=== PATIENT | male | born 1940 | race Caucasian/White ===

== ENCOUNTER 2021-12-22 13:41 | Observation (INO) | payer OTHER ==
--- OUTSIDE RECORDS SUMMARY | 2021-12-22 13:43 | XMS REPORT | Continuity of Care Document ---
:1940 Author Organization [facility] t Address [address] [place] [address] Care Team Providers Name Role Phone Cosme JACSKON, N.S. Primary Care Physician Cosme JACKSON, N.S. Attending Clinician Bill Covington MD Attending Clinician Star Attending Clinician Unavailable COSME Admitting Clinician Unavailable Payers Payer Name Policy Type Policy Number Effective Date Expiration Date S ource Problems This patient has no known problems. Allergies, Adverse Reactions, Alerts Allergy Allergy Status Severity Reaction(s) Onset Inactive Treating Comm ents Source Name Type Date Date Clinician Sulfa Propensi Active Other (See Spitting Me thodi (Sulfona ty to Comments) 3-25 ou blood, st mide adverse 00:00: blood in Hospita Antibiot reaction 00 urine, l ics) s to fever drug Social History Social Habit Start Date Stop Date Quantity Comments Source History SDOH [facility] Alcohol Frequency Hospita l History SDOH [facility] Alcohol Std Hospital Drinks History SDOH [facility] Alcohol Binge Hospital Alcohol intake 2021-02-01 2021-02-01 .29 /d [facility] 00:00:00 00:00:00 Hospital Tobacco use and 2021-01-28 2021-01-28 Smokeless tobacco Me [facility]odist exposure 00:00:00 00:00:00 non-user Hospital Alcohol Comment 2021-01-28 2021-01-28 2 glasses/week Metho dist 00:00:00 00:00:00 Hospital History of 1965-12-02 Smoker [facility] tobacco use 00:00:00 Hospital Sex Ass[birth year] At [birth year] [facility] 00:00:00 00:00:00 Hospital Smoking Status Start Date Stop Date Source Ex-smoker 2021-01-28 00:00:00 2021-01-28 00:00:00 [facility] Ordered Filled Start Stop Current Ordering Indication Dosage Frequency Signature Comments Components Source Medication Medication Date Date Medication? Clinician (SIG) Name Name glucosamine Yes 1{tbl} Take 1 Me thodi sulfate 500 3-[address] mg tablet 03:03: mouth. Hospit a 21 l cholecalcif Yes 1000U Take 1,000 [facility] denys, 3-[address] vitamin D3, 03:03: mouth. Hosp gretel 1,000 unit 21 l tablet multivitami Yes 1{tbl} Take 1 Me thodi n,tx-iron-m 3-[address] inerals 03:03: mouth. Hospita tablet 21 l aspirin 81 Yes 81mg Chew 81 Meth adonis mg chewable 3-[address] tablet 03:03: Hospita 21 l traMADoL Yes [facility] (ULTRAM) 50 3-24 st mg tablet 00:00: Hospita 00 l cephalexin 0 Yes [facility] (KEFLEX) 3-24 st 500 MG 00:00: Hospita capsule 00 l carbidopa-l Yes 1{tbl} Q.[id number] Take 1 [facility] evodopa 3-10 [id number] tablet by s t (SINEMET) 00:00: 3D mouth 3 Hospi ta 25-100 mg 00 (three) l per tablet times a day. promethazin Yes TAKE 1 Meth adonis e 3-[address] (PHENERGAN) 00:00: MOUTH 4 6 H ospita 25 MG 00 HOURS l tablet NEEDED FOR NAUSEA montelukast Yes 10mg QD Take 10 mg [facility] (SINGULAIR) 1-[address] 10 mg 00:00: every Hospita tablet 00 morning. l omeprazole Yes 40mg QD Take 40 mg M [facility] (PriLOSEC) 1-[address] 40 MG 00:00: daily. Hospita capsule 00 l finasteride Yes 5mg QD Take 5 mg M [facility] (PROSCAR) 5 1-[address] mg tablet 00:00: daily. Hospit a 00 l Vital Signs Vital Name Observation Time Observation Value Comments Source Systolic blood 2021-01-29 15:01:00 140 mm[Hg] [facility] pressure Diastolic blood 2021-01-29 15:01:00 63 mm[Hg] [facility] pressure Heart rate 2021-01-29 15:01:00 64 /min [facility] [place] [place] Body temperature 2021-01-29 15:01:00 36.56 Mary [facility] Respiratory rate 2021-01-29 15:01:00 15 /min [facility] Oxygen saturation in 2021-01-29 15:01:00 100 /min [facility] Arterial blood by Pulse oximetry Body height 2021-01-29 12:40:[address] [facility] [place] [place] Body weight 2021-01-29 12:40:[address] [facility] [place] [place] BMI 2021-01-29 12:40:00 34.73 kg/m2 [facility] [place] [place] Procedures Procedure Date / Time Performed Performing Clinician Sourc e RECONSTRUCTION, EYELID 2021-01-29 [facility]:32[facility] 2021-01-26 15:20:00 [facility] 2021-01-04 18:35:00 [facility] Arun [facility] RT-PCR COVID-19 QUALITATIVE 2020-12-14 16:15:00 [facility] RT-PCR Plan of Care Planned Activity Planned Date Details Comments Source Future Scheduled 2021-12-07 COVID-19 VACCINE (1) [facility] Test 19:38:07 [code = COVID-19 VACCINE (1)] Future Scheduled 2021-12-07 SHINGLES VACCINES (#1) [facility] Test 19:38:07 [code = SHINGLES VACCINES (#1)] Future Scheduled 2021-12-07 65+ PNEUMOCOCCAL [facility] Test 19:38:07 VACCINE (1 of 1 - PPSV23) [code = 65+ PNEUMOCOCCAL VACCINE (1 of 1 - PPSV23)] Future Scheduled 2021-12-07 [facility]ACCINE [facility] 19:38:07 [code = INFLUENZA VACCINE] Encounters Start End Encounter Admission Attending Care Care Encounter Source Date/Time Date/Time Type Type Clinicians Facility Department ID 2021-01-29 2021-01-29 [facility] 1.2.840.1 [id number] [facility] 05:46:00 23:59:00 Encounter Arun [id number] 3.430.2.7 Hospit a .3.652919 l .8 2021-01-29 2021-01-29 Anesthesia Herbie Covington 1.2.840 .1 [id number] [facility] 08:32:00 09:33:00 Event Fernando Graves 63171.1.[address] 3.430.2.7 Hospit a .3.227484 l .8 2021-01-29 2021-01-29 Surgery [facility] 1.2.840.1 [id number] [facility] 07:30:00 08:15:[id number] 3.430.2.7 Hospit a .3.570445 l .8 2021-01-29 2021-01-29 Travel 1.2.840.1 1.2.284.167 [id number] [facility] 00:00:00 00:00:[address] 3.430.2.7 0.2.7.3.698 Ho spita .3.959790 084.8 l .8 2021-01-26 2021-01-26 [facility], 1.2.840.1 [id number] [facility] 10:11:57 10:16:[address] 3.430.2.7 Hospit a .3.637351 l .8 2021-01-26 2021-01-26 Travel 1.2.840.1 1.2.321.778 [id number] [facility] 00:00:00 00:00:[address] 3.430.2.7 0.2.7.3.698 Ho spita .3.921704 084.8 l .8 2021-01-04 2021-01-04 Lab Cosme, 1.2.840.1 [id number] [facility] 12:32:25 12:37:[address] 3.430.2.7 Hospit a .3.557015 l .8 2021-01-04 2021-01-04 Travel 1.2.840.1 1.2.256.903 [id number] [facility] 00:00:00 00:00:[address] 3.430.2.7 0.2.7.3.698 Ho spita .3.667263 084.8 l .8 2020-12-14 2020-12-14 Lab Cosme, 1.2.840.1 [id number] [facility] 10:04:59 10:19:[address] 3.430.2.7 Hospit a .3.621448 l .8 2020-12-14 2020-12-14 Travel 1.2.840.1 1.2.299.538 [id number] [facility] 00:00:00 00:00:[address] 3.430.2.7 0.2.7.3.698 Ho spita .3.141863 084.8 l .8 Results Test Description Test Time Test Comments Results Result Comments Source COVID-19 qualitative PCR 2021-01-27 00:21:42 Test Item Value Reference Range Interpretation Comme nts Interpretation (test code = Negative results do not [id number]) preclude 2019-nCoV infection and should not be used as the sole basis for treatment or other patient management decisions. Negative results must be combined with clinical observations, patient history, and epidemiological information. COVID-19 qualitative RT-PCR Not-Detected Not-Detected result (test code = 61572-3) COVID-19 qualitative RT-PCR See link below for PDF Lab Case Number: (test code = 7070) Report [id number] 001 [facility]
[2021-12-22 15:08] LABS: Absolute Lymphocytes (CBC) 2.7 K/uL (0.7-4.9); Hematocrit 42.6 % (39.6-49.0); Lymphocytes % 39.9 % (15.3-44.8); MPV 9.1 fL (7.6-11.3)
--- NOTE | 2021-12-22 15:09 | RAD REPORT ---
EXAM DESCRIPTION: RAD - Chest Single View - 12/22/2021 3:03 pm CLINICAL HISTORY: CHEST PAIN COMPARISON: Chest Pa And Lat (2 Views) dated 07/24/2018; CHEST PA AND LAT 2 VIEW dated 02/21/2013; IRENE ST SINGLE VIEW dated 06/11/2010 FINDINGS: Lines: None. Lungs: No evidence of edema or pneumonia. Pleural: No significant pleural effusions or pneumothorax. Cardiac: The heart size is within normal limits. Bones: No acute fractures. Other: IMPRESSION: No acute cardiopulmonary disease.
[2021-12-22 15:22] LABS: Protime INR 1.14
[2021-12-22 15:27] LABS: Albumin 3.7 g/dL (3.4-5.0); Bilirubin Direct 0.2 mg/dL (0-0.2); Bilirubin Total 0.6 mg/dL (0.2-1.0); Protein, Total 7.5 g/dL (6.4-8.2); Troponin High Sensitivity 15.2 pg/mL (<58.9)
[2021-12-22 15:47] LABS: Potassium 4.8 mmol/L (3.5-5.1)
[2021-12-22] MEDS ORDERED: METOPROLOL TARTRATE 5 MG/5 ML INJ IV ONE (17:28)
--- NOTE | 2021-12-22 18:18 | ER ---
Nurse's Notes [facility] Name: Good Pinzon Age: 81 yrs Sex: Male : 1940 Arrival Date: 12/22/2021 Time: 13:43 Bed 23 Private MD: Valerie Bray C Diagnosis: Unspecified atrial fibrillation;Chest pain, unspecified;Shortness of breath;Palpitations;Weakness Presentation: 12/22 13:52 Chief complaint: Patient states: I woke up \T\ 0300 with chest tightness, sob, and jg9 weakness, I could hardly walk from one end of the room to the other without having to grab onto something, reports dizziness. Coronavirus screen: Vaccine status: Patient reports receiving the 2nd dose of the covid vaccine. Ebola Screen: Patient negative for fever greater than or equal to 101.5 degrees Fahrenheit, and additional compatible Ebola Virus Disease symptoms Patient denies exposure to infectious person. Patient denies travel to an Ebola-affected area in the 21 days before illness onset. Initial Sepsis Screen: Does the patient meet any 2 criteria? No. Patient's initial sepsis screen is negative. Does the patient have a suspected source of infection? No. Patient's initial sepsis screen is negative. Risk Assessment: Do you want to hurt yourself or someone else? Patient reports no desire to harm self or others. Onset of symptoms is unknown. 13:52 Method Of Arrival: Ambulatory j9 13:52 Acuity: ISMAEL 3 jg9 Triage Assessment: 14:05 General: Appears in no apparent distress. Behavior is calm. Pain: Complains of pain in jg9 chest Pain does not radiate. Cardiovascular: Reports shortness of breath, chest pressure Denies. Historical: - PMHx: 14:04 Atrial fibrillation; jg9 - Immunization history:: Client reports receiving the 2nd dose of the Covid vaccine, Pneumococcal vaccine is up to date, Flu vaccine is up to date. - Social history:: Smoking status: Patient denies any tobacco usage or history of. Screenin:05 Abuse screen: Denies threats or abuse. Denies injuries from another. Nutritional jg9 screening: No deficits noted. Tuberculosis screening: No symptoms or risk factors identified. Fall Risk None identified. Assessment: 14:24 General: Appears in no apparent distress. comfortable, well groomed, Behavior is calm, cb5 cooperative, appropriate for age. Pain: Complains of pain in chest. Neuro: No deficits noted. Cardiovascular: No deficits noted. Respiratory: No deficits noted. GI: No deficits noted. : No signs and/or symptoms were reported regarding the genitourinary system. EENT: No deficits noted. Derm: No deficits noted. Musculoskeletal: No deficits noted. 15:30 Reassessment: Patient and/or family updated on plan of care and expected duration. Pain cb5 level reassessed. 16:30 Reassessment: Patient and/or family updated on plan of care and expected duration. Pain cb5 level reassessed. 18:30 Reassessment: Patient and/or family updated on plan of care and expected duration. Pain cb5 level reassessed. Patient is alert, oriented x 3, equal unlabored respirations, skin warm/dry/pink. 20:51 Reassessment: Patient and/or family updated on plan of care and expected duration. Pain ll3 level reassessed. Patient is alert, oriented x 3, equal unlabored respirations, skin warm/dry/pink. Vital Signs: 13:52 BP 115 / 94; Pulse 65; Resp 20; Temp 97.7(O); Pulse Ox 94% on R/A; Weight 102.06 kg jg9 (R); Height 5 ft. 10 in. (177.80 cm); 14:26 BP 156 / 90; Pulse 99; Resp 16; Temp 98.6; Pulse Ox 98% ; cb5 15:30 BP 113 / 70; Pulse 100; Resp 16; Pulse Ox 98% ; Pain 0/10; cb5 16:00 BP 125 / 85; Pulse 62; Resp 16; Pain 0/10; cb5 17:30 BP 131 / 88; Pulse 108; Resp 16; Pulse Ox 98% ; Pain 0/10; cb5 17:35 BP 112 / 84; Pulse 96; Resp 16; Pulse Ox 98% ; cb5 17:45 BP 109 / 72; Pulse 101; Resp 16; Pulse Ox 98% ; cb5 18:00 BP 112 / 67; Pulse 93; Resp 16; Pulse Ox 98% ; cb5 18:15 BP 120 / 74; Pulse 96; Resp 16; Pulse Ox 98% ; Pain 0/10; cb5 19:00 BP 125 / 78; Pulse 74; Resp 14; Pulse Ox 98% ; ll3 20:17 BP 115 / 78; Pulse 60; Resp 15; Pulse Ox 98% ; ll3 20:30 BP 100 / 71; Pulse 74; Resp 16; Pulse Ox 98% ; ll3 13:52 Body Mass Index 32.28 (102.06 kg, 177.80 cm) j9 ED Course: 13:43 Patient arrived in ED. rg4 13:43 Valerie Bray MD is Private Physician. rg4 14:04 Triage completed. jg9 14:06 Arm band placed on left wrist. jg9 14:10 Cj Cherry MD is Attending Physician. kdr 14:24 Cathy Causey, RAMSES is Primary Nurse. cb5 15:02 Basic Metabolic Panel Sent. cb5 15:02 CBC with Diff Sent. cb5 15:02 LFT's Sent. cb5 15:02 Magnesium Sent. cb5 15:02 NT PRO-BNP Sent. cb5 15:02 PT-INR Sent. cb5 15:02 Troponin HS Sent. cb5 15:02 Basic Metabolic Panel Sent. cb5 15:03 XRAY Chest (1 view) In Process Unspecified. EDMS 18:17 Valerie Bray MD is Hospitalizing Provider. kdr 19:07 Report given to Phani Ambrose cb5 12/23 01:19 No provider procedures requiring assistance completed. Patient admitted, IV remains in ll3 place. No redness/swelling at site. Patient maintains SpO2 saturation greater than 95% on room air. Administered Medications: 12/22 17:32 Drug: Lopressor (metoprolol) 2.5 mg Route: IVP; Site: right antecubital; cb5 20:00 Drug: Eliquis (apixaban) 5 mg Route: PO; ll3 20:52 Follow up: Response: No adverse reaction ll3 20:00 Drug: Sotalol 80 mg Route: PO; ll3 20:52 Follow up: Response: No adverse reaction ll3 Outcome: 18:17 Decision to Hospitalize by Provider. kdr 12/23 01:19 Admitted to Med/surg accompanied by tech, via wheelchair, room 210, with chart, Report ll3 called to Timothy, RN Condition: stable Discharge instructions given to patient, Instructed on the need for admit, Demonstrated understanding of instructions. 01:20 Patient left the ED. ll3 Signatures: Dispatcher [employer] Cj Roa MD MD kdr Samantha Parra4 Arnol Roper RN RN ll3 Didi Moreno RN RN jg9 Cathy Causey RN RN cb5
--- NOTE | 2021-12-22 18:18 | EDPHYS ---
Physician Documentation [facility] Name: Good Pinzon Age: 81 yrs Sex: Male : 1940 Arrival Date: 12/22/2021 Time: 13:43 Bed 23 Private MD: Valerie Bray C ED Physician Cj Cherry HPI: 12/23 18:19 This 81 yrs old Male presents to ER via Ambulatory with complaints of Chest Pain, kdr Shortness Of Breath. 18:19 Patient woke at 3 AM with chest tightness and shortness of breath and weakness. He kdr stated he could hardly walk from one of the room to the other without having to grab onto something because he was dizzy. He has not had episodes as severe but has had similar episodes in the past. Historical: - PMHx: 12/22 14:04 Atrial fibrillation; jg9 - Immunization history:: Client reports receiving the 2nd dose of the Covid vaccine, Pneumococcal vaccine is up to date, Flu vaccine is up to date. - Social history:: Smoking status: Patient denies any tobacco usage or history of. ROS: 12/23 18:19 Constitutional: Negative for fever, chills, and weight loss, Eyes: Negative for injury, kdr pain, redness, and discharge, ENT: Negative for injury, pain, and discharge, Neck: Negative for injury, pain, and swelling, Abdomen/GI: Negative for abdominal pain, nausea, vomiting, diarrhea, and constipation, Back: Negative for injury and pain, : Negative for injury, bleeding, discharge, and swelling, MS/Extremity: Negative for injury and deformity, Skin: Negative for injury, rash, and discoloration, Psych: Negative for depression, anxiety, suicide ideation, homicidal ideation, and hallucinations, Allergy/Immunology: Negative for hives, rash, and allergies, Endocrine: Negative for neck swelling, polydipsia, polyuria, polyphagia, and marked weight changes, Hematologic/Lymphatic: Negative for swollen nodes, abnormal bleeding, and unusual bruising. Cardiovascular: Positive for chest pain, palpitations. Neuro: Positive for dizziness, Negative for altered mental status. Exam: 18:19 Constitutional: This is a well developed, well nourished patient who is awake, alert, kdr and in no acute distress. Head/Face: Normocephalic, atraumatic. Eyes: Pupils equal round and reactive to light, extra-ocular motions intact. Lids and lashes normal. Conjunctiva and sclera are non-icteric and not injected. Cornea within normal limits. Periorbital areas with no swelling, redness, or edema. Neck: Trachea midline, no thyromegaly or masses palpated, and no cervical lymphadenopathy. Supple, full range of motion without nuchal rigidity, or vertebral point tenderness. No Meningismus. Chest/axilla: Normal chest wall appearance and motion. Nontender with no deformity. No lesions are appreciated. Cardiovascular: Regular rate and rhythm with a normal S1 and S2. No gallops, murmurs, or rubs. Normal PMI, no JVD. No pulse deficits. Respiratory: Lungs have equal breath sounds bilaterally, clear to auscultation and percussion. No rales, rhonchi or wheezes noted. No increased work of breathing, no retractions or nasal flaring. Abdomen/GI: Soft, non-tender, with normal bowel sounds. No distension or tympany. No guarding or rebound. No evidence of tenderness throughout. Back: No spinal tenderness. No costovertebral tenderness. Full range of motion. Skin: Warm, dry with normal turgor. Normal color with no rashes, no lesions, and no evidence of cellulitis. MS/ Extremity: Pulses equal, no cyanosis. Neurovascular intact. Full, normal range of motion. Neuro: Awake and alert, GCS 15, oriented to person, place, time, and situation. Cranial nerves II-XII grossly intact. Motor strength 5/5 in all extremities. Sensory grossly intact. Cerebellar exam normal. Normal gait. Psych: Awake, alert, with orientation to person, place and time. Behavior, mood, and affect are within normal limits. Vital Signs: 12/22 13:52 BP 115 / 94; Pulse 65; Resp 20; Temp 97.7(O); Pulse Ox 94% on R/A; Weight 102.06 kg jg9 (R); Height 5 ft. 10 in. (177.80 cm); 14:26 BP 156 / 90; Pulse 99; Resp 16; Temp 98.6; Pulse Ox 98% ; cb5 15:30 BP 113 / 70; Pulse 100; Resp 16; Pulse Ox 98% ; Pain 0/10; cb5 16:00 BP 125 / 85; Pulse 62; Resp 16; Pain 0/10; cb5 17:30 BP 131 / 88; Pulse 108; Resp 16; Pulse Ox 98% ; Pain 0/10; cb5 17:35 BP 112 / 84; Pulse 96; Resp 16; Pulse Ox 98% ; cb5 17:45 BP 109 / 72; Pulse 101; Resp 16; Pulse Ox 98% ; cb5 18:00 BP 112 / 67; Pulse 93; Resp 16; Pulse Ox 98% ; cb5 18:15 BP 120 / 74; Pulse 96; Resp 16; Pulse Ox 98% ; Pain 0/10; cb5 19:00 BP 125 / 78; Pulse 74; Resp 14; Pulse Ox 98% ; ll3 20:17 BP 115 / 78; Pulse 60; Resp 15; Pulse Ox 98% ; ll3 20:30 BP 100 / 71; Pulse 74; Resp 16; Pulse Ox 98% ; ll3 13:52 Body Mass Index 32.28 (102.06 kg, 177.80 cm) jg9 MDM: 18:17 Patient medically screened. [facility] 12/23 18:19 Data reviewed: vital signs, nurses notes, lab test result(s), radiologic studies. kdr Counseling: I had a detailed discussion with the patient and/or guardian regarding: the historical points, exam findings, and any diagnostic results supporting the discharge/admit diagnosis, lab results, radiology results, the need for outpatient follow up. 12/22 14:15 Order name: Basic Metabolic Panel [facility] 12/22 14:15 Order name: CBC with Diff; Complete Time: 16:52 [facility] 12/22 14:15 Order name: LFT's; Complete Time: 16:52 [facility] 12/22 14:15 Order name: Magnesium; Complete Time: 16:52 [facility] 12/22 14:15 Order name: NT PRO-BNP; Complete Time: 16:52 [facility] 12/22 14:15 Order name: PT-INR; Complete Time: 16:52 [facility] 12/22 14:15 Order name: Troponin HS; Complete Time: 16:52 [facility] 12/22 14:16 Order name: Basic Metabolic Panel; Complete Time: 16:52 ED[facility] 12/22 18:28 Order name: Basic Metabolic Panel [facility] 12/22 18:28 Order name: Basic Metabolic Panel [facility] 12/22 18:28 Order name: CBC with Automated Diff [facility] 12/22 18:28 Order name: CBC with Automated Diff [facility] 12/22 19:01 Order name: COVID-19 SARS RT PCR (Document "Date of Onset" if Symptomatic) bd 12/23 00:13 Order name: SARS-COV-2 RT PCR [facility] 12/22 14:06 Order name: EKG - Nurse/Tech; Complete Time: 14:06 jg9 12/22 14:15 Order name: XRAY Chest (1 view); Complete Time: 16:52 kdr 12/22 14:15 Order name: EKG; Complete Time: 14:16 kdr 12/22 14:15 Order name: Cardiac monitoring; Complete Time: 15:02 kdr 12/22 14:15 Order name: IV Saline Lock; Complete Time: 15:02 kdr 12/22 14:15 Order name: Labs collected and sent; Complete Time: 15:02 kdr 12/22 14:15 Order name: O2 Per Protocol; Complete Time: 15:02 kdr 12/22 14:15 Order name: O2 Sat Monitoring; Complete Time: 15:02 kdr 12/22 18:28 Order name: CONS Physician Consult [facility] 12/22 18:28 Order name: EKG Electrocardiogram [facility] 12/22 18:28 Order name: EKG Electrocardiogram [facility] 12/22 18:28 Order name: EKG Electrocardiogram [facility] 12/22 18:28 Order name: EKG Electrocardiogram [facility] Administered Medications: 12/22 17:32 Drug: Lopressor (metoprolol) 2.5 mg Route: IVP; Site: right antecubital; cb5 20:00 Drug: Eliquis (apixaban) 5 mg Route: PO; ll3 20:52 Follow up: Response: No adverse reaction ll3 20:00 Drug: Sotalol 80 mg Route: PO; ll3 20:52 Follow up: Response: No adverse reaction ll3 Disposition Summary: 12/22/21 18:17 Hospitalization Ordered Hospitalization Status: Inpatient Admission kdr Provider: Valerie Bray Location: Telemetry/MedSurg (Inpatient) kdr Condition: Fair kdr Problem: new kdr Symptoms: have improved kdr Bed/Room Type: Standard kdr Room Assignment: 210(12/23/21 00:15) eb1 Diagnosis - Unspecified atrial fibrillation kdr - Chest pain, unspecified kdr - Shortness of breath kdr - Palpitations kdr - Weakness kdr Forms: - Medication Reconciliation Form kdr - SBAR form kdr Signatures: Dispatcher [employer] Cj Roa MD MD kdr Basinger, Emily, RN RN eb1 Arnol Roper RN RN ll3 Didi Moreno RN RN jg9 Cathy Causey RN RN cb5 Corrections: (The following items were deleted from the chart) 12/23 00:15 12/22 18:17 kdr eb1
[2021-12-22] MEDS ORDERED: ACETAMINOPHEN 500 MG TAB PO PRN (18:25)
[2021-12-22] MEDS ORDERED: ONDANSETRON 4 MG/2 ML VIAL IV PRN (18:25)
[2021-12-22] MEDS: APIXABAN 5 MG TABLET PO SCH (21:00)
[2021-12-22 22:16] VITALS: O2SAT 95
[2021-12-23] MEDS ORDERED: NA CHLORIDE 0.9% 500 ML ONE (00:26)
[2021-12-23 01:50] VITALS: BMI 31.4
[2021-12-23] MEDS ORDERED: NA CHLORIDE 0.9% 250 ML IV ONE ×2 (04:54→05:31)
[2021-12-23] MEDS ORDERED: SOTALOL HCL 80 MG TAB PO SCH (06:00)
[2021-12-23 06:16] LABS: Absolute Lymphocytes (CBC) 2.7 K/uL (0.7-4.9); Hematocrit 39.7 % (39.6-49.0); MPV 8.6 fL (7.6-11.3); RBC Red Blood Cell Count 4.25 M/uL (4.33-5.43)
[2021-12-23 06:27] LABS: Potassium 4.3 mmol/L (3.5-5.1)
[2021-12-23] MEDS ORDERED: PANTOPRAZOLE 40MG TABLET PO SCH (06:30)
[2021-12-23 06:38] LABS: Thyroid Stimulating Hormone 2.17 uIU/mL (0.360-3.740)
[2021-12-23 07:51] LABS: Troponin High Sensitivity 23.1 pg/mL (<58.9)
[2021-12-23 08:20] LABS: Blood Morphology Comment NOT SEEN (NOT SEEN); Platelet Estimate ADEQ
--- NOTE | 2021-12-23 08:46 | HP ---
Date of Admission: 12/22/2021 Chief Complaint: Not feeling good. History Of Present Illness: This is an 81-year-old pleasant male patient, who came into office today with his reporting that since he woke up this morning, he has not felt good. He felt like octavio patel some chest tightness, feeling really tired, getting short of breath easily with just walking acros s the room, and also feeling dizzy. He checked his blood pressure and pulse several times since he w mayelin up and his heart rate has been around 110 to 128 range and blood pressure has been on the lower s juan around 90/50 range. After I saw him in the office, decision was made to send him to emergency ro om for further evaluation and management for new onset atrial fibrillation problem and details were d iscussed with ER physician requesting evaluation for this problem after the patient was evaluated in the ER. He had atrial fibrillation with rapid ventricular rate. He was given 1 dose of IV Lopressor 2.5 mg and blood pressure improved, and he was admitted to the hospital. Allergies: TO SULFA. Medications: Aspirin 81 mg daily, atorvastatin 20 mg daily, carbidopa/levodopa 50/200 mg as prescrib ed by neurologist, montelukast 10 mg daily, tamsulosin 0.4 mg daily, omeprazole 40 mg daily, vitamin D3 daily. Review of Systems: Constitutional: As mentioned above. Cardiovascular: As mentioned above. All other systems reviewed and negative. Past Medical History: Significant for Parkinson disease, gastroesophageal reflux disease, nonalcohol ic fatty liver disease, benign prostatic hypertrophy, anemia. DVT in 1988, 2000, and 2006 and was ev aluated by mobility manager, Dr. Ingram and did not recommend any long-term anticoagulation therapy. Past Surgical History: Significant for hernia repair, appendectomy, knee surgery. Family History: Father , had prostate cancer. Mother , had colon cancer. Brother , had leukemia. Social History: Prior history of smoking. Use of alcohol occasional glass of wine. Immunization History: The patient had his influenza vaccine on August 15, 2020 and COVID-19 vaccine on December 05, 2020, second dose on January 03, 2021, and third dose August 10, 2021. Physical Examination: Vital Signs: When the patient came to office earlier today; pulse rate was 128 and irregular. Manua l blood pressure was 90/60, respiratory rate 16, weight 225.2 pounds, height 70 inches. General: Awake, alert, oriented, not in distress. HEENT: Head atraumatic, normocephalic. Conjunctivae nonerythematous. Sclerae white. Mouth, no thr ush or edema noted. Ears/Nose, no mass, lesion, discharge noted. Neck: Supple. No JVD, lymph nodes, bruit, thyromegaly noted. Lungs: Bilateral good equal air entry. Clear to auscultation. No rhonchi. No rales. Heart: Normal heart sounds, no murmur or gallop. Abdomen: Soft, bowel sounds normal. No guarding, rigidity, tenderness, mass, hepatosplenomegaly, dis tention, or bruit noted. Extremities: No leg edema. No calf tenderness. Skin: No rash, ulcer, cellulitis. Lymphatics: No lymph node enlargement in neck, supraclavicular, infraclavicular region. Neuro: No focal neurological deficit. Chest: Unremarkable. External Genitalia: Deferred. Rectal: Deferred. Laboratory Data: COVID-19 test negative. Chest x-ray, no acute changes. White count 6.7, hemoglobi n of 14.4, platelets 163. Sodium 138, potassium 4.8, chloride 106, bicarb 28, BUN 18, creatinine 1.2 9, glucose 93, magnesium 2. Liver function tests unremarkable. Impression: 1.Atrial fibrillation, paroxysmal. 2.Parkinson disease. 3.Chest pain. 4.Gastroesophageal reflux disease. 5.Benign prostatic hypertrophy. 6.Nonalcoholic fatty liver disease. Plan: Admit the patient to hospital for further evaluation and management of this problem. For dajuan ortiz, he is expected to spend 2 midnights in hospital. We will admit him to telemetry, start him on Eliquis and sotalol. Consult Cardiology. We will get echo with Doppler tomorrow and home medicatio ns will be continued per order. Details and plan of treatment discussed with the patient. I will se e him tomorrow for followup. CORBY/MODL Voice ID: [id number]
[2021-12-23] MEDS ORDERED: TAMSULOSIN 0.4 MG SR CAP PO SCH (09:00)
[2021-12-23] MEDS ORDERED: MONTELUKAST 10 MG TAB PO SCH (09:00)
[2021-12-23] MEDS ORDERED: AMIODARONE HCL 200 MG TAB PO SCH (09:00)
[2021-12-23] MEDS ORDERED: ASPIRIN EC 81 MG TAB PO SCH (09:00)
[2021-12-23] MEDS: APIXABAN 5 MG TABLET PO SCH (09:56)
[2021-12-23] MEDS: CARBIDOPA/LEVODOPA 25/250 TAB PO SCH ×2 (09:56→12:52)
[2021-12-23 17:22] VITALS: BP 111/57; TEMP 98.3
[2021-12-23] MEDS ORDERED: ATORVASTATIN 20 MG TAB PO SCH (21:00)
--- NOTE | 2021-12-23 21:25 | CON ---
Date of Consultation: 12/23/2021 Reason For Consultation: Atrial fibrillation. History Of Present Illness: An 81-year-old male with a history of Parkinson disease, anemia, and DVT , presented to Dr. Bray's office due to not feeling well. He was found to be in atrial fibrillation with rapid ventricular response range of the 120s. Sent to the emergency room, received one dose of sotalol, one dose of IV Lopressor and converted to sinus rhythm. However, the patient became hypoten sive after some hydration. Blood pressure went up and sotalol was discontinued. Past Medical History: As outlined above in the HPI. Medications: Refer reconciliation sheet for detailed list. Allergies: SULFA. Family History: No mature coronary artery disease or cancer. Social History: Does not smoke or drink. Does not use any drugs. Review of Systems: All systems reviewed and they were negative except for mentioned in HPI. Physical Examination: Vital Signs: Temperature is 98.0, pulse 73, breathing at 19, blood pressure 113/58, saturating 98% r oom air. General: Pleasant elderly male, in no apparent distress. Head and Neck: Pupils are equal, reactive to light. Intact eye movements. No JVD. No cervical lym phadenopathy. Neck: Supple. Thyroid is not enlarged. Lungs: Clear to auscultation bilaterally. No rhonchi, rales, or crackles. No accessory muscle use. Heart: Irregular. No extra sounds. Abdomen: Soft, nontender. Bowel sounds positive. No organomegaly. No masses or hernia. No rigidi ty or rebound. Extremities: No edema, clubbing or cyanosis. Intact pulses. Skin: No rashes. Neurologic: Alert, awake, oriented x3. No acute focal deficits appreciated. Investigations: Troponins are negative. Creatinine is 1.0. Liver enzymes are normal. Assessment And Recommendation: Atrial fibrillation with rapid ventricular response. The patient con verted to sinus rhythm on one dose of sotalol. I recommend to put him on amiodarone 200 mg by mouth twice a day. Observe him. If he continues to be stable overnight, can be discharged on that and fol low up with me in a month at the office at which time, we will reduce it to 200 mg daily. I am choos ing amiodarone due to low blood pressure and not ability to continue with sotalol. Thank you for the consult. SR/MODL Voice ID: [id number] Report ID: [id number]
--- NOTE | 2021-12-24 07:32 | ECHO ---
HEIGHT: 5 ft 10 in WEIGHT: 219 lb 6.4 oz DATE OF STUDY: 12/23/[address]: Srikanth Bray MD 2-DIMENSIONAL: YES M.MODE: YES DOPPLER: YES COLOR FLOW: YES TDS: NO PORTABLE: NO DEFINITY: NO BUBBLE STUDY: NO DIAGNOSIS: ATRIAL FIBRILLATION CARDIAC HISTORY: CATHERIZATION: NO SURGERY: NO PROSTHETIC VALVE: NO PACEMAKER: NO MEASUREMENTS (cm) DIASTOLIC (NORMALS) SYSTOLIC (NORMALS) IVSd 1.2 (0.6-1.2) LA Diam 3.8 (1.9-4.0) LVEF 51% LVIDd 4.6 (3.5-5.7) LVIDs 3.4 (2.0-3.5) %FS 26% LVPWd 1.2 (0.6-1.2) Ao Diam 2.7 (2.0-3.7) 2 DIMENSIONAL ASSESSMENT: RIGHT ATRIUM: NORMAL LEFT ATRIUM: ENLARGED RIGHT VENTRICLE: NORMAL LEFT VENTRICLE: NORMAL TRICUSPID VALVE: MITRAL VALVE: PULMONIC VALVE: AORTIC VALVE: NORMAL PERICARDIAL EFFUSION: TRACE AORTIC ROOT: NORMAL LEFT VENTRICULAR WALL MOTION: NOT SEEN WELL DOPPLER/COLOR FLOW: SEE BELOW COMMENTS: TECHNICALLY DIFFICULT STUDY BUT LEFT VENTRICULAR EJECTION FRACTION APPEARS TO BE ON THE LOW NORMAL LIMITS. LEFT ATRIAL ENLARGEMENT. MILD MITRAL, TRICUSPID AND PULMONARY REGURGITATION. TECHNOLOGIST: Sanjuanita KELLER
--- NOTE | 2021-12-24 18:43 | DS ---
Date of Discharge: 12/23/2021 Disposition: Discharged to go home. Physical Examination: HEENT: Unremarkable. Lungs: Clear to auscultation. Heart: Sounds normal. Abdomen: Soft. Bowel sounds normal. No guarding, rigidity, tenderness, distention. Extremities: No leg edema. Discharge Medications And Instructions: 1. Continue all prior home medications except stop aspirin. 2. Start amiodarone 200 mg by mouth 2 times a day. 3. Eliquis 5 mg by mouth 2 times a day. 4. Follow up at my office next week on , which is December 30, 2021, at 9 a.m. Final Diagnoses: 1. Atrial fibrillation, paroxysmal. 2. Parkinson disease. 3. Chest pain. 4. Gastroesophageal reflux disease. 5. Benign prostatic hypertrophy. 6. Nonalcoholic fatty liver disease. Laboratory Data: Upon admission yesterday white count 6.7, hemoglobin 14.4, platelets 163. Today, white count 6.3, hemoglobin 13.3, platelets 164. Yesterday sodium 138, potassium 4.8, chloride 106, bicarb 28, BUN 18, creatinine 1.29, glucose 93. Liver function tests unremarkable. Magnesium normal at 2 today, TSH normal at 2.17. Troponin was normal yesterday. Hospital Course: An 81-year-old pleasant male patient, who came into office yesterday complaining of not feeling good. Please see dictated H and P for more information. The patient was evaluated at the office, he was diagnosed as having new onset atrial fibrillation with rapid ventricular rate. His blood pressure was low at office, it was 90/60 and he was sent to emergency room. After he was evaluated in the emergency room, he was admitted to the hospital. He received 2.5 mg of IV Lopressor in the emergency room and received 1 dose of sotalol 80 mg in the ER yesterday evening and Eliquis 5 mg. Early this morning around 4 o'clock or so, his blood pressure dropped down around 84 to 85 systolic and he was asymptomatic lying in bed. The patient had converted to sinus rhythm sometime last night while he was still in the emergency room and ever since he came to the floor around 1:30 a.m. he has been in sinus rhythm. This morning when I saw him, he was in sinus bradycardia with sinus arrhythmia and prior to my arrival, he received 500 cc of IV fluid bolus as ordered for low blood pressure and that actually helped, his systolic blood pressure came up to 102 to 104 systolic. The patient was feeling fine. Details were discussed with his signal tower operator, Dr. Tee, who was requested to evaluate the patient for this atrial fibrillation problem and I did discuss with him about all these details. The patient had converted to sinus rhythm after just receiving 1 dose of sotalol, but now considering low blood pressure this morning, I discontinued his sotalol and after talking to Dr. Tee, he suggested to start the patient on amiodarone 200 mg 2 times a day for 1 month and then reduce dose to 200 mg once a day. The patient received his first dose of amiodarone this morning and echocardiogram was done today, result pending. I will follow up on that as outpatient and the patient otherwise remained medically stable, so he was discharged to go home later this evening with above-mentioned medications and instructions. This morning when I saw the patient, I did inform him about taking his anticoagulation therapy, Eliquis as prescribed and he was made aware of bleeding complications and in case if he has any bleeding anywhere or if he has any head injury, tend to come to emergency room for evaluation. CORBY/ROSIE Voice ID: [id number] Report ID: [id number] MTDVíctor
--- NOTE | 2021-12-28 16:12 | EKG ---
Test Date: 2021-12-23 Test Time: 06:44:03 Director Independent: GOYO MEASUREMENT RESULTS: Intervals: Rate: 63 MO: 208 QRSD: 96 QT: 446 QTc: 456 [place]: P: 50 MO: 208 QRS: -57 T: -48 INTERPRETIVE STATEMENTS: Sinus rhythm with marked sinus arrhythmia Left axis deviation Cannot rule out Anterior infarct, age undetermined Abnormal ECG Compared to ECG 12/23/2021 06:43:12 Myocardial infarct finding now present Sinus bradycardia no longer present T-wave abnormality no longer present Possible ischemia no longer present Electronically Signed On 12-28-21 16:11:28 OB TECH by Zaire Zapien
== END 2021-12-23 19:24 | disposition home or self-care (01) ==
LOC: ER 13:41 → ERHOLD 18:27 → INTOOBSV 18:27 → ERHOLD 22:07 → 2ND 12-23 00:37
PROVIDERS: ADMIT Internal Medicine; ATTEND Internal Medicine
DX: I48.0 Paroxysmal atrial fibrillation (principal); G20 Parkinson's disease; R07.9 Chest pain, unspecified; K21.9 Gastro-esophageal reflux disease without esophagitis; I95.9 Hypotension, unspecified; N40.0 Benign prostatic hyperplasia without lower urinary tract symptoms; K76.0 Fatty (change of) liver, not elsewhere classified; D64.9 Anemia, unspecified; Z79.82 Long term (current) use of aspirin; Z88.2 Allergy status to sulfonamides; Z87.891 Personal history of nicotine dependence; Z86.718 Personal history of other venous thrombosis and embolism; Z20.822 Contact with and (suspected) exposure to COVID-19; Z80.42 Family history of malignant neoplasm of prostate; Z80.0 Family history of malignant neoplasm of digestive organs; Z80.6 Family history of leukemia
CPT/HCPCS: 93005 ×2; 93306; 85025 ×2; 80048 ×2; 36415; 83735; 85610; 80076; 84443; 84484 ×2; 83880; 71045; 96374; 99285; U0003; J7050 ×2; J7040; G0378 ×3

== ENCOUNTER 2022-02-02 07:50 | Emergency (ER) | payer OTHER ==
--- OUTSIDE RECORDS SUMMARY | 2022-02-02 07:54 | XMS REPORT | Continuity of Care Document ---
:1940 Author Organization [facility] t Address [address] [place] [address] Care Team Providers Name Role Phone Cosme JACKSON, N.S. Primary Care Physician Cosme JACKSON, N.S. [...] Stop Date Quantity Comments Source History SDOH Religion Alcohol Frequency Hospita l History SDOH Religion Alcohol Std Hospital Drinks History SDOH Religion Alcohol Binge Hospital Alcohol intake 2021-02-01 2021-02-01 .29 /d Religion 00:00:00 00:00:00 Hospital Tobacco use and 2021-01-28 2021-01-28 Smokeless tobacco Me [facility]od[facility] exposure 00:00:00 00:00:00 non-user Hospital Alcohol Comment 2021-01-28 2021-01-28 2 glasses/week [facility] 00:00:00 00:00:00 Hospital History of 1965-12-02 Smoker Religion tobacco use 00:00:00 Hospital Sex Assigned At [birth year] Religion 00:00:00 00:00:00 Hospital Smoking Status Start Date Stop Date Source Ex-smoker 2021-01-28 00:00:00 2021-01-28 [facility]00[facility] F[facility] Start Stop Current Ordering [...] Hospita capsule 00 l carbidopa-l Yes 1{tbl} [id number] Take 1 [facility] evodopa 3-10 [id number] tablet by s t (SINEMET) 00:00: 3D [...] Source Systolic blood 2021-01-29 15:01:00 140 mm[Hg] [facility] pressure Diastolic blood 2021-01-29 15:01:00 63 mm[Hg] [facility] pressure Heart rate 2021-01-29 15:01:00 64 /min [facility] Body temperature 2021-01-29 15:01:00 36.56 [facility] Respiratory rate 2021-01-29 15:01:00 15 /min [facility] Oxygen saturation in 2021-01-29 15:01:00 100 /min [facility] Arterial blood by Pulse oximetry Body height 2021-01-29 12:40:00 177.8 cm [facility] Body weight 2021-01-29 12:40:00 109.799 kg [facility] BMI 2021-01-29 12:40:00 34.73 kg/m2 [facility] Procedures Procedure Date / Time Performed Performing Clinician Sourc e RECONSTRUCTION, EYELID [facility]29 [facility] 2021-01-26 15:20:00 [facility] 2021-01-04 18:35:00 [facility] Arun [facility] RT-PCR COVID-19 QUALITATIVE 2020-12-14 16:15:00 [facility] RT-PCR Plan of Care Planned Activity Planned Date Details Comments Source Future Scheduled 2021-12-07 COVID-19 VACCINE (1) [facility] Test 19:38:07 [code = COVID-19 VACCINE (1)] Future Scheduled 2021-12-07 SHINGLES VACCINES (#1) [facility] Test 19:38:07 [code = SHINGLES VACCINES (#1)] Future Scheduled 2021-12-07 65+ PNEUMOCOCCAL [facility] Test 19:38:07 VACCINE (1 of 1 - PPSV23) [code = 65+ PNEUMOCOCCAL VACCINE (1 of 1 - PPSV23)] Future Scheduled 2021-12-07 [facility]INE [facility] Test 19:38:07 [code = INFLUENZA VACCINE] Encounters Start End Encounter Admission Attending Care Care Encounter Source Date/Time Date/Time Type Type Clinicians Facility Department ID 2021-01-29 2021-01-29 [facility] 1.2.840.1 [id number] [facility] 05:46:00 23:59:00 Encounter Arun [address]4079.1.[address] 3.430.2.7 Hospit a .3.189725 l .8 2021-01-29 2021-01-29 Anesthesia Herbie Covington 1.2.840 .1 [id number] [facility] 08:32:00 09:33:00 Event Fernando Graves [address]9718.1.[address] 3.430.2.7 Hospit a .3.666275 l .8 2021-01-29 2021-01-29 Surgery [facility] 1.2.840.1 [id number] [facility] 07:30:00 08:15:[address] 3.430.2.7 Hospit a .3.868402 l .8 2021-01-29 2021-01-29 Travel 1.2.840.1 1.2.438.189 [id number] [facility] 00:00:00 00:00:[address] 3.430.2.7 0.2.7.3.698 Ho spita .3.070966 084.8 l .8 2021-01-26 2021-01-26 Lab [facility], 1.2.840.1 [id number] [facility] 10:11:57 10:16:[address] 3.430.2.7 Hospit a .3.890159 l .8 2021-01-26 2021-01-26 Travel 1.2.840.1 1.2.010.223 [id number] [facility] 00:00:00 00:00:[address] 3.430.2.7 0.2.7.3.698 Ho spita .3.765751 084.8 l .8 2021-01-04 2021-01-04 Lab Cosme, 1.2.840.1 [id number] [facility] 12:32:25 12:37:[address] 3.430.2.7 Hospit a .3.221202 l .8 2021-01-04 2021-01-04 Travel 1.2.840.1 1.2.042.605 [id number] [facility] 00:00:00 00:00:[address] 3.430.2.7 0.2.7.3.698 Ho spita .3.495139 084.8 l .8 2020-12-14 2020-12-14 Lab Cosme, 1.2.840.1 [id number] [facility] 10:04:59 10:19:[address] 3.430.2.7 Hospit a .3.795373 l .8 2020-12-14 2020-12-14 Travel 1.2.840.1 1.2.343.609 [id number] [facility] 00:00:00 00:00:[address] 3.430.2.7 0.2.7.3.698 Ho spita .3.957666 084.8 l .8 Results Test Description Test Time Test Comments Results Result Comments Source COVID-19 qualitative PCR 2021-01-27 00:21:42 Test Item Value Reference Range Interpretation Comme nts Interpretation (test code = Negative results do not [id number]) preclude 2019-nCoV infection and should not be used as the sole basis for treatment or other patient management decisions. Negative results must be combined with clinical observations, patient history, and epidemiological information. COVID-19 qualitative RT-PCR Not-Detected Not-Detected result (test code = 32123-4) COVID-19 qualitative RT-PCR See link below for PDF Lab Case Number: (test code = 7070) Report [id number] 001 [facility]
--- NOTE | 2022-02-02 08:18 | RAD REPORT ---
EXAM DESCRIPTION: CT - CTHCSPWOC - 02/02/2022 8:08 am CLINICAL HISTORY: Trauma, head and neck injury. Fall COMPARISON: No comparisons TECHNIQUE: Axial 5 mm thick images of the head were obtained. Axial 2 mm thick images of the cervical spine were obtained with sagittal and coronal reconstruction images generated and reviewed. All CT scans are performed using dose optimization technique as appropriate and may include automated exposure control or mA/KV adjustment according to patient size. FINDINGS: CT HEAD WITHOUT CONTRAST: No acute hemorrhage, hydrocephalus or extra-axial collection is identified.No areas of brain edema or midline shift. Circumferential thickening in left maxillary sinus.The calvarium is intact. CT CERVICAL SPINE WITHOUT CONTRAST: No fracture or subluxation.No prevertebral soft tissues swelling is identified. Multilevel cervical s pondylosis with varying degrees of neural foraminal narrowing. This is most advanced at the C5-6 and C6-7 levels. There is a least mild central spinal stenosis at these levels. IMPRESSION: No acute intracranial or cervical spine findings.
[2022-02-02] MEDS ORDERED: LIDOCAINE 1% W/EPI 1:100,000 MDV 50 ML VIAL ONE (08:30)
[2022-02-02 08:37] LABS: Absolute Lymphocytes (CBC) 1.6 K/uL (0.7-4.9); Hematocrit 40.7 % (39.6-49.0); Lymphocytes % 29.2 % (15.3-44.8); MPV 9.2 fL (7.6-11.3); RBC Red Blood Cell Count 4.35 M/uL (4.33-5.43)
[2022-02-02 08:49] LABS: Potassium 4.4 mmol/L (3.5-5.1)
--- NOTE | 2022-02-02 09:08 | ER ---
Nurse's Notes [facility] Name: Good Pinzon Age: 81 yrs Sex: Male : 1940 Arrival Date: 02/02/2022 Time: 07:53 Bed 6 Private MD: Diagnosis: Facial laceration;Fall on same level from slipping, tripping and stumbling with subsequent striking against object Presentation: 02/02 08:01 Chief complaint: Patient states: "I was coming out of the bathroom and tripped and hit jd3 my head on the bed post. I think I might need stitches, but it doesn't hurt that bad.". Coronavirus screen: At this time, the client does not indicate any symptoms associated with coronavirus-19. Ebola Screen: No symptoms or risks identified at this time. Initial Sepsis Screen: Does the patient meet any 2 criteria? No. Patient's initial sepsis screen is negative. Does the patient have a suspected source of infection? No. Patient's initial sepsis screen is negative. Risk Assessment: Do you want to hurt yourself or someone else? Patient reports no desire to harm self or others. Onset of symptoms was February 02, 2022. 08:01 Method Of Arrival: Ambulatory jd3 08:01 Acuity: ISMAEL 3 jd3 08:03 Care prior to arrival: None. Mechanism of Injury: Fall from standing position. Trauma jd3 event details: Injury occurred in the [facility], Injury occurred: at home. Injury occurred: February 02, 2022 Injury occurred at: 03:00. Trauma Activation: Alert Physician: ED Physician; Name: Quiroz; Notified At: 07:57; Arrived At: 07:57 Physician: General Surgeon; Name: ; Notified At: 07:57; Arrived At: Physician: Radiology; Name: x-ray amd CT techs; Notified At: 07:57; Arrived At: 07:57 Physician: Respiratory; Name: ; Notified At: 07:57; Arrived At: Physician: Lab; Name: ; Notified At: 07:57; Arrived At: Historical: - Allergies: 08:01 Sulfa (Sulfonamide Antibiotics); bp - Home Meds: 08:01 amiodarone 200 mg Oral tab 1 tab 2 times per day [Active]; atorvastatin 20 mg oral tab bp 1 tab once daily [Active]; carbidopa-levodopa 50-200 mg Oral TbER 1 tab 3 times per day [Active]; Eliquis 5 mg oral tab 1 tab 2 times per day [Active]; midodrine 2.5 mg oral tab 1 tab 3 times per day [Active]; omeprazole 40 mg Oral cpDR 1 cap once daily [Active]; Restasis 0.05 % ophthalmic (eye) dpet 1 drop every 12 hours [Active]; tamsulosin 0.4 mg oral cap 1 cap 3 times a week [Active]; - PMHx: 08:01 Atrial fibrillation; Parkinson's disease; bp - Immunization history:: Adult Immunizations up to date, Client reports receiving the 2nd dose of the Covid vaccine, Pneumococcal vaccine is up to date, Flu vaccine is up to date. - Social history:: Smoking status: Patient/guardian denies using tobacco, but has a distant history of tobacco abuse. - Immunization history: Last tetanus immunization:. Screenin:03 Abuse screen: Denies threats or abuse. Nutritional screening: No deficits noted. jd3 Tuberculosis screening: No symptoms or risk factors identified. 08:12 Fall Risk Fall in past 12 months (25 points). Ambulatory Aid- None/Bed Rest/Nurse jd3 Assist (0 pts). Gait- Normal/Bed Rest/Wheelchair (0 pts) Mental Status- Oriented to own ability (0 pts). Total [place] Fall Scale indicates Low Risk Score (25-44 pts). Fall prevention measures have been instituted. Side Rails Up X 2 Placed close to Nursing Station Frequent Obs/Assesments occuring Family Present and informed to notify staff if they need to leave bedside. Primary Survey: 08:03 NO uncontrolled hemorrhage observed. A: The patient is alert. Airway: patent, No jd3 supplemental oxygen in use on arrival. Oral cavity: clear, Trachea midline. Breathing/Chest: Respiratory pattern: regular, Respiratory effort: spontaneous, unlabored, Breath sounds: clear, bilaterally. Chest inspection: symmetrical rise and fall of the chest. Circulation: Heart tones present. Pulses: palpable right radial artery and left radial artery. Skin color: pink, Skin temperature: warm. Disability Alert. Exposure/Environment: All clothing and personal items were removed. Forensic evidence collection is not deemed to be indicated at this time. Items placed in patient belonging bag. There is no evidence of uncontrolled external bleeding. Obvious injury(ies) are noted at this time: small respiration noted to the middle of the pt's forehead on the brow line. A warming method has been applied: A warm blanket has been provided to the patient. 09:00 Reassessment Airway Airway Patent Oxygen No O2 Oral cavity Clear Trachea Midline jd3 Breathing/Chest Respiratory pattern Regular Respiratory effort Spontaneous Unlabored Breath sounds Clear Chest inspection Symmetrical Circulation Heart tones Present Pulses Palpable Color [place] Disability Alert. Secondary Survey: 08:03 HEENT: Head Other small laceration noted to forehead. bleeding controlled at this time. jd3 Gastrointestinal: No deficits noted. : No signs and/or symptoms were reported regarding the genitourinary system. Musculoskeletal: Circulation, motion, and sensation intact. Range of motion: intact in all extremities. Assessment: 08:08 General: Appears in no apparent distress. comfortable, Behavior is calm, cooperative, jd3 appropriate for age. Pain: Complains of pain in head Quality of pain is described as aching, pressure. Neuro: Level of Consciousness is awake, alert, obeys commands, Oriented to person, place, time, situation, Denies LOC. Cardiovascular: Capillary refill < 3 seconds Patient's skin is warm and dry. Respiratory: Airway is patent Respiratory effort is even, unlabored, Respiratory pattern is regular, symmetrical, Denies cough, shortness of breath. GI: No signs and/or symptoms were reported involving the gastrointestinal system. : No signs and/or symptoms were reported regarding the genitourinary system. EENT: No signs and/or symptoms were reported regarding the EENT system. Derm: Skin is intact, Skin is dry, Skin is normal, Skin temperature is warm Wound noted forehead Wound is small laceration, no bleeding noted at this time. Musculoskeletal: Circulation, motion, and sensation intact. Range of motion: intact in all extremities. 09:28 Reassessment: Patient appears in no apparent distress at this time. Patient and/or jd3 family updated on plan of care and expected duration. Pain level reassessed. Patient is alert, oriented x 3, equal unlabored respirations, skin warm/dry/pink. pt reported understanding of discharge instructions. even and steady gait upon discharge Patient states feeling better. Vital Signs: 08:02 BP 127 / 50; Pulse 54; Resp 17 S; Temp 98.1(TE); Pulse Ox 100% on R/A; Weight 96.16 kg jd3 (R); Height 5 ft. 10 in. (177.80 cm) (R); Pain 2/10; 09:00 BP 105 / 50; Pulse 55; Resp 17 S; Pulse Ox 100% on R/A; jd3 08:02 Body Mass Index 30.42 (96.16 kg, 177.80 cm) jd3 [place] Coma Score: 08:03 Eye Response: spontaneous(4). Verbal Response: oriented(5). Motor Response: obeys jd3 commands(6). Total: 15. 09:00 Eye Response: spontaneous(4). Verbal Response: oriented(5). Motor Response: obeys jd3 commands(6). Total: 15. Trauma Score (Adult): 08:03 Eye Response: spontaneous(1); Verbal Response: oriented(1); Motor Response: obeys jd3 commands(2); Systolic BP: > 89 mm Hg(4); Respiratory Rate: 10 to 29 per min(4); [place] Score: 15; Trauma Score: 12 09:00 Eye Response: spontaneous(1); Verbal Response: oriented(1); Motor Response: obeys jd3 commands(2); Systolic BP: > 89 mm Hg(4); Respiratory Rate: 10 to 29 per min(4); [place] Score: 15; Trauma Score: 12 ED Course: 07:53 Patient arrived in ED. rg4 07:53 Bk Quiroz DO is Attending Physician. ms3 07:56 Nino Walters, RAMSES is Primary Nurse. jd3 07:56 Arm band placed on Patient placed in an exam room, on a stretcher. ll1 08:02 Triage completed. jd3 08:03 Patient has correct armband on for positive identification. Bed in low position. Call jd3 light in reach. Side rails up X 1. Adult w/ patient. impregnating machine operator on. Pulse ox on. NIBP on. 08:03 Patient maintains SpO2 saturation greater than 95% on room air. Thermoregulation: warm jd3 blanket given to patient. 08:09 CT Head C Spine In Process Unspecified. EDMS 08:30 Initial lab(s) drawn, by me, sent to lab. T\\T\\S collected, blood band applied to patient. zm Inserted saline lock: 20 gauge in right antecubital area, using aseptic technique. 08:31 Type And Screen Sent. zm 08:31 CBC with Diff Sent. zm 08:32 Basic Metabolic Panel Sent. zm 09:05 Valerie Bray MD is Referral Physician. ms3 09:15 Assist provider with laceration repair on forehead that was between 2.6 to 7.5 cm using jd3 sutures. Set up tray. Performed by Bk Quiroz DO Dressed with Neosporin, Patient tolerated well. IV discontinued, intact, bleeding controlled, No redness/swelling at site. Pressure dressing applied. Administered Medications: 08:56 Drug: Lidocaine-Epinephrine -1%: (1:100,000) 1 vials Volume: 20 ml; Route: Infiltration;jd3 09:32 Follow up: Response: No adverse reaction jd3 09:28 Drug: Bacitracin Ointment (500 unit/g) 1 application Route: Topical; Site: affected jd3 area; 09:32 Follow up: Response: Medication administered at discharge. jd3 Intake: 09:31 PO: 0ml; Total: 0ml. jd3 Output: 09:31 Urine: 100ml (Voided); Total: 100ml. jd3 Outcome: 09:07 Discharge ordered by . ms3 09:31 Discharged to home ambulatory, with family. jd3 09:31 Condition: stable 09:31 Discharge instructions given to patient, family, Instructed on discharge instructions, follow up and referral plans. Demonstrated understanding of instructions, follow-up care. 09:32 Patient's length of stay was not longer than 2 hours. jd3 09:32 Patient left the ED. jd3 Signatures: Dispatcher [employer] EDMD Samantha Parra4 Nino Walters RN RN jd3 Ede Summers RN RN bp Lewis, Lynsay, RN RN ll1 Bk Quiroz DO DO ms3 [employer]: (The following items were deleted from the chart) 08:18 08:03 Pulse ox on. NIBP on. jd3 jd3
--- NOTE | 2022-02-02 09:08 | EDPHYS ---
Physician Documentation [facility] Name: Good Pinzon Age: 81 yrs Sex: Male : 1940 Arrival Date: 02/02/2022 Time: 07:53 Bed 6 Private MD: ED Physician Bk Quiroz HPI: 02/02 08:02 This 81 yrs old Male presents to ER via Unassigned with complaints of Fall Injury, ms3 Laceration To Forehead. 08:02 Details of fall: The patient fell from an upright position, while standing. Onset: The ms3 symptoms/episode began/occurred acutely, 5 hour(s) ago. Associated injuries: The patient sustained injury to the head, laceration, 3 cm(s). 81-year-old male with past medical history of atrial fibrillation, Parkinson's, hypertension presents 5 hours status post tripping walking out of his restroom and striking his head on the bedpost. Patient states his pain is a 1-2 over 10 and aching. Patient denies alleviating or inciting factors. Patient states he is on a blood thinner. Patient denies loss of consciousness, nausea, vomiting, chest pain, shortness of breath, dizziness. Historical: - Allergies: 08:01 Sulfa (Sulfonamide Antibiotics); bp - Home Meds: 08:01 amiodarone 200 mg Oral tab 1 tab 2 times per day [Active]; atorvastatin 20 mg oral tab bp 1 tab once daily [Active]; carbidopa-levodopa 50-200 mg Oral TbER 1 tab 3 times per day [Active]; Eliquis 5 mg oral tab 1 tab 2 times per day [Active]; midodrine 2.5 mg oral tab 1 tab 3 times per day [Active]; omeprazole 40 mg Oral cpDR 1 cap once daily [Active]; Restasis 0.05 % ophthalmic (eye) dpet 1 drop every 12 hours [Active]; tamsulosin 0.4 mg oral cap 1 cap 3 times a week [Active]; - PMHx: 08:01 Atrial fibrillation; Parkinson's disease; bp - Immunization history:: Adult Immunizations up to date, Client reports receiving the 2nd dose of the Covid vaccine, Pneumococcal vaccine is up to date, Flu vaccine is up to date. - Social history:: Smoking status: Patient/guardian denies using tobacco, but has a distant history of tobacco abuse. - Immunization history: Last tetanus immunization:. ROS: 08:02 Constitutional: Negative for fever, and chills. Neck: Negative for injury, pain, and ms3 swelling, Cardiovascular: Negative for chest pain, and palpitations. Respiratory: Negative for shortness of breath, cough, wheezing, and pleuritic chest pain, Abdomen/GI: Negative for abdominal pain, nausea, vomiting, diarrhea, and constipation, MS/Extremity: Negative for injury and deformity, Psych: Negative for depression, anxiety, suicide ideation, homicidal ideation, and hallucinations. 08:02 Skin: Positive for laceration(s). 08:02 All other systems are negative. Exam: 08:02 Constitutional: This is a well developed, well nourished patient who is awake, alert, ms3 and in no acute distress. Eyes: Pupils equal round and reactive to light, extra-ocular motions intact. Lids and lashes normal. Conjunctiva and sclera are non-icteric and not injected. Periorbital areas with no swelling, redness, or edema. Neck: Trachea midline, no cervical lymphadenopathy. Supple, full range of motion without nuchal rigidity, or vertebral point tenderness. No Meningismus. Chest/axilla: Normal chest wall appearance and motion. Nontender with no deformity. Cardiovascular: Regular rate and rhythm with a normal S1 and S2. No gallops, murmurs, or rubs. Normal PMI, no JVD. No pulse deficits. Respiratory: Lungs have equal breath sounds bilaterally, clear to auscultation and percussion. No rales, rhonchi or wheezes noted. No increased work of breathing, no retractions or nasal flaring. Abdomen/GI: Soft, non-tender, with normal bowel sounds. No distension or tympany. No guarding or rebound. No evidence of tenderness throughout. Back: No spinal tenderness. No costovertebral tenderness. Full range of motion. Psych: Awake, alert, with orientation to person, place and time. Behavior, mood, and affect are within normal limits. 08:02 Skin: 3 cm laceration L nasal bridge. Vital Signs: 08:02 BP 127 / 50; Pulse 54; Resp 17 S; Temp 98.1(TE); Pulse Ox 100% on R/A; Weight 96.16 kg jd3 (R); Height 5 ft. 10 in. (177.80 cm) (R); Pain 2/10; 09:00 BP 105 / 50; Pulse 55; Resp 17 S; Pulse Ox 100% on R/A; jd3 08:02 Body Mass Index 30.42 (96.16 kg, 177.80 cm) jd3 [place]y Coma Score: 08:03 Eye Response: spontaneous(4). Verbal Response: oriented(5). Motor Response: obeys jd3 commands(6). Total: 15. 09:00 Eye Response: spontaneous(4). Verbal Response: oriented(5). Motor Response: obeys jd3 commands(6). Total: 15. Trauma Score (Adult): 08:03 Eye Response: spontaneous(1); Verbal Response: oriented(1); Motor Response: obeys jd3 commands(2); Systolic BP: > 89 mm Hg(4); Respiratory Rate: 10 to 29 per min(4); [place] Score: 15; Trauma Score: 12 09:00 Eye Response: spontaneous(1); Verbal Response: oriented(1); Motor Response: obeys jd3 commands(2); Systolic BP: > 89 mm Hg(4); Respiratory Rate: 10 to 29 per min(4); Remy Score: 15; Trauma Score: 12 Laceration: 09:08 Wound Repair of 3cm ( 1.2in ) subcutaneous laceration to face and forehead. Distal ms3 neuro/vascular/tendon intact. Anesthesia: Wound infiltrated with 3 mls of 1% lidocaine w/ Epi. Skin closed with 4 6-0 Prolene using simple sutures and sterile technique. Dressed with Bacitracin. Patient tolerated well. MDM: 08:02 Patient medically screened. ms3 08:02 Differential diagnosis: closed head injury, laceration, SDH. ms3 09:08 Data reviewed: vital signs, nurses notes. Data interpreted: Pulse oximetry: on room air ms3 is 100 %. Interpretation: normal. Counseling: I had a detailed discussion with the patient and/or guardian regarding: the historical points, exam findings, and any diagnostic results supporting the discharge/admit diagnosis, lab results, radiology results, the need for outpatient follow up, to return to the emergency department if symptoms worsen or persist or if there are any questions or concerns that arise at home. ED course: Discussed with patient necessity for suture removal in [address] Bray's office. Patient and his understand and agree with plan. All questions were answered. Return precautions discussed include worsening symptoms, or any other concerns. On reevaluation patient's wound is hemostatic, she is alert and oriented x4, no apparent distress, nontoxic, ambulatory in the emergency department. 09:11 ED course: Patient states his tetanus vaccination is up to date.. ms3 02/02 08:02 Order name: Basic Metabolic Panel; Complete Time: 09:12 ms3 02/02 08:02 Order name: CBC with Diff; Complete Time: 08:47 ms3 02/02 08:02 Order name: Type And Screen; Complete Time: 09:12 ms3 02/02 08:02 Order name: CT Head C Spine; Complete Time: 08:47 ms3 02/02 08:02 Order name: Labs collected and sent; Complete Time: 08:31 ms3 Administered Medications: 08:56 Drug: Lidocaine-Epinephrine -1%: (1:100,000) 1 vials Volume: 20 ml; Route: Infiltration;jd3 09:32 Follow up: Response: No adverse reaction jd3 09:28 Drug: Bacitracin Ointment (500 unit/g) 1 application Route: Topical; Site: affected jd3 area; 09:32 Follow up: Response: Medication administered at discharge. jd3 Disposition Summary: 02/02/22 09:07 Discharge Ordered Location: Home ms3 Problem: new ms3 Symptoms: have improved ms3 Condition: Stable ms3 Diagnosis - Facial laceration ms3 - Fall on same level from slipping, tripping and stumbling with subsequent striking ms3 against object Followup: ms3 - With: Valerie Bray MD - When: 1 week - Reason: Staple/Suture removal Discharge Instructions: - Discharge Summary Sheet ms3 - Facial Laceration, [id number] ms3 Forms: - Medication Reconciliation Form ms3 - Thank You Letter ms3 - Antibiotic Education ms3 - Prescription Opioid Use ms3 Signatures: Dispatcher [employer] Nino Lopez RN RN jd3 Ede Summers RN RN Bk Vazquez, DO ms3
[2022-02-02 09:38] VITALS: TEMP 98.1; O2SAT 100
[2022-02-02 09:40] VITALS: BP 105/50
== END 2022-02-02 09:32 | disposition home or self-care (01) ==
LOC: ER 07:50
PROC: 0JQ10ZZ Repair Face Subcutaneous Tissue and Fascia, Open Approach (ICD-10-PCS; principal; 2022-02-02)
DX: S01.81XA Laceration without foreign body of other part of head, initial encounter (principal); W01.198A Fall on same level from slipping, tripping and stumbling with subsequent striking against other object, initial encounter; G20 Parkinson's disease; I48.91 Unspecified atrial fibrillation; Z79.01 Long term (current) use of anticoagulants; Z88.2 Allergy status to sulfonamides
CPT/HCPCS: 36415; 70450; 72125; 80048; 85025; 86850; 86900; 86901; 99285

== ENCOUNTER 2023-03-23 04:32 | Inpatient (IN) | payer OTHER ==
--- OUTSIDE RECORDS SUMMARY | 2023-03-23 04:36 | XMS REPORT | Continuity of Care Document ---
:1940 Author Organization [facility] t Address [address] [place] [address] Care Team Providers Name Role Phone Arun Aguiar MD N.SDelvis Primary Care Physician [phone] Arun Aguiar MD.SDelvis Attending Clinician [phone] Herbie Covington MD Attending Clinician [phone] Fernando Graves Attending Clinician Unavailable MD ARUN AGUIAR Attending Clinician Unavailable ARUN AGUIAR Admitting Clinician Unavailable MD ARUN AGUIAR Admitting Clinician Unavailable Payers Payer Name Policy [...] Stop Date Quantity Comments Source History [facility] Frequency Hospita l History SDOH [facility] Alcohol Std Drinks Hospit al History [facility] B[facility] Gender identity [facility] Sexual orientation [facility] Alcohol intake 2021-02-01 2021-02-01 Current drinker [facility] 00:00:00 00:00:00 of alcohol Hospital (finding) History of Social 2021-02-01 2021-02-[address] function 00:00:00 00:00:00 Hospital Tobacco use and 2021-01-28 2021-01-28 Smokeless [facility] exposure 00:00:00 00:00:00 tobacco non-user Hospital Alcohol Comment 2021-01-28 2021-01-28 2 glasses/week [facility] 00:00:00 00:00:00 Hospital History of tobacco 1965-12-02 Smoker [facility] use 00:00:00 Hospital Sex Assigned At [birth year] [facility] 00:00:00 00:00:00 Hospital Smoking Status Start Date Stop Date Source Ex-smoker 2021-01-28 00:00:00 2021-01-28 00:00:00 [facility] Medications Ordered Filled Start Stop Current Ordering Indication Dosage Frequency Signature Comments Components Source Medication Medication Date Date Medication? Clinician (SIG) Name Name cholecalcif Yes 1000U Take 1,000 [facility] denys, 3-[address] vitamin D3, 03:03: mouth. Hosp gretel 1,000 unit 21 l tablet multivitami 0 Yes 1{tbl} Take 1 Me thodi n,tx-iron-m 3-[address] inerals 03:03: mouth. Hospita tablet 21 l aspirin 81 2020-0 Yes 81mg Chew 81 Meth adonis mg chewable 3-[address] tablet 03:03: Hospita 21 l glucosamine 2020-0 Yes 1{tbl} Take 1 Me thodi sulfate 500 3-[address] mg tablet 03:03: mouth. Hospit a 21 l cholecalcif 0 Yes 1000U Take 1,000 [facility] denys, 3-[address] vitamin D3, 03:03: mouth. Hosp gretel 1,000 unit 21 l tablet multivitami 0 Yes 1{tbl} Take 1 Me thodi n,tx-iron-m 3-[address] inerals 03:03: mouth. Hospita tablet 21 l aspirin 81 2020-0 Yes 81mg Chew 81 Meth adonis mg chewable 3-[address] tablet 03:03: Hospita 21 l glucosamine 2020-0 Yes 1{tbl} Take 1 Me thodi sulfate 500 3-[address] mg tablet 03:03: mouth. Hospit a 21 l traMADoL 2020-0 Yes [facility] (ULTRAM) 50 3-24 st mg tablet 00:00: Hospita 00 l cephalexin 2020-0 Yes [facility] (KEFLEX) 3-24 st 500 MG 00:00: Hospita capsule 00 l traMADoL 2020-0 Yes [facility] (ULTRAM) 50 3-24 st mg tablet 00:00: Hospita 00 l cephalexin 2020-0 Yes [facility] (KEFLEX) 3-24 st 500 MG 00:00: Hospita capsule 00 l carbidopa-l 2020-0 Yes 1{tbl} Q.[id number] Take 1 [facility] evodopa 3-10 [id number] tablet by s t (SINEMET) 00:00: 3D mouth 3 Hospi ta 25-100 mg 00 (three) l per tablet times a day. carbidopa-l 2020-0 Yes 1{tbl} Q.[id number] Take 1 [facility] evodopa 3-10 [id number] tablet by s t (SINEMET) 00:00: 3D mouth 3 Hospi ta 25-100 mg 00 (three) l per tablet times a day. promethazin 2020-0 Yes TAKE 1 Meth adonis e 3-[address] (PHENERGAN) 00:00: MOUTH 4 6 H ospita 25 MG 00 HOURS l tablet NEEDED FOR NAUSEA promethazin 2020-0 Yes Method i e 3-03 st (PHENERGAN) 00:00: Hospit a 25 MG 00 l tablet montelukast 2020-0 Yes 10mg QD Take 10 mg [facility] (SINGULAIR) 1-[address] 10 mg 00:00: every Hospita tablet 00 morning. l montelukast 2020-0 Yes 10mg QD Take 10 mg [facility] (SINGULAIR) 1-[address] 10 mg 00:00: every Hospita tablet 00 morning. l omeprazole 2020-0 Yes 40mg QD Take 40 mg M ethodi (PriLOSEC) 1-[address] 40 MG 00:00: daily. Hospita capsule 00 l omeprazole 2020-0 Yes 40mg QD Take 40 mg M ethodi (PriLOSEC) 1-[address] 40 MG 00:00: daily. Hospita capsule 00 l finasteride 2020-0 Yes 5mg QD Take 5 mg M ethodi (PROSCAR) 5 1-[address] mg tablet 00:00: daily. Hospit a 00 l finasteride 2020-0 Yes 5mg QD Take 5 mg M ethodi (PROSCAR) 5 1-[address] mg tablet 00:00: daily. Hospit a 00 l Vital Signs Vital Name Observation Time Observation Value Comments Source Systolic blood 2021-01-29 15:01:00 140 mm[Hg] [facility] pressure Diastolic blood 2021-01-29 15:01:00 63 mm[Hg] [facility] pressure Heart rate 2021-01-29 15:01:00 64 /min [facility] Body temperature 2021-01-29 15:01:00 36.56 [facility] Respiratory rate 2021-01-29 15:01:00 15 /min [facility] Oxygen saturation in 2021-01-29 15:01:00 100 /min [facility] Arterial blood by Pulse oximetry Body height 2021-01-29 12:40:00 177.8 cm [facility] Body weight 2021-01-29 12:40:00 109.799 kg [facility] BMI 2021-01-29 12:40:00 34.73 kg/m2 [facility] Procedures Procedure Date / Time Performed Performing Clinician Sourc e RECONSTRUCTION, EYELID 2021-01-29 13:32:00 [facility] COVID-19 QUALITATIVE 2021-01-26 15:20:00 [facility]Arun holt [facility] RT-PCR COVID-19 QUALITATIVE 2021-01-04 18:35:00 [facility]Arun holt [facility] RT-PCR COVID-19 QUALITATIVE 2020-12-14 16:15:00 [facility]Arun holt [facility] RT-PCR Plan of Care Planned Activity Planned Date Details Comments Source Future Scheduled 2023-02-06 COVID-19 VACCINE (#1) [facility] Test 03:46:08 [code = COVID-19 VACCINE (#1)] Future Scheduled 2023-02-06 SHINGLES VACCINES (1 Met [facility] Test 03:46:08 of 2) [code = SHINGLES VACCINES (1 of 2)] Future Scheduled 2023-02-06 65+ PNEUMOCOCCAL [facility] Test 03:46:08 VACCINE (1 - PCV) [code = 65+ PNEUMOCOCCAL VACCINE (1 - PCV)] Future Scheduled 2023-02-06 INFLUENZA VACCINE Method [facility] Hospital Test 03:46:08 [code = INFLUENZA VACCINE] Future Scheduled 2021-12-07 COVID-19 VACCINE (1) Met [facility] Hospital Test 19:38:07 [code = COVID-19 VACCINE (1)] Future Scheduled 2021-12-07 SHINGLES VACCINES (#1) M [facility] Test 19:38:07 [code = SHINGLES VACCINES (#1)] Future Scheduled 2021-12-07 65+ PNEUMOCOCCAL Methodi [facility] Test 19:38:07 VACCINE (1 of 1 - PPSV23) [code = 65+ PNEUMOCOCCAL VACCINE (1 of 1 - PPSV23)] Future Scheduled 2021-12-07 INFLUENZA VACCINE Method [facility] Hospital Test 19:38:07 [code = INFLUENZA VACCINE] Encounters Start End Encounter Admission Attending Care Care Encounter Source Date/Time Date/Time Type Type Clinicians Facility Department ID 2021-01-29 2021-01-29 [facility], 1.2.840.1 [id number] Methodi 05:46:00 23:59:00 Encounter Arun 11159.1.[address] 3.430.2.7 Hospit a .3.147604 l .8 2021-01-29 2021-01-29 Anesthesia Herbie Covington 1.2.840 .1 [id number] Methodi 08:32:00 09:33:00 Event Fernando Graves 33260.1.[address] 3.430.2.7 Hospit a .3.033764 l .8 2021-01-29 2021-01-29 Surgery [facility] 1.2.840.1 [id number] Methodi 07:30:00 08:15:[address] 3.430.2.7 Hospit a .3.733119 l .8 2021-01-29 2021-01-29 Travel 1.2.840.1 1.2.806.841 [id number] Methodi 00:00:00 00:00:[address] 3.430.2.7 0.2.7.3.698 Ho spita .3.264480 084.8 l .8 2021-01-26 2021-01-26 Lab Soparkyanet, 1.2.840.1 [id number] Methodi 10:11:57 10:16:[address] 3.430.2.7 Hospit a .3.513862 l .8 2021-01-26 2021-01-26 Travel 1.2.840.1 1.2.325.742 [id number] Methodi 00:00:00 00:00:[address] 3.430.2.7 0.2.7.3.698 Ho spita .3.605992 084.8 l .8 2021-01-04 2021-01-04 Lab Cosme, 1.2.840.1 [id number] Methodi 12:32:25 12:37:[address] 3.430.2.7 Hospit a .3.198071 l .8 2021-01-04 2021-01-04 Travel 1.2.840.1 1.2.128.887 [id number] Methodi 00:00:00 00:00:[address] 3.430.2.7 0.2.7.3.698 Ho spita .3.797159 084.8 l .8 2020-12-14 2020-12-14 Lab Soparkar, 1.2.840.1 [id number] Methodi 10:04:59 10:19:[address] 3.430.2.7 Hospit a .3.217937 l .8 2020-12-14 2020-12-14 Travel 1.2.840.1 1.2.049.057 [id number] Methodi 00:00:00 00:00:[address] 3.430.2.7 0.2.7.3.698 Ho spita .3.250392 084.8 l .8 Results Test Description Test Time Test Comments Results Result Comments Source COVID-19 qualitative PCR 2021-01-27 00:21:42 Test Item Value Reference Range Interpretation Comme nts Interpretation (test code = Negative results do not [id number]) preclude 2019-nCoV infection and should not be used as the sole basis for treatment or other patient management decisions. Negative results must be combined with clinical observations, patient history, and epidemiological information. COVID-19 qualitative RT-PCR Not-Detected Not-Detected result (test code = 50671-1) COVID-19 qualitative RT-PCR See link below for PDF Lab Case Number: (test code = 7070) Report [id number] [facility] AehgsftyOEHS-UsP-4 (COVID-19) RNA [Presence] in Respiratory specimen by DONNA with probe [id number] 19:21:11 Test Item Value Reference Range Interpretation Comments SARS-CoV-2 (COVID-19) RNA Not detected Not-Detected [Presence] in Respiratory specimen by DONNA with probe detection (test code = 40237-5) PENG ERICKSONSARS-CoV-2 (COVID-19) RNA [Presence] in Respiratory specimen by DONNA with probe [id number] 19:59:22 Test Item Value Reference Range Interpretation Comments SARS-CoV-2 (COVID-19) RNA Not detected Not-Detected [Presence] in Respiratory specimen by DONNA with probe detection (test code = 33465-1) PENG HARDYRS-CoV-2 (COVID-19) RNA [Presence] in Respiratory specimen by DONNA with probe [id number] 20:41:07 Test Item Value Reference Range Interpretation Comments SARS-CoV-2 (COVID-19) RNA [Presence] Detected Not-Detected in Respiratory specimen by DONNA with probe detection (test code = 86893-6) PENG ERICKSON
[2023-03-23] MEDS ORDERED: MORPHINE 4 MG/ML SYR ONE (04:57)
[2023-03-23] MEDS ORDERED: ONDANSETRON 4 MG/2 ML VIAL ONE (04:57)
[2023-03-23 05:09] LABS: Absolute Lymphocytes (CBC) 1.5 K/uL (0.7-4.9); Hematocrit 36.9 % (39.6-49.0); Lymphocytes % 21.1 % (15.3-44.8); MCV 93.4 fL (80-100); MPV 8.9 fL (7.6-11.3); RBC Red Blood Cell Count 3.95 M/uL (4.33-5.43)
[2023-03-23 06:17] LABS: Albumin 3.7 g/dL (3.4-5.0); Bilirubin Total 0.6 mg/dL (0.2-1.0); Potassium 4.3 mEq/L (3.5-5.1); Protein, Total 7.6 g/dL (6.4-8.2); Troponin High Sensitivity 8.4 pg/mL (<58.9)
[2023-03-23] MEDS ORDERED: NA CHLORIDE 0.9% 100 ML ONE (08:04)
[2023-03-23] MEDS ORDERED: PIPERACIL/TAZO 3.375 GM VIAL IV ONE (08:05)
--- NOTE | 2023-03-23 08:12 | RAD REPORT ---
EXAM DESCRIPTION: CT - Abdomen Pelvis W Contrast - 03/23/2023 7:49 am CLINICAL HISTORY: Abdominal pain COMPARISON: 2014 TECHNIQUE: Computed axial tomography of the abdomen pelvis was obtained. 100 cc Isovue-300 was admin istered intravenously. Oral contrast was given All CT scans are performed using dose optimization technique as appropriate and may include automated exposure control or mA/KV adjustment according to patient size. FINDINGS: Small gallstones. Gallbladder wall not thickened. The liver, spleen, pancreas and adrenals are unremarkable Bilateral renal cysts. Abnormal appendix is not visualized. Prostate gland is moderately enlarged. No evidence of diverticulitis. Small umbilical hernia Spondylosis lumbar spine Small left inguinal hernia contains fat IMPRESSION: Cholelithiasis without evidence of cholecystitis
[2023-03-23 08:13] LABS: Specific Gravity 1.016 (1.005-1.030); Urine Bilirubin NEGATIVE (Negative); Urine Blood Negative (Negative); Urine Clarity Clear (Clear); Urine Color Light-Yellow (Yellow); Urine Glucose NEGATIVE (Negative); Urine Protein NEGATIVE (Negative); Urine Urobilinogen Normal (Normal); Urine pH 6.5 (5.0-7.0)
--- NOTE | 2023-03-23 08:20 | ER ---
Nurse's Notes [facility] Name: Good Pinzon Age: 82 yrs Sex: Male : 1940 Arrival Date: 03/23/2023 Time: 04:32 Bed 6 Private MD: Diagnosis: Other cholelithiasis without obstruction Presentation: 03/23 04:37 Chief complaint: EMS states: He called EMS because he started to have epigastric pain kd3 that suddenly started around 0000 last night. The pain radiates to the right side and into the back. Pt tried to go to sleep and let it pass but when it wasn't going away he called EMS. Pt started to get nausea prior to EMS arrival. Pt was given 4 of Zofran in route. Coronavirus screen: Vaccine status:. Ebola Screen: No symptoms or risks identified at this time. Initial Sepsis Screen: Does the patient meet any 2 criteria? No. Patient's initial sepsis screen is negative. Does the patient have a suspected source of infection? No. Patient's initial sepsis screen is negative. Risk Assessment: Do you want to hurt yourself or someone else? Patient reports no desire to harm self or others. Onset of symptoms was March 23, 2023. 04:37 Method Of Arrival: EMS: [facility] kd3 04:37 Acuity: ISMAEL 3 kd3 Triage Assessment: 04:44 General: Appears uncomfortable, Behavior is calm, cooperative. Pain: Complains of pain kd3 in epigastric area Pain radiates to right upper quadrant. Neuro: Level of Consciousness is awake, alert, obeys commands, Oriented to person, place, time, situation. Cardiovascular: Patient's skin is warm and dry. Respiratory: Airway is patent Trachea midline Respiratory effort is even, unlabored. GI: Abdomen is tender to palpation in epigastric area. Historical: - Allergies: 04:41 Sulfa (Sulfonamide Antibiotics); kd3 - Home Meds: 04:41 amiodarone 200 mg Oral tab 1 tab 2 times per day [Active]; atorvastatin 20 mg Oral tab kd3 1 tab once daily [Active]; carbidopa-levodopa 50-200 mg Oral TbER 1 tab 3 times per day [Active]; Eliquis 5 mg Oral tab 1 tab 2 times per day [Active]; midodrine 2.5 mg Oral tab 1 tab 3 times per day [Active]; tamsulosin 0.4 mg Oral cap 1 cap 3 times a week [Active]; Restasis 0.05 % ophthalmic (eye) dpet 1 drop every 12 hours [Active]; famotidine 40 mg Oral tablet every day at bedtime [Active]; ropinirole 1 mg oral tablet 1 tab 3 times per day [Active]; - PMHx: 04:41 Atrial fibrillation; Parkinson's disease; Hypertensive disorder; kd3 - Immunization history:: Adult Immunizations up to date. - Social history:: Smoking status: Patient/guardian denies using tobacco, but has a distant history of tobacco abuse. Screenin:46 [facility] ED Fall Risk Assessment (Adult) History of falling in the last 3 months, kd3 including since admission No falls in past 3 months (0 pts) Confusion or Disorientation No (0 pts) Intoxicated or Sedated No (0 pts) Impaired Gait No (0 pts) Mobility Assist Device Used No (0 pt) Altered Elimination No (0 pt) Score/Fall Risk Level 0 - 2 = Low Risk Maintained a safe environment. Abuse screen: Denies threats or abuse. Denies injuries from another. Nutritional screening: No deficits noted. Tuberculosis screening: No symptoms or risk factors identified. Assessment: 04:46 GI: Bowel sounds present X 4 quads. kd3 07:00 Reassessment: RECD REPORT FROM MAUDE PEARCE. 82YO WM P/W ABD PAIN. DISPO PENDING. bp 08:00 Reassessment: PT RETURNED FROM CT. SEEN BY PCP. bp 08:47 Reassessment: Patient appears in no apparent distress at this time. Patient and/or ph family updated on plan of care and expected duration. Pain level reassessed. Patient is alert, oriented x 3, equal unlabored respirations, skin warm/dry/pink. Dr Henry at bedside to speak w/ pt, sx planned for in the morning, clear liquid diet, NPO after midnight. 09:56 Reassessment: Patient appears in no apparent distress at this time. Patient is alert, bp oriented x 3, equal unlabored respirations, skin warm/dry/pink. 12:00 Reassessment: ADMIT IN PROCESS. bp 13:26 Reassessment: ADMIT COMPLETE. bp Vital Signs: 04:37 BP 178 / 63; Pulse 58; Resp 19; Temp 97.6(O); Pulse Ox 100% ; Weight 104.33 kg; Height kd3 5 ft. 10 in. ; 05:02 Pulse 44; Resp 19; Pulse Ox 99% on R/A; kd3 05:10 BP 168 / 68; Pulse 44; Resp 21; Pulse Ox 97% on R/A; kd3 07:00 BP 139 / 64; Pulse 46; Resp 15; Pulse Ox 98% ; bp 08:00 BP 157 / 61; Pulse 63; Resp 25; Pulse Ox 99% ; bp 09:56 BP 138 / 66; Pulse 46; Resp 16; Pulse Ox 98% ; bp 12:00 BP 161 / 79; Pulse 43; Resp 15; Pulse Ox 96% ; bp 13:25 BP 152 / 94; Pulse 48; Resp 15; Pulse Ox 97% ; bp 04:37 Body Mass Index 33.00 (104.33 kg, 177.8 cm) kd3 ED Course: 04:36 Patient arrived in ED. kd3 04:37 Wil Pillai MD is Attending Physician. sp3 04:41 Triage completed. kd3 04:44 Arm band placed on right wrist. kd3 04:46 Olive Sanchez, RAMSES is Primary Nurse. kd3 04:46 Patient has correct armband on for positive identification. Call light in reach. Side kd3 rails up X2. 05:00 Lactate w/ 2H reflex if indic. Sent. kd3 05:00 CBC with Diff Sent. kd3 05:01 CMP Sent. kd3 05:01 Lipase Sent. kd3 05:02 Troponin HS Sent. kd3 05:21 Abdomen Limited US In Process Unspecified. EDMS 05:48 Lab(s) recollected, by me, sent to lab. wm 07:08 Attending Physician role handed off by Wil Pillai MD rt 07:08 Micheal Weir MD is Attending Physician. rt 07:10 Primary Nurse role handed off by Olive Sanchez, RAMSES bp 07:10 Ede Summers, RAMSES is Primary Nurse. bp 07:51 CT Abd/Pelvis - PO and IV Contrast In Process Unspecified. EDMS 08:18 Srikanth Bray MD is Hospitalizing Provider. rt 13:26 No provider procedures requiring assistance completed. Patient admitted, IV remains in bp place. Administered Medications: 05:01 Drug: Ondansetron IVP 4 mg Route: IVP; Site: right forearm; kd3 05:02 Drug: morphine IVP or IV 4 mg Route: IVP; Infused Over: 4 mins; Site: right forearm; kd3 07:30 Drug: Piperacillin-Tazobactam IVPB 3.375 grams Route: IVPB; Infused Over: 60 mins; bp Site: right forearm; 13:26 Follow up: IV Status: Completed infusion; IV Intake: 100ml bp Medication: 04:46 VIS not applicable for this client. kd3 Intake: 13:26 IV: 100ml; Total: 100ml. bp Outcome: 08:19 Decision to Hospitalize by Provider. rt 13:24 Admitted to Med/surg accompanied by tech, via wheelchair, room 402, with chart, Report bp called to SALMA PEARCE 13:24 Condition: stable 13:24 Instructed on the need for admit. 14:33 Patient left the ED. ph Signatures: Dispatcher [employer] EDTiff Reina RN RN Ede Summers RN RN Zahraa Wilde Setul, MD MD sp3 Olive Sanchez RN RN kd3 Micheal Weir MD MD rt
--- NOTE | 2023-03-23 08:20 | EDPHYS ---
Physician Documentation [facility] Name: Good Pinzon Age: 82 yrs Sex: Male : 1940 Arrival Date: 03/23/2023 Time: 04:32 Bed 6 Private MD: ED Physician Micheal Weir HPI: 03/23 04:50 This 82 yrs old Male presents to ER via EMS with complaints of Abdominal Pain. 3 04:50 82-year-old male with history of Parkinson's, hypertension, prior A-fib now presents to [facility] the ED with chief complaint of right upper quadrant abdominal pain since midnight. Patient still has his gallbladder and has had no other abdominal surgeries as reported. He denies headache, fever, vomiting, diarrhea, lower abdominal pain, back pain, prior kidney stone, fever, URI symptoms, travel history, potential bad food, known sick contacts, or any other signs or symptoms on ROS at this time.. Historical: - Allergies: 04:41 Sulfa (Sulfonamide Antibiotics); kd3 - Home Meds: 04:41 amiodarone 200 mg Oral tab 1 tab 2 times per day [Active]; atorvastatin 20 mg Oral tab kd3 1 tab once daily [Active]; carbidopa-levodopa 50-200 mg Oral TbER 1 tab 3 times per day [Active]; Eliquis 5 mg Oral tab 1 tab 2 times per day [Active]; midodrine 2.5 mg Oral tab 1 tab 3 times per day [Active]; tamsulosin 0.4 mg Oral cap 1 cap 3 times a week [Active]; Restasis 0.05 % ophthalmic (eye) dpet 1 drop every 12 hours [Active]; famotidine 40 mg Oral tablet every day at bedtime [Active]; ropinirole 1 mg oral tablet 1 tab 3 times per day [Active]; - PMHx: 04:41 Atrial fibrillation; Parkinson's disease; Hypertensive disorder; kd3 - Immunization history:: Adult Immunizations up to date. - Social history:: Smoking status: Patient/guardian denies using tobacco, but has a distant history of tobacco abuse. ROS: 04:51 Constitutional: Negative for fever, chills, and weight loss, Eyes: Negative for injury, sp3 pain, redness, and discharge, ENT: Negative for injury, pain, and discharge, Neck: Negative for injury, pain, and swelling, Cardiovascular: Negative for chest pain, palpitations, and edema, Respiratory: Negative for shortness of breath, cough, wheezing, and pleuritic chest pain, Back: Negative for injury and pain, MS/Extremity: Negative for injury and deformity, Skin: Negative for injury, rash, and discoloration, Neuro: Negative for headache, weakness, numbness, tingling, and seizure, Psych: Negative for depression, anxiety, suicide ideation, homicidal ideation, and hallucinations, Allergy/Immunology: Negative for hives, rash, and allergies, Endocrine: Negative for neck swelling, polydipsia, polyuria, polyphagia, and marked weight changes, Hematologic/Lymphatic: Negative for swollen nodes, abnormal bleeding, and unusual bruising. 04:51 All other systems are negative. Exam: 04:52 Constitutional: This is a well developed, well nourished patient who is awake, alert, sp3 and in no acute distress. Head/Face: Normocephalic, atraumatic. Eyes: Pupils equal round and reactive to light, extra-ocular motions intact. Lids and lashes normal. Conjunctiva and sclera are non-icteric and not injected. Cornea within normal limits. Periorbital areas with no swelling, redness, or edema. Neck: Trachea midline, no thyromegaly or masses palpated, and no cervical lymphadenopathy. Supple, full range of motion without nuchal rigidity, or vertebral point tenderness. No Meningismus. Chest/axilla: Normal chest wall appearance and motion. Nontender with no deformity. No lesions are appreciated. Cardiovascular: Regular rate and rhythm with a normal S1 and S2. No gallops, murmurs, or rubs. Normal PMI, no JVD. No pulse deficits. Respiratory: Lungs have equal breath sounds bilaterally, clear to auscultation and percussion. No rales, rhonchi or wheezes noted. No increased work of breathing, no retractions or nasal flaring. Back: No spinal tenderness. No costovertebral tenderness. Full range of motion. Skin: Warm, dry with normal turgor. Normal color with no rashes, no lesions, and no evidence of cellulitis. MS/ Extremity: Pulses equal, no cyanosis. Neurovascular intact. Full, normal range of motion. Neuro: Awake and alert, GCS 15, oriented to person, place, time, and situation. Cranial nerves II-XII grossly intact. Motor strength 5/5 in all extremities. Sensory grossly intact. Cerebellar exam normal. Normal gait. 04:52 Abdomen/GI: Pain to palpation right upper quadrant without peritoneal signs, rebound or guarding.. Vital Signs: 04:37 BP 178 / 63; Pulse 58; Resp 19; Temp 97.6(O); Pulse Ox 100% ; Weight 104.33 kg; Height kd3 5 ft. 10 in. ; 05:02 Pulse 44; Resp 19; Pulse Ox 99% on R/A; kd3 05:10 BP 168 / 68; Pulse 44; Resp 21; Pulse Ox 97% on R/A; kd3 07:00 BP 139 / 64; Pulse 46; Resp 15; Pulse Ox 98% ; bp 08:00 BP 157 / 61; Pulse 63; Resp 25; Pulse Ox 99% ; bp 09:56 BP 138 / 66; Pulse 46; Resp 16; Pulse Ox 98% ; bp 12:00 BP 161 / 79; Pulse 43; Resp 15; Pulse Ox 96% ; bp 13:25 BP 152 / 94; Pulse 48; Resp 15; Pulse Ox 97% ; bp 04:37 Body Mass Index 33.00 (104.33 kg, 177.8 cm) kd3 MDM: 04:44 Patient medically screened. sp3 04:52 Data reviewed: vital signs, nurses notes, EMS record, lab test result(s), EKG, sp3 radiologic studies. ED course: 82-year-old male with right upper quadrant abdominal pain. Differential diagnosis includes cholecystitis, cholelithiasis, biliary pathology, pancreatitis, acute coronary syndrome, AAA, among others. I am not highly suspicious for pulmonary embolism, mesenteric ischemia, sepsis, shock, kidney stone, or any other critical or concerning findings at this time. We will obtain laboratory values, urinalysis, CT scan of the abdomen pelvis, right upper quadrant ultrasound and general pain support and supportive care. Patient's PCP is Dr. Bray who will be consulted if indicated depending on patient's course. We will remain n.p.o. for now. Disposition pending work-up and patient course.. 06:40 ED course: All laboratory values are within normal limits including LFTs. Gallbladder sp3 ultrasound demonstrates gallstones without any pericholecystic fluid, common bile duct dilatation, gallbladder wall thickening or any other concerning findings.. 09:04 ED course: Discussed with Dr. Bray who discussed the case with general surgery, request rt the patient be given Zosyn, be admitted for further care.. 03/23 04:45 Order name: CBC with Diff; Complete Time: 06:40 sp3 03/23 04:45 Order name: CMP; Complete Time: 06:40 sp3 03/23 04:45 Order name: Lipase; Complete Time: 06:40 sp3 03/23 04:45 Order name: Urinalysis w/ reflexes; Complete Time: 08:13 sp3 03/23 04:45 Order name: Troponin HS; Complete Time: 06:40 sp3 03/23 04:45 Order name: Lactate w/ 2H reflex if indic.; Complete Time: 06:40 sp3 03/23 04:45 Order name: Abdomen Limited US sp3 03/23 04:45 Order name: CT Abd/Pelvis - PO and IV Contrast; Complete Time: 08:13 sp3 03/23 08:06 Order name: EKG Electrocardiogram [facility] 03/23 08:24 Order name: CONS Physician Consult [facility] 03/23 04:45 Order name: IV Saline Lock; Complete Time: 05:00 sp3 03/23 04:45 Order name: Labs collected and sent; Complete Time: 05:00 sp3 03/23 04:45 Order name: EKG - Nurse/Tech; Complete Time: 04:59 sp3 03/23 04:45 Order name: NPO; Complete Time: 05:00 sp3 Administered Medications: 05:01 Drug: Ondansetron IVP 4 mg Route: IVP; Site: right forearm; kd3 05:02 Drug: morphine IVP or IV 4 mg Route: IVP; Infused Over: 4 mins; Site: right forearm; kd3 07:30 Drug: Piperacillin-Tazobactam IVPB 3.375 grams Route: IVPB; Infused Over: 60 mins; bp Site: right forearm; 13:26 Follow up: IV Status: Completed infusion; IV Intake: 100ml bp Disposition Summary: 03/23/23 08:19 Hospitalization Ordered Hospitalization Status: Observation rt Provider: Srikanth Bray rt Condition: Stable rt Problem: new rt Symptoms: are unchanged rt Bed/Room Type: Standard rt Location: Telemetry/MedSurg (observation)(03/23/23 12:40) dw Room Assignment: 402(03/23/23 13:35) dw Diagnosis - Other cholelithiasis without obstruction rt Forms: - Medication Reconciliation Form rt - SBAR form rt Signatures: Dispatcher [employer] Shea Avendano RN RN dw Ede Summers RN RN bp Wil Pillai MD MD sp3 Olive Sanchez RN RN kd3 Micheal Weir MD MD rt Corrections: (The following items were deleted from the chart) 10:49 08:19 Telemetry/MedSurg (observation) rt bp 10:49 08:19 rt bp 12:40 10:49 [facility] ER HOLD bp dw 12:40 10:49 ERHOLD- bp dw 13:35 12:40 406 dw dw
--- NOTE | 2023-03-23 11:20 | EKG ---
Test Date: 2023-03-23 Test Time: 04:55:10 Director Telehealth: SAMIRA MEASUREMENT RESULTS: Intervals: Rate: 56 NM: 230 QRSD: 104 QT: 504 QTc: 486 [place]: P: 21 NM: 230 QRS: -61 T: 31 INTERPRETIVE STATEMENTS: Sinus bradycardia with 1st degree AV block Left axis deviation Nonspecific ST and T wave abnormality Prolonged QT Abnormal ECG Compared to ECG 12/23/2021 06:44:03 First degree AV block now present ST (T wave) deviation now present Prolonged QT interval now present Sinus rhythm no longer present Sinus arrhythmia no longer present Myocardial infarct finding no longer present Electronically Signed On 03-23-23 11:19:55 CDT by Zaire Zapien
--- NOTE | 2023-03-23 11:25 | RAD REPORT ---
EXAM DESCRIPTION: US - Abdomen Exam Limited - 03/23/2023 5:20 am Abdomen Exam Limited CLINICAL HISTORY: 82 years Male ABD PAIN TECHNIQUE: Transabdominal scans of the right upper quadrant of the abdomen with grayscale imaging an d Doppler. COMPARISON: None FINDINGS: Liver: Heterogeneous echogenicity can be seen with fatty infiltration. The main portal v ein is patent, with normal direction of blood flow. Gallbladder: There are gallstones in the gallbladder lumen. Gallbladder wall measures 2.5 mm in thi ckness. Intrahepatic bile ducts: Normal caliber . Extrahepatic bile ducts: Normal caliber. Pancreas: Limited visualization. Aorta: Visualized portions appear normal. IVC: Visualized portions appear normal. Intraperitoneal fluid: None . Other: None . IMPRESSION: Cholelithiasis. No sonographic evidence of cholecystitis or biliary ductal dilatation. Fatty infiltration of the liver. Electronically signed by: Sun Page MD 03/23/2023 6:16 AM CDT Due to temporary technical issues with the PACS/Fluency reporting system, reports are being signed by the in house radiologists without review as a courtesy to insure prompt reporting. The interpreting radiologist is fully responsible for the content of the report.
--- NOTE | 2023-03-23 12:24 | CON ---
Date of Consultation: 03/23/2023 Reason For Consultation: Abdominal pain. History Of Present Illness: This is an 82-year-old gentleman, who comes in with acute onset of right upper quadrant abdominal pain started last night after eating German food. The patient denies any sore throat, runny nose, cough, headaches, dizziness. Minimal epigastric pain. No fever or chills. The patient denies any diarrhea, constipation, blood in stool, dysuria or hematuria. Review of Systems: Otherwise unremarkable. Past Medical History: Significant for Parkinson, hypertension, AFib, on Eliquis, last dose taken yes terday. Social History: The patient does not smoke currently. He does not drink alcohol. Physical Examination: Vital Signs: Stable. He is afebrile. General: He is awake, alert, and oriented x3. Head and Neck: Cranial nerves 2 through 12 are grossly within normal limits. No evidence of icterus . No neck masses. No JVD. Throat clear. Neck is supple. Chest: Clear. Heart: S1 and S2. Abdomen: Soft, nondistended. Positive bowel sounds. Positive right upper quadrant tenderness. No rebound, rigidity, or guarding. Extremity: Adequately perfused. Nontender. Neuro: Nonfocal. Diagnostic Data: CT of the abdomen and pelvis as well as ultrasound consistent with cholelithiasis. Laboratory Data: Reviewed. His LFTs are within normal limits. Lipase is 33. Assessment: Acute cholecystitis and cholelithiasis. Plan: We will hold Eliquis today and proceed with lap choly, possible open tomorrow. IV antibiotics , n.p.o. after midnight. The patient understands the risks, benefits, and alternatives and agrees to procedure. Plan of care discussed in detail with the patient as well as Dr. Bray. /MODL Voice ID: [id number] Report ID: [id number]
[2023-03-23 14:59] VITALS: BMI 33.0
[2023-03-23] MEDS: PIPER TAZO 3.375 GM in NA CHLORIDE 0.9% 100 ML IV SCH (17:05)
[2023-03-24] MEDS: FAMOTIDINE 20 MG TAB PO SCH ×2 (01:44→21:06)
[2023-03-24] MEDS: TAMSULOSIN 0.4 MG SR CAP PO SCH ×2 (01:45→21:05)
[2023-03-24] MEDS: AMIODARONE HCL 200 MG TAB PO SCH ×3 (01:45→21:06)
[2023-03-24] MEDS: ROPINIROLE HCL 1 MG TAB PO SCH ×4 (01:45→21:06)
[2023-03-24] MEDS: MIDODRINE HCL 5 MG TABLET PO SCH ×4 (01:45→17:19)
[2023-03-24] MEDS: PIPER TAZO 3.375 GM in NA CHLORIDE 0.9% 100 ML IV SCH ×3 (01:47→17:19)
--- NOTE | 2023-03-24 08:58 | HP ---
Date of Admission: 03/23/2023 Chief Complaint: Abdominal pain and nausea. History Of Present Illness: This is an 82-year-old male patient, who was doing fine in his normal usual state of health until around 2 o'clock this morning. He woke up from his sleep with right upper quadrant pain and epigastric pain. He had some nausea, no vomiting. Denies any fever, chills. No rash. No constipation. No diarrhea. His pain continued until he came to emergency room and received morphine injection. After that, the pain got relieved. When I saw him, he was still in the emergency room. His was with him at bedside. Allergies: TO SULFA. Medications: List reviewed. Review of Systems: GI: As mentioned above. All other systems reviewed and negative. Past Medical History: Significant for Parkinson disease, gastroesophageal reflux disease, known alcoholic fatty liver disease, renal cyst, benign prostatic hypertrophy, Parkinson disease, anemia, provoked DVT of leg in 1988, 2000, and 2006. Chronic kidney disease, stage IIIA, orthostatic hypotension, liver cyst, hyperlipidemia, paroxysmal atrial fibrillation, and constipation. Past Surgical History: Hernia repair, appendectomy, knee surgery. Family History: Father , had prostate cancer. Mother , had colon cancer. Brother with leukemia. Social History: Prior history of smoking, not at present time. Use of alcohol, occasional glass of wine. Physical Examination: Vital Signs: Temperature 97.6, pulse 58, respiratory rate 19, blood pressure 178/63, oxygen saturation 100%, height 5 feet 10 inches, weight 230 pounds. General: Awake, alert, oriented, not in distress. HEENT: Head atraumatic, normocephalic. Conjunctivae nonerythematous. Sclerae white. Mouth, no thrush or edema noted. Ears/Nose, no mass, lesion, discharge noted. Neck: Supple. No JVD, lymph nodes, bruit, thyromegaly noted. Lungs: Bilateral good equal air entry. Clear to auscultation. No rhonchi. No rales. Heart: Normal heart sounds, no murmur or gallop. Abdomen: Soft. Bowel sounds normal. No guarding, rigidity, distention. No rebound tenderness. Bowel sounds normoactive. No bruit. The patient does have tenderness in the right upper quadrant. Extremities: No leg edema. No calf tenderness. Skin: No rash, ulcer, cellulitis. Lymphatics: No lymph node enlargement in neck, supraclavicular, infraclavicular region. Neuro: No focal neurological deficit. Chest: Unremarkable. External Genitalia: Deferred. Rectal: Deferred. Laboratory Data: White count 7.1, hemoglobin 12.3, platelets 143. Sodium 138, potassium 4.3, chloride 104, bicarb 27, BUN 17, creatinine 1.17, glucose 127. Lactic acid 1.8. Liver function tests unremarkable. Lipase 33. The ultrasound of abdomen shows evidence of gallstones and fatty liver. CAT scan of the abdomen shows evidence of gallstone, cyst in liver, and renal cysts. Impression: 1. Acute cholecystitis with Cholelithiasis. 2. Anemia, unspecified. 3. Parkinson disease. 4. Gastroesophageal reflux disease. 5. Paroxysmal atrial fibrillation. 6. Chronic anticoagulation therapy. 7. Chronic kidney disease, stage IIIA. 8. Benign prostatic hypertrophy. Plan: We will go ahead and admit the patient to hospital for further evaluation and management of this problem. The patient is appropriate for inpatient and is expected to spend 2 midnights in hospital. Consult General Surgeon, Dr. Henry, for the patient's gallstone problem and we will go ahead and start him on empiric antibiotic which is Zosyn. The patient's informed me that he forgot to take his Eliquis last night, so last dose of Eliquis was on March 22, 2023, in the morning, so it has been about 24 hours since he took the last dose of Eliquis and if he has surgery tomorrow, then he will be 48 hours from the last dose, which would be acceptable for surgical intervention. We will continue his famotidine that he takes for his gastroesophageal reflux disease. For benign prostatic hypertrophy, he takes tamsulosin. We will continue that. He takes midodrine for orthostatic hypotension and we will continue that as per order. His Parkinson's medication, carbidopa/levodopa will be continued per order. Details and plan of treatment discussed with the patient. I will see him tomorrow for followup. SCD was ordered for DVT prophylaxis. CORBY/MODL Voice ID: [id number] MTDD
[2023-03-24] MEDS: CARBIDOPA LEVO PO SCH ×3 (09:00→21:00)
[2023-03-24] MEDS ORDERED: Ringers Lactate 1,000 ML IV ONE ×2 (12:08→15:34)
[2023-03-24] MEDS ORDERED: FENTANYL CITR 100 MCG/2 ML ONE ×2 (12:53→13:52)
[2023-03-24] MEDS ORDERED: MIDAZOLAM HCL 2 MG/2 ML INJ ONE (13:52)
[2023-03-24] MEDS ORDERED: propofoL 200 MG/20 ML VIAL IV ONE (13:52)
[2023-03-24] MEDS ORDERED: LIDOCAINE 2% MPF 5 ML VIAL ONE (13:53)
[2023-03-24] MEDS ORDERED: ONDANSETRON 4 MG/2 ML VIAL ONE (13:53)
[2023-03-24] MEDS ORDERED: GLYCOPYRROLATE 0.2 MG/ML SYR ONE (13:56)
[2023-03-24] MEDS ORDERED: ROCURONIUM 50 MG/5 ML VIAL IV ONE (13:56)
[2023-03-24] MEDS ORDERED: NEOSTIGMINE 1 MG/ML -10 ML VIAL ONE (13:57)
[2023-03-24] MEDS ORDERED: BUPIVACAINE 0.5% PF 10 ML VIAL ONE (14:21)
[2023-03-24] MEDS ORDERED: EPHEDRINE SULF 50 MG/ML VIAL ONE (14:28)
[2023-03-24] MEDS ORDERED: ATROPINE SULFATE 1 MG/ML INJ ONE (14:34)
[2023-03-24] MEDS: HYDROMORPHONE HCL 1 MG/ML INJ ONE ×2 (15:26→15:31)
[2023-03-24] MEDS ORDERED: ALBUTEROL 2.5 MG/3 ML NEB SOL ONE (15:46)
[2023-03-24] MEDS ORDERED: EPINEPHRINE INH 0.5 ML VIAL IH ONE (15:46)
[2023-03-24] MEDS ORDERED: HYDROMORPHONE HCL 1 MG/ML INJ ONE (16:00)
[2023-03-24] MEDS ORDERED: HYDROMORPHONE HCL 1 MG/ML INJ IV PRN (16:01)
[2023-03-24] MEDS ORDERED: ONDANSETRON 4 MG/2 ML VIAL IV PRN (16:01)
[2023-03-24] MEDS: NA CHLORIDE 0.9% 1,000 ML IV SCH (16:29)
[2023-03-24] MEDS: HYDROCODONE/APAP 7.5/325 MG TAB PO PRN (17:14)
--- NOTE | 2023-03-24 17:59 | P.OP ---
Date of Service: 03/24/23 Preop diagnosis: Acute cholecystitis and cholelithiasis Postop diagnosis: Same Procedure performed: Laparoscopic cholecystectomy Surgeon: Don Henry MD Diesel Mechanic Apprentice: Christine MUNOZ Estimated blood loss: Minimal Specimen: Gallbladder Findings: As above Anesthesia: General Complications: None Drains: None Fluids and blood products: Nonapplicable Disposition: Recovery room Operative note: Dictated. CC: Dr. Bray's office
--- NOTE | 2023-03-24 19:13 | PN ---
Date of Progress Note: 03/24/2023 Subjective: The patient was seen this morning for followup. No new complaints or problems reported by him. Denies any recurrence of right upper quadrant abdominal pain. No nausea. No vomiting overnight. His was with him at bedside. Objective: Vital Signs: Reviewed. The patient remains afebrile. HEENT: Unremarkable. Lungs: Clear to auscultation. Heart: Sounds normal. Abdomen: Soft. Bowel sounds normal. No guarding, rigidity, tenderness, distention. Extremities: No leg edema. Impression: 1. Acute cholecystitis with Cholelithiasis. 2. Anemia, unspecified. 3. Paroxysmal atrial fibrillation. 4. Parkinson disease. 5. Benign prostatic hypertrophy. 6. Gastroesophageal reflux disease. Plan: We will go ahead and continue IV Zosyn. The patient is scheduled to have gallbladder surgery today. Depending on what time he gets done with the surgery and how his condition is, decision will be made whether to discharge him later today or tomorrow. Details were discussed with the patient and patient's . CORBY/ROSIE Voice ID: [id number] Report ID: [id number] MTDD
--- NOTE | 2023-03-24 22:19 | OP ---
Date of Procedure: 03/24/2023 Surgeon: Don Henry MD Oil Heater Operator: ALEXANDER Phipps. Preoperative Diagnoses: Acute cholecystitis and cholelithiasis. Postoperative Diagnoses: Acute cholecystitis and cholelithiasis. Procedure: Laparoscopic cholecystectomy. Estimated Blood Loss: Minimal. Specimen: Gallbladder. Finding: As above. Anesthesia: General. Complications: None. The patient tolerated the procedure in stable condition and was taken to [facility] room in good general condition. Procedure In Detail: The patient was brought to the OR and placed in supine position. General anest hesia began. The patient was prepped and draped in the usual sterile fashion. Marcaine 0.5% was inf iltrated locally. A 15-blade was used to make a 1 cm supraumbilical midline incision. Subcutaneous tissue was divided. Fascia identified and divided. #1 Vicryl stay suture was placed. Peritoneal ca vity entered with sharp and blunt dissection. A 12 mm trocar placed into the peritoneal cavity under direct vision. Pneumoperitoneum was established. Three 5 mm trocars placed, 1 in the epigastric re gion just to the right of midline and 2 in the right subcostal region. Laparoscopy revealed acute in flammation of the gallbladder with distention present. The gallbladder was aspirated of thick bile a nd then fundus retracted superiorly. Infundibulum was identified and retracted inferolaterally. Cys tic duct and cystic artery clearly identified with blunt dissection. Clips placed. Both structures were divided. Cautery used to remove the gallbladder from the liver bed. Bleeding on the liver bed controlled with cautery. Gallbladder was retrieved through the umbilicus via an Endo Catch bag. Rig ht upper quadrant was irrigated. Effluent clear. No evidence of bleeding or bile leakage appreciate d. Subsequently, all trocars were removed under direct vision. Stay sutures were tied to each other to reapproximate the fascial defect. Subcu wounds irrigated. Bleeding controlled cautery. 3-0 chr omic used to approximate the subcutaneous tissue and close the skin. Sterile dressing applied. The patient was awakened and taken to recovery room in good general condition. /MODL Voice ID: [id number] Report ID: [id number]
[2023-03-25] MEDS: PIPER TAZO 3.375 GM in NA CHLORIDE 0.9% 100 ML IV SCH ×2 (00:55→09:06)
[2023-03-25] MEDS: HYDROCODONE/APAP 7.5/325 MG TAB PO PRN (02:00)
[2023-03-25 04:46] LABS: Absolute Lymphocytes (CBC) 1.2 K/uL (0.7-4.9); Hematocrit 36.4 % (39.6-49.0); Lymphocytes % 8.7 % (15.3-44.8); MCV 94.3 fL (80-100); RBC Red Blood Cell Count 3.86 M/uL (4.33-5.43)
[2023-03-25] MEDS: NA CHLORIDE 0.9% 1,000 ML IV SCH (05:47)
[2023-03-25 08:20] VITALS: BP 112/56; TEMP 97.7
[2023-03-25] MEDS: CARBIDOPA LEVO PO SCH (09:00)
[2023-03-25] MEDS: MIDODRINE HCL 5 MG TABLET PO SCH (09:04)
[2023-03-25] MEDS: ROPINIROLE HCL 1 MG TAB PO SCH (09:05)
[2023-03-25] MEDS: AMIODARONE HCL 200 MG TAB PO SCH (09:05)
--- NOTE | 2023-03-25 09:07 | PN ---
Date of Progress Note: 03/25/2023 Subjective: Patient is awake and alert. No pain. Objective: Vital Signs: Stable. Afebrile. Abdomen: Benign. Laboratory Data: Reveals a leukocytosis 13.8, with a left shift. H and H are stable. Assessment: Status post laparoscopic cholecystectomy. Recommendations: If patient is clinically doing well, he can be discharged home on antibiotics and f ollow with me in 1 to 2 weeks. Discharge instructions were given. We will discuss the case with Dr. Bray after he sees the patient as well. /MODL Voice ID: [id number] Report ID: [id number]
[2023-03-25 10:05] VITALS: O2SAT 93
--- NOTE | 2023-03-25 12:07 | DS ---
Date of Discharge: 03/25/2023 Disposition: Discharged to go home. Physical Examination: HEENT: Unremarkable. Lungs: Clear to auscultation. Heart: Sounds normal. Abdomen: Soft. Bowel sounds normal. No guarding, rigidity, tenderness, or distention. Extremities: No leg edema. Laboratory Data: Upon admission; white count 7.1, hemoglobin 12.3, platelets 143. Today; white coun t 13.8, hemoglobin 12, platelets 147. Upon admission; sodium 138, potassium 4.3, chloride 104, bicar b 27, BUN 17, creatinine 1.17, glucose 127. Liver function tests unremarkable. Lactic acid 1.8. Li pase 33. Discharge Medications And Instructions: 1.Continue all prior home medications. 2.Take Augmentin 875 mg 2 times a day with food for 1 week. 3.Take Tylenol 500 mg 2 tablets by mouth 3 times a day as needed for pain. 4.Follow up at my office next week. 5.Follow up with Dr. Henry a week after next. 6.Patient to ambulate for 5 minutes every hour during daytime. Hospital Course: This is an 82-year-old male patient came into emergency room with acute onset of ri ght upper quadrant abdominal pain and nausea. Please see dictated H and P for more information. The patient was evaluated in the emergency room. He was admitted to the hospital. Patient had right up per quadrant tenderness and abdominal ultrasound had shown evidence of gallstones. CAT scan of the a bdomen also revealed the same findings. General surgeon, Dr. Henry, was consulted from [facility] and patient takes Eliquis at home. So surgery was done yesterday afternoon and he was more than 4 8 hours from the last dose of Eliquis. Postoperatively, his condition has remained stable. This mor fran, he tolerated breakfast very well and does not have any other complaints. Medically, he is stab le for discharge. Dr. Henry has released him from General Surgery and medically he is stable. Final Diagnoses: 1.Acute cholecystitis with cholelithiasis, status post laparoscopy cholecystectomy. 2.Anemia, unspecified. 3.Thrombocytopenia. 4.Parkinson disease. 5.Gastroesophageal reflux disease. 6.Paroxysmal atrial fibrillation. 7.Chronic anticoagulation therapy. 8.Chronic kidney disease, stage 3A. 9.Benign prostatic hypertrophy. CORBY/MODL Voice ID: [id number] Report ID: [id number]
== END 2023-03-25 12:12 | disposition home or self-care (01) | DRG 419 ==
LOC: SUPCPDRO 04:32 → ER 04:32 → ERHOLD 08:20 → 4TH 14:01 → OBSVTOIN 21:41
PROVIDERS: ADMIT Internal Medicine; ATTEND Internal Medicine
PROC: 0FT44ZZ Resection of Gallbladder, Percutaneous Endoscopic Approach (ICD-10-PCS; principal; 2023-03-24 12:45)
DX: K80.00 Calculus of gallbladder with acute cholecystitis without obstruction (principal); I12.9 Hypertensive chronic kidney disease with stage 1 through stage 4 chronic kidney disease, or unspecified chronic kidney disease; N18.31 Chronic kidney disease, stage 3a; D63.1 Anemia in chronic kidney disease; I95.1 Orthostatic hypotension; I48.0 Paroxysmal atrial fibrillation; G20 Parkinson's disease; K21.9 Gastro-esophageal reflux disease without esophagitis; N40.0 Benign prostatic hyperplasia without lower urinary tract symptoms; Z88.1 Allergy status to other antibiotic agents; Z79.01 Long term (current) use of anticoagulants; Z86.718 Personal history of other venous thrombosis and embolism; Z79.899 Other long term (current) drug therapy
CPT/HCPCS: 36415; 74177; 76705; 80053; 81003; 83605; 83690; 84484; 85025; 88304; 93005; 94010; 96365; 96366; 96375; 97110; 97161; 97530; 99285; G0378; J0461; J1170; J2001; J2250; J2405; J2543; J2704; J2710; J3010; J7030; J7120; J7613; Q9967

== ENCOUNTER 2023-03-27 15:57 | Inpatient (IN) | payer OTHER ==
--- OUTSIDE RECORDS SUMMARY | 2023-03-27 16:01 | XMS REPORT | Continuity of Care Document ---
:1940 Author Organization [facility] t Address [address] [facility]. [address] [place] [address] Care Team Providers Name Role Phone Arun Aguiar MD N.S. Primary Care Physician [phone] Arun Aguiar MD N.SDelvis Attending Clinician [phone] Adria JACKSON, Herbie Khan Attending Clinician Fernando Graves Attending Clinician Unavailable MD ARUN [...] Stop Date Quantity Comments Source History SDOH [facility] l History SDOH [facility] Std Drinks [facility] al History SDOH [facility] Alcohol intake 2021-02-01 2021-02-01 Current drinker [facility] 00:00:00 00:00:00 of alcohol Hospital (finding) History of Social 2021-02-01 2021-02-[address] function 00:00:00 00:00:00 Hospital Tobacco use and 2021-01-28 2021-01-28 Smokeless [facility] exposure 00:00:00 00:00:00 tobacco non-user Hospital Alcohol Comment 2021-01-28 2021-01-28 2 glasses/week [facility] 00:00:00 00:00:00 Hospital History of tobacco 1965-12-02 Cigarette Smoker [facility] use 00:00:00 Hospital Sex Assigned At [birth year] [facility] 00:[facility]00 [facility] Smoking Status Start Date [...] gretel 1,000 unit 21 l tablet multivitami 2020-0 Yes 1{tbl} Take 1 Me thodi n,tx-iron-m 3-[address] inerals 03:03: mouth. Hospita tablet 21 l aspirin 81 2020-0 Yes 81mg Chew 81 Meth adonis mg chewable 3-[address] tablet 03:03: Hospita 21 l glucosamine 2020-0 Yes 1{tbl} Take 1 Me thodi sulfate 500 3-[address] mg tablet 03:03: mouth. Hospit a 21 l cholecalcif 2020-0 Yes 1000U Take 1,000 [facility] denys, 3-[address] vitamin D3, 03:03: mouth. Hosp gretel 1,000 unit 21 l tablet multivitami 2020-0 Yes 1{tbl} Take 1 Me thodi n,tx-iron-m [...] mg tablet 00:00: Hospita 00 l cephalexin 202-0 Yes [facility] (KEFLEX) 3-24 st 500 MG 00:00: Hospita capsule 00 l traMADoL 2020-0 Yes [facility] (ULTRAM) 50 3-24 st mg tablet 00:00: Hospita 00 l cephalexin 202-0 Yes [facility] (KEFLEX) 3-24 st 500 MG 00:00: Hospita capsule 00 l traMADoL 2020-0 Yes [facility] (ULTRAM) 50 3-24 st mg tablet 00:00: Hospita 00 l cephalexin 2021-0 Yes [facility] (KEFLEX) 3-24 st 500 MG 00:00: Hospita capsule 00 l carbidopa-l 2020-0 Yes 1{tbl} Q.[id number] Take 1 [facility] evodopa 3-10 [id number] tablet by s t (SINEMET) 00:00: 3D mouth 3 Hospi ta 25-100 mg 00 (three) l per tablet times a day. carbidopa-l 2020-0 Yes 1{tbl} Q.[id number] Take 1 [facility] evodopa 3-10 [id number] tablet by s t (SINEMET) 00:00: 3D mouth 3 Hospi ta 25-100 mg 00 (three) l per tablet times a day. carbidopa-l 2020-0 Yes 1{tbl} Q.[id number] Take 1 [facility] evodopa 3-10 [id number] tablet by s t (SINEMET) 00:00: 3D [...] Hospit a 25 MG 00 l tablet promethazin 2020-0 Yes Method i e 3-03 st (PHENERGAN) 00:00: Hospit a 25 MG 00 l tablet montelukast 0 Yes 10mg QD Take 10 mg Method[facility] [...] Source Systolic blood 2021-01-29 15:01:00 140 mm[Hg] [facility] pressure Diastolic blood 2021-01-29 15:01:00 63 mm[Hg] [facility] pressure Heart rate 2021-01-29 15:01:00 64 /min [facility] Body temperature 2021-01-29 15:01:[address] [facility] Respiratory rate 2021-01-29 15:01:00 15 /min [facility] Oxygen saturation in 2021-01-29 15:01:00 100 /min [facility] Arterial blood by Pulse oximetry Body height 2021-01-29 12:40:00 177.8 cm [facility] Body weight 2021-01-29 12:40:00 109.799 kg [facility] BMI 2021-01-29 12:40:00 34.73 kg/m2 [facility] Procedures Procedure Date / Time Performed Performing Clinician Sourc e RECONSTRUCTION, EYELID 2021-01-29 13:32:00 [facility] COVID-19 QUALITATIVE 2021-01-26 15:20:00 [facility] RT-PCR COVID-19 QUALITATIVE 2021-01-04 18:35:00 [facility] RT-PCR COVID-19 QUALITATIVE 2020-12-14 16:15:00 [facility] RT-PCR Plan of Care Planned Activity Planned Date Details Comments Source Future Scheduled 2023-02-06 COVID-19 VACCINE (#1) [facility] Test 03:46:08 [code = COVID-19 VACCINE (#1)] Future Scheduled 2023-02-06 SHINGLES VACCINES (1 Met [facility] Test 03:46:08 of 2) [code = SHINGLES VACCINES (1 of 2)] Future Scheduled 2023-02-06 65+ [address]NEUM[address] [facility] Test 03:46:08 VACCINE (1 - PCV) [code = 65+ PNEUMOCOCCAL VACCINE (1 - PCV)] Future Scheduled 2023-02-06 INFLUENZA VACCINE [facility] Test 03:46:08 [code = INFLUENZA VACCINE] Future Scheduled 2023-02-06 COVID-19 [facility]ACCINE (#1) [facility] Test 03:46:08 [code = COVID-19 VACCINE (#1)] Future Scheduled 2023-02-06 SHINGLES VACCINES (1 Met [facility] Test 03:46:08 of 2) [code = SHINGLES VACCINES (1 of 2)] Future Scheduled 2023-02-06 65+ PNEUMOCOCCAL [facility] Test 03:46:08 VACCINE (1 - PCV) [code = 65+ PNEUMOCOCCAL VACCINE (1 - PCV)] Future Scheduled 2023-02-06 INFLUENZA VACCINE [facility] Test 03:46:08 [code = INFLUENZA VACCINE] Future Scheduled 2021-12-07 COVID-19 VACCINE (1) Met [facility] Test 19:38:07 [code = COVID-19 VACCINE (1)] Future Scheduled 2021-12-07 [facility] Test 19:38:07 [code = SHINGLES VACCINES (#1)] Future Scheduled 2021-12-07 65+ PNEUMOCOCCAL [facility] Test 19:38:07 VACCINE (1 of 1 - PPSV23) [code = 65+ PNEUMOCOCCAL VACCINE (1 of 1 - PPSV23)] Future Scheduled 2021-12-07 INFLUENZA VACCINE [facility] Test 19:38:07 [code = INFLUENZA VACCINE] Encounters Start End Encounter Admission Attending Care Care Encounter Source Date/Time Date/Time Type Type Clinicians Facility Department ID 2021-01-29 2021-01-29 [facility] 1.2.840.1 [id number] [facility] 05:46:00 23:59:00 Encounter Arun [id number] 3.430.2.7 Hospit a .3.685067 l .8 2021-01-29 2021-01-29 Anesthesia Herbie Covington 1.2.840 .1 [id number] [facility] 08:32:00 09:33:00 Event Fernando Graves 17091.1.[address] 3.430.2.7 Hospit a .3.886580 l .8 2021-01-29 2021-01-29 Surgery Soparkar, 1.2.840.1 [id number] [facility] 07:30:00 08:15:[address] 3.430.2.7 Hospit a .3.097715 l .8 2021-01-29 2021-01-29 Travel 1.2.840.1 1.2.079.510 [id number] Methodi 00:00:00 00:00:[address] 3.430.2.7 0.2.7.3.698 Ho spita .3.000357 084.8 l .8 2021-01-26 2021-01-26 Lab Soparkar, 1.2.840.1 [id number] [facility] 10:11:57 10:16:[address] 3.430.2.7 Hospit a .3.633858 l .8 2021-01-26 2021-01-26 Travel 1.2.840.1 1.2.076.987 [id number] [facility] 00:00:00 00:00:[address] 3.430.2.7 0.2.7.3.698 Ho spita .3.792745 084.8 l .8 2021-01-04 2021-01-04 Lab Soparkar, 1.2.840.1 [id number] [id number] [facility] 12:32:25 12:37:[address] 3.430.2.7 Hospit a .3.212995 l .8 2021-01-04 2021-01-04 Travel 1.2.840.1 1.2.983.166 [id number] [facility] 00:00:00 00:00:[address] 3.430.2.7 0.2.7.3.698 Ho spita .3.678431 084.8 l .8 2020-12-14 2020-12-14 Lab [place], 1.2.840.1 [id number] [id number] [facility] 10:04:59 10:19:[address]S. 3.430.2.7 Hospit a .3.663639 l .8 2020-12-14 2020-12-14 Travel 1.2.840.1 1.2.525.313 [id number] [id number] [facility] 00:00:00 00:00:[address] 3.430.2.7 0.2.7.3.698 Ho spita .3.878600 084.8 l .8 Results Test Description Test Time Test Comments Results Result Comments Source COVID-19 qualitative PCR 2021-01-27 00:21:42 Test Item Value Reference Range Interpretation Comme nts Interpretation (test code = Negative results do not 9243907) preclude 2019-nCoV infection and should not be used as the sole basis for treatment or other patient management decisions. Negative results must be combined with clinical observations, patient history, and epidemiological information. COVID-19 qualitative RT-PCR Not-Detected Not-Detected result (test code = 68509-8) COVID-19 qualitative RT-PCR See link below for PDF Lab Case Number: (test code = 7070) Report [id number] Layla Oneill KbtscornYYBH-ErB-8 (COVID-19) RNA [Presence] in Respiratory specimen by DONNA with probe [id number] 19:21:11 Test Item Value Reference Range Interpretation Comments SARS-CoV-2 (COVID-19) RNA Not detected Not-Detected [Presence] in Respiratory specimen by DONNA with probe detection (test code = 59406-0) PENG ERICKSONSARS-CoV-2 (COVID-19) RNA [Presence] in Respiratory specimen by DONNA with probe [id number] 19:59:22 Test Item Value Reference Range Interpretation Comments SARS-CoV-2 (COVID-19) RNA Not detected Not-Detected [Presence] in Respiratory specimen by DONNA with probe detection (test code = 74717-7) PENG ERICKSONSARS-CoV-2 (COVID-19) RNA [Presence] in Respiratory specimen by DONNA with probe [id number] 20:41:07 Test Item Value Reference Range Interpretation Comments SARS-CoV-2 (COVID-19) RNA [Presence] Detected Not-Detected in Respiratory specimen by DONNA with probe detection (test code = 07249-2) PENG ERICKSON
--- NOTE | 2023-03-27 16:39 | RAD REPORT ---
EXAM DESCRIPTION: RAD - Chest Single View - 03/27/2023 4:33 pm CLINICAL HISTORY: weakness Chest pain. COMPARISON: <Comparisons> FINDINGS: Portable technique limits examination quality. The lungs are grossly clear. The heart is upper limit of normal in size. No displaced fractures. IMPRESSION: No acute intrathoracic process suspected.
[2023-03-27 17:08] LABS: Hematocrit 37.9 % (39.6-49.0); Lymphocytes % 7.1 % (15.3-44.8); MCV 93.6 fL (80-100); MPV 8.9 fL (7.6-11.3); RBC Red Blood Cell Count 4.05 M/uL (4.33-5.43)
[2023-03-27 17:14] LABS: Specific Gravity 1.014 (1.005-1.030); Urine Bacteria 20-50 /HPF (<20); Urine Bilirubin NEGATIVE (Negative); Urine Blood 3+ (OVER) (Negative); Urine Clarity Turbid (Clear); Urine Color Yellow (Yellow); Urine Glucose NEGATIVE (Negative); Urine Protein TRACE (Negative); Urine RBC >50 /HPF (None Seen); Urine Urobilinogen Normal (Normal); Urine pH 5.5 (5.0-7.0)
[2023-03-27 17:15] LABS: Potassium 3.9 mEq/L (3.5-5.1); Troponin High Sensitivity 17.1 pg/mL (<58.9)
--- NOTE | 2023-03-27 18:04 | ER ---
Nurse's Notes [facility] Name: Good Pinzon Age: 82 yrs Sex: Male : 1940 Arrival Date: 03/27/2023 Time: 15:57 Bed 7 Private MD: Diagnosis: Acute Kidney Injury;Acute Urinary Retention;UTI Presentation: 03/27 16:10 Chief complaint: Patient states: Recently had gallbladder removed (03/25), was d/c home ph Monday then Monday night began having urinary frequency, feeling like bladder was not emptied, burning w/ urination, and episodes of bladder incontinence. Coronavirus screen: Vaccine status: Patient reports receiving the 2nd dose of the covid vaccine. Ebola Screen: No symptoms or risks identified at this time. Initial Sepsis Screen: Does the patient have a suspected source of infection? Yes: Dysuria/Frequency/Urgency/UTI. Risk Assessment: Do you want to hurt yourself or someone else? Patient reports no desire to harm self or others. Onset of symptoms was March 27, 2023. 16:10 Method Of Arrival: Wheelchair 16:16 Initial Sepsis Screen: Does the patient meet any 2 criteria? No. Patient's initial ph sepsis screen is negative. 16:16 Acuity: ISMAEL 3 ph Historical: - Allergies: 16:13 Sulfa (Sulfonamide Antibiotics); ph - PMHx: 16:13 Atrial fibrillation; Hypertensive disorder; Parkinson's disease; ph - PSHx: 16:13 Cholecystectomy; ph - Immunization history:: Adult Immunizations unknown. - Social history:: Smoking status: Patient denies any tobacco usage or history of. Screenin:04 [facility] ED Fall Risk Assessment (Adult) History of falling in the last 3 months, mb9 including since admission No falls in past 3 months (0 pts) Confusion or Disorientation No (0 pts) Intoxicated or Sedated No (0 pts) Impaired Gait No (0 pts) Mobility Assist Device Used No (0 pt) Altered Elimination No (0 pt) Score/Fall Risk Level 0 - 2 = Low Risk Oriented to surroundings, Maintained a safe environment, Educated pt \T\ family on fall prevention, incl call for assistance when getting out of bed. Abuse screen: Denies threats or abuse. Nutritional screening: No deficits noted. Tuberculosis screening: No symptoms or risk factors identified. Assessment: 16:44 General: Appears in no apparent distress. Behavior is cooperative. Pain: Complains of mb9 pain in abdomen Pain does not radiate. Quality of pain is described as throbbing. Neuro: Level of Consciousness is awake, alert, obeys commands, Oriented to person, place, time, situation, Appropriate for age. Cardiovascular: Rhythm is regular. Respiratory: Airway is patent Respiratory effort is even, unlabored, Respiratory pattern is regular, symmetrical. GI: Abdomen is round distended. : Reports burning with urination, inability to void, urgency, urinary frequency. EENT: No signs and/or symptoms were reported regarding the EENT system. Derm: Skin is pink, warm \T\ dry. Musculoskeletal: Range of motion: intact in all extremities. 19:00 Reassessment: No changes from previously documented assessment. Patient and/or family vc1 updated on plan of care and expected duration. Pain level reassessed. Patient is alert, oriented x 3, equal unlabored respirations, skin warm/dry/pink. 20:00 Reassessment: No changes from previously documented assessment. Patient and/or family vc1 updated on plan of care and expected duration. Pain level reassessed. Patient is alert, oriented x 3, equal unlabored respirations, skin warm/dry/pink. Vital Signs: 16:16 BP 98 / 60; Pulse 58; Resp 18; Temp 99(O); Pulse Ox 97% on R/A; Weight 104.33 kg; ph Height 5 ft. 10 in. ; 16:46 BP 123 / 48; Pulse 61; Resp 18; Pulse Ox 98% on R/A; mb9 19:00 BP 141 / 65; Pulse 67; Resp 18; Pulse Ox 97% on R/A; vc1 20:00 BP 131 / 64; Pulse 64; Resp 19; Pulse Ox 97% on R/A; vc1 16:16 Body Mass Index 33.00 (104.33 kg, 177.8 cm) ph ED Course: 15:58 Patient arrived in ED. am2 16:02 aSúl Drake PA is PHCP. jmm 16:02 Micheal Weir MD is Attending Physician. jmm 16:13 Arm band placed on. ph 16:16 Triage completed. ph 16:20 Oumou Cadena RN is Primary Nurse. 7 16:23 Placed in gown. Bed in low position. Call light in reach. Side rails up X 1. Client mb9 placed on continuous cardiac and pulse oximetry monitoring. NIBP monitoring applied. 16:34 XRAY Chest (1 view) In Process Unspecified. EDMS 16:42 Lori Hazel, RN is Primary Nurse. mb9 16:42 Basic Metabolic Panel Sent. mb9 16:44 EKG done, by ED staff, reviewed by Saúl STEVE. Inserted saline lock: 22 gauge in mb9 right antecubital area, using aseptic technique. 16:47 No provider procedures requiring assistance completed. mb9 17:03 CBC with Diff Sent. mb9 17:03 Troponin HS Sent. mb9 17:03 Octton cath inserted, using sterile technique, 16 Fr., by la, balloon inflated, to mb9 gravity drainage, urine specimen collected. returned hoang urine. Patient tolerated well. 17:04 Basic Metabolic Panel Sent. mb9 17:05 Urinalysis w/ reflexes Sent. mb9 17:57 Urine Culture Sent. mb9 18:03 Valerie Bray MD is Hospitalizing Provider. [facility] 20:30 Patient admitted, IV remains in place. vc1 Administered Medications: 18:25 Drug: Rocephin IV 1 grams Route: IV; Rate: calculated rate; Site: right antecubital; mb9 Medication: 16:23 VIS not applicable for this client. mb9 Output: 17:11 Urine: 1200ml (Cotton); Total: 1200ml. mb9 Outcome: 18:04 Decision to Hospitalize by Provider. m 20:30 Admitted to Tele accompanied by tech, via stretcher, room 403, with chart, Report vc1 called to RAMSES Lopez 20:30 Condition: good 20:30 Instructed on the need for admit. 21:03 Patient left the ED. kl Signatures: Dispatcher [employer] EDMS Mira Chawla RN RN kl Mickail, Joel, PA PA Tiff Laura RN RN ph Leal, Jahala, RN RN jl7 Juliana Perales Vanessa, RN RN vc1 Lori Hazel RN RN mb9
--- NOTE | 2023-03-27 18:04 | EDPHYS ---
Physician Documentation [facility] Name: Good Pinzon Age: 82 yrs Sex: Male : 1940 Arrival Date: 03/27/2023 Time: 15:57 Bed 7 Private MD: ED Physician Micheal Weir HPI: 03/27 16:08 This 82 yrs old Male presents to ER via Wheelchair with complaints of Urinary Retention.jmm 16:08 Onset: The symptoms/episode began/occurred acutely, 2 day(s) ago. This is an 82 year jmm old male with a history of atrial fibrillation, htn that presents to the ED with complaints of weakness, fatigue, difficulty urinating beginning approx 2 days ago. Patient is s/p cholecystectomy. . Historical: - Allergies: 16:13 Sulfa (Sulfonamide Antibiotics); ph - PMHx: 16:13 Atrial fibrillation; Hypertensive disorder; Parkinson's disease; ph - PSHx: 16:13 Cholecystectomy; ph - Immunization history:: Adult Immunizations unknown. - Social history:: Smoking status: Patient denies any tobacco usage or history of. ROS: 16:08 Constitutional: Positive for fatigue. jmm 16:08 : Positive for urinary symptoms. 16:08 Neuro: Positive for weakness. 16:08 All other systems are negative. Exam: 16:08 Constitutional: This is a well developed, well nourished patient who is awake, alert, jmm and in no acute distress. Head/Face: atraumatic. Eyes: EOMI, no conjunctival erythema appreciated ENT: Moist Mucus Membranes Neck: Trachea midline, Supple Chest/axilla: Normal chest wall appearance and motion. Cardiovascular: Regular rate and rhythm. No edema appreciated Respiratory: Normal respirations, no respiratory distress appreciated Abdomen/GI: Non distended Back: Normal ROM Skin: General appearance color normal MS/ Extremity: Moves all extremities, no obvious deformities appreciated, no edema noted to the lower extremities Neuro: Awake and alert Psych: Behavior is normal, Mood is normal, Patient is cooperative and pleasant Vital Signs: 16:16 BP 98 / 60; Pulse 58; Resp 18; Temp 99(O); Pulse Ox 97% on R/A; Weight 104.33 kg; ph Height 5 ft. 10 in. ; 16:46 BP 123 / 48; Pulse 61; Resp 18; Pulse Ox 98% on R/A; mb9 19:00 BP 141 / 65; Pulse 67; Resp 18; Pulse Ox 97% on R/A; vc1 20:00 BP 131 / 64; Pulse 64; Resp 19; Pulse Ox 97% on R/A; vc1 16:16 Body Mass Index 33.00 (104.33 kg, 177.8 cm) ph MDM: 16:38 Patient medically screened. [facility] 18:28 Differential diagnosis: UTI, urinary retention. Data reviewed: vital signs, nurses [facility] notes, lab test result(s). Consideration of Admission/Observation Patient was admitted/placed on observation. Escalation of care including admission/observation considered. Management of patient was discussed with the following: Dr. Bray. I considered the following discharge prescriptions or medication management in the emergency department Medications were administered in the Emergency Department. See MAR. Counseling: I had a detailed discussion with the patient and/or guardian regarding: the historical points, exam findings, and any diagnostic results supporting the discharge/admit diagnosis, lab results, radiology results, the need for further work-up and treatment in the hospital. 03/27 16:08 Order name: Urinalysis w/ reflexes; Complete Time: 17:15 [facility] 03/27 16:15 Order name: Basic Metabolic Panel; Complete Time: 17:22 [facility] 03/27 16:15 Order name: CBC with Diff; Complete Time: 17:15 [facility] 03/27 16:15 Order name: Troponin HS; Complete Time: 17:22 [facility] 03/27 17:50 Order name: Urine Culture [facility] 03/27 18:38 Order name: Basic Metabolic Panel [facility] 03/27 18:38 Order name: Basic Metabolic Panel [facility] 03/27 18:38 Order name: CBC with Automated Diff [facility] 03/27 18:38 Order name: CBC with Automated Diff [facility] 03/27 16:15 Order name: XRAY Chest (1 view); Complete Time: 16:43 [facility] 03/27 16:15 Order name: EKG; Complete Time: 16:16 [facility] 03/27 16:08 Order name: Cotton; Complete Time: 17:05 [facility] 03/27 16:15 Order name: Cardiac monitoring; Complete Time: 16:27 [facility] 03/27 16:15 Order name: EKG - Nurse/Tech; Complete Time: 16:25 [facility] 03/27 16:15 Order name: IV Saline Lock; Complete Time: 16:42 [facility] 03/27 16:15 Order name: Labs collected and sent; Complete Time: 16:42 [facility] 03/27 16:15 Order name: O2 Per Protocol; Complete Time: 16:27 [facility] 03/27 16:15 Order name: O2 Sat Monitoring; Complete Time: 16:27 [facility] Administered Medications: 18:25 Drug: Rocephin IV 1 grams Route: IV; Rate: calculated rate; Site: right antecubital; mb9 Disposition Summary: 03/27/23 18:04 Hospitalization Ordered Hospitalization Status: Inpatient Admission [facility] Provider: Valerie Bray Location: Telemetry/MedSurg (Inpatient) [facility] Condition: Stable [facility] Problem: new jmm Symptoms: are unchanged [facility] Bed/Room Type: Standard [facility] Room Assignment: 403(03/27/23 19:00) Diagnosis - Acute Kidney Injury [facility] - Acute Urinary Retention [facility] - UTI [facility] Forms: - Medication Reconciliation Form [facility] - SBAR form [facility] Addendum: 03/29/2023 09:30 Co-signature as Attending Physician, Micheal Weir MD I reviewed the patient's care r t provided by the Advanced Practice Provider and agree with the diagnosis and treatment plan. Signatures: Dispatcher [employer] Anisha Turpin RN RN mw Mickail, Joel, PA PA Tiff Laura RN RN ph Breneman, Mary Beth, RN RN mb9 [place], Ryan, MD MD rt Corrections: (The following items were deleted from the chart) 03/27 19:00 18:04 [facility]
[2023-03-27] MEDS ORDERED: CEFTRIAXONE 1000 MG/VIAL ONE (18:24)
[2023-03-27] MEDS ORDERED: NA CHLORIDE 0.9% 50 ML ONE (18:25)
[2023-03-27] MEDS ORDERED: ACETAMINOPHEN 500 MG TAB PO PRN (18:35)
[2023-03-27] MEDS ORDERED: NA CHLORIDE 0.9% 1,000 ML IV SCH (19:00)
[2023-03-27 21:44] VITALS: BMI 32.4
--- NOTE | 2023-03-28 02:46 | HP ---
Date of Admission: 03/27/2023 Chief Complaint: Feeling weak, tired, dizzy, and trouble urinating. History Of Present Illness: This is an 82-year-old pleasant male patient who had laparoscopic cholec ystectomy done last week by Dr. Henry for acute cholecystitis with gallstones. Prior to that admissi on, the patient was taking tamsulosin 0.4 mg 3 times a day and upon discharge, he was told to take ta msulosin 0.4 mg daily and he has been doing it. Today, he came into office with his and reporte d that he was having trouble urinating. Ever since he came home from the hospital, he was going to t he bathroom very frequently and very small amount of urine comes out and also has noted some incontin ence of urine. Denies any fever or any hematuria. He is having poor appetite, feeling weak, tired, and unsteady on his feet and in fact a couple of times at office today, he lost balance when he was t rying to get up and walk. He was assisted in a wheelchair at the office. After I evaluated him, he was advised to come to emergency room as I was concerned about urinary retention and details were dis cussed with the emergency room provider prior to his evaluation in the ER and after evaluation comple jhoan and details were discussed with emergency room provider and decision was made to admit him to the hospital. His bladder scan in the emergency room showed significant amount of urinary retention and Cotton catheter was placed and after about 1400 cc of urine, which was drained in the emergency room, his Cotton catheter was clamped. The patient's creatinine has gone up to 3.07, indicating acute kidn ey injury. His creatinine was 1.17 last week on 03/23/2023. Allergies: SULFA. Medications: Amiodarone 200 mg daily, Augmentin 875 mg 2 times a day, Eliquis 5 mg 2 times a day, at orvastatin 20 mg daily at bedtime, carbidopa/levodopa 50/200 mg 1 tablet 3 times a day, famotidine 40 mg daily at bedtime, midodrine 5 mg 3 times a day, ropinirole 1 mg 2 times a day, and tamsulosin 0.4 mg. Review of Systems: Constitutional: As mentioned above. Genitourinary: As mentioned above. All other systems reviewed and negative. Past Medical History: Significant for Parkinson disease; orthostatic hypotension; hyperlipidemia; pa roxysmal atrial fibrillation; gastroesophageal reflux disease; nonalcoholic fatty liver disease; gabi l cyst; chronic kidney disease; benign prostatic hypertrophy; anemia; provoked DVT of leg in 1988, 25 11, and 2006, now on chronic anticoagulation therapy for atrial fibrillation. Past Surgical History: Significant for hernia repair, appendectomy, cholecystectomy done last week, and surgery on both knees. Family History: Father and had prostate cancer. Mother and had colon cancer. Brother d and had leukemia. Social History: Prior history of smoking. Use of alcohol occasional. Physical Examination: Vital Signs: Blood pressure 120/61, pulse 67, temperature 98.7, respiratory rate 15, weight 235.4 po unds, and height 70 inches. General: The patient appears weaker than normal, not in any distress HEENT: Head atraumatic, normocephalic. Conjunctivae nonerythematous. Sclerae white. Mouth, no thr ush or edema noted. Ears/Nose, no mass, lesion, discharge noted. Neck: Supple. No JVD, lymph nodes, bruit, thyromegaly noted. Lungs: Bilateral good equal air entry. Clear to auscultation. No rhonchi. No rales. Heart: Normal heart sounds, no murmur or gallop. Abdomen: Distended bladder with suprapubic tenderness. Otherwise, abdomen soft. Bowel sounds prese nt. No hepatosplenomegaly. No bruit. Extremities: No leg edema. No calf tenderness. Skin: No rash, ulcer, cellulitis. Lymphatics: No lymph node enlargement in neck, supraclavicular, infraclavicular region. Neuro: No focal neurological deficit. Chest: Unremarkable. External Genitalia: Deferred. Rectal: Deferred. Laboratory Data: White count 14.4, hemoglobin 12.3, and platelets 178. Sodium 132, potassium 3.9, c hloride 102, bicarb 24, BUN 35, creatinine 3.07, and glucose 94. Troponin 17.1. His creatinine was 1.17 on 03/23/2023. Urinalysis today with more than 50 RBC, 3+ blood, 20 to 50 bacteria. Chest x-ra y: No acute cardiopulmonary changes. Impression: 1.Urinary retention. 2.Acute kidney injury. 3.Benign prostatic hypertrophy with lower urinary tract symptoms. 4.Urinary tract infection. 5.Parkinson disease. 6.Orthostatic hypotension. 7.Paroxysmal atrial fibrillation. 8.Chronic anticoagulation therapy. 9.Hyperlipidemia. 10.Gastroesophageal reflux disease. 11.Nonalcoholic fatty liver disease. 12.Chronic anticoagulation therapy. Plan: We will admit the patient to hospital for further evaluation and management of this problem. The patient is appropriate for inpatient and is expected to spend 2 midnights in hospital. We will l eave the Cotton catheter in place and at appropriate time, we will decide about removal of Cotton jose f ter. Meanwhile, we will give him tamsulosin 0.4 mg 2 times a day and also start him on finasteride 5 mg daily. For urinary tract infection, we will follow up on urine culture. The patient received 1 dose of ceftriaxone in the emergency room on outpatient basis. He takes Augmentin, which we will con tinue that starting tomorrow. For acute kidney injury, we will continue IV fluid and repeat blood wo rk tomorrow. We will consult Physical Therapy to help ambulate him. We will start him on Eliquis st arting tomorrow. We will continue his Parkinson's medication per order and details and plan of treat ment discussed with patient and patient's . CORBY/ROSIE Voice ID: [id number]
[2023-03-28 06:16] LABS: Absolute Lymphocytes (CBC) 1.6 K/uL (0.7-4.9); Hematocrit 35.7 % (39.6-49.0); Lymphocytes % 15.7 % (15.3-44.8); MCV 93.5 fL (80-100); MPV 8.7 fL (7.6-11.3); RBC Red Blood Cell Count 3.82 M/uL (4.33-5.43)
[2023-03-28 06:41] LABS: Albumin 2.9 g/dL (3.4-5.0); Bilirubin Total 1.1 mg/dL (0.2-1.0); Magnesium 2.2 mg/dL (1.6-2.4); Potassium 3.8 mEq/L (3.5-5.1)
[2023-03-28] MEDS ORDERED: NA CHLORIDE 0.9% 1,000 ML IV SCH (07:21)
[2023-03-28] MEDS: MIDODRINE HCL 5 MG TABLET PO SCH ×3 (07:32→16:43)
[2023-03-28] MEDS: TAMSULOSIN 0.4 MG SR CAP PO SCH ×2 (09:25→23:25)
[2023-03-28] MEDS: ROPINIROLE HCL 1 MG TAB PO SCH ×2 (09:25→23:25)
[2023-03-28] MEDS: AMIODARONE HCL 200 MG TAB PO SCH (09:26)
[2023-03-28] MEDS: AMOX/K CLAV 500 MG TAB PO SCH ×2 (09:26→23:26)
[2023-03-28] MEDS: CARBIDOPA/LEVODOPA 25/100 TAB PO SCH ×3 (09:26→23:26)
[2023-03-28] MEDS: APIXABAN 2.5 MG TABLET PO SCH ×2 (09:26→23:26)
[2023-03-28] MEDS: FINASTERIDE 5 MG TAB PO SCH (09:26)
[2023-03-28 10:21] VITALS: O2SAT 99
[2023-03-28] MEDS ORDERED: ATORVASTATIN 20 MG TAB PO SCH (21:00)
[2023-03-28] MEDS ORDERED: MAGNESIUM HYDROXIDE 8% 30 ML PO ONE (21:00)
--- NOTE | 2023-03-29 04:59 | EKG ---
Test Date: 2023-03-27 Test Time: 16:35:25 Salon Coordinator: MIGUEL MEASUREMENT RESULTS: Intervals: Rate: 62 SD: 222 QRSD: 104 QT: 410 QTc: 416 Westley: P: 27 SD: 222 QRS: -62 T: 67 INTERPRETIVE STATEMENTS: Sinus rhythm with 1st degree AV block Left axis deviation Incomplete right bundle branch block Nonspecific T wave abnormality Abnormal ECG Compared to ECG 03/23/2023 04:55:10 Incomplete right bundle-branch block now present T-wave abnormality now present Sinus bradycardia no longer present ST (T wave) deviation no longer present Prolonged QT interval no longer present Electronically Signed On 03-29-23 04:54:39 CDT by Zaire Zapien
[2023-03-29] MEDS: MIDODRINE HCL 5 MG TABLET PO SCH ×2 (06:20→11:41)
[2023-03-29 06:29] LABS: Potassium 3.9 mEq/L (3.5-5.1)
[2023-03-29] MEDS ORDERED: BISACODYL 10 MG RECTAL SUPP PR ONE (08:00)
--- NOTE | 2023-03-29 08:01 | PN ---
Date of Progress Note: 03/28/2023 Subjective: The patient was seen this morning for followup. No new complaints or problems reported. He was lying in bed, not in distress. Feels much better since he has a Cotton catheter placed. His urine in the Cotton bag is clear yellow. Objective: Vital Signs: Reviewed. HEENT: Unremarkable. Lungs: Clear to auscultation. Heart: Sounds normal. Abdomen: Soft. Bowel sounds normal. No guarding, rigidity, tenderness, distention. Extremities: No leg edema. Laboratory Data: White count 10.5, hemoglobin 11.9, platelets 163. Sodium 139, potassium 3.8, chlor juan 109, bicarb 27, BUN 28, creatinine 1.54, glucose 84. Liver function tests unremarkable. Impression: 1.Acute kidney injury. 2.Benign prostatic hypertrophy with lower urinary tract symptoms. 3.Urinary tract infection. 4.Anemia. Plan: We will go ahead and continue current medication. Continue Cotton catheter. We will give Flom ax 0.4 mg 2 times a day, add finasteride. Plan is to leave Cotton catheter in for few days and then w e will give trial of removal of Cotton catheter a few days later. Details were discussed with the ishan allred. Continue IV fluid, but reduce the rate. Repeat blood work tomorrow morning. Possible dischar ge to go home tomorrow. Physical Therapy to help ambulate the patient. Social Service consultation was requested to help make arrangements for home health care and home physical therapy. Possible discharge tomorrow. CORBY/MODL Voice ID: [id number] Report ID: [id number]
[2023-03-29] MEDS: AMOX/K CLAV 500 MG TAB PO SCH (08:23)
[2023-03-29] MEDS: FINASTERIDE 5 MG TAB PO SCH (08:24)
[2023-03-29] MEDS: AMIODARONE HCL 200 MG TAB PO SCH (08:24)
[2023-03-29] MEDS: ROPINIROLE HCL 1 MG TAB PO SCH (08:24)
[2023-03-29] MEDS: CARBIDOPA/LEVODOPA 25/100 TAB PO SCH (08:24)
[2023-03-29] MEDS: TAMSULOSIN 0.4 MG SR CAP PO SCH (08:24)
[2023-03-29] MEDS: APIXABAN 2.5 MG TABLET PO SCH (08:24)
[2023-03-29 08:47] VITALS: BP 151/70; TEMP 96.9
--- NOTE | 2023-03-30 05:37 | DS ---
Date of Discharge: 03/29/2023 Disposition: Discharged to go home. Physical Examination: HEENT: Unremarkable. Lungs: Clear to auscultation. Heart: Sounds normal. Abdomen: Soft, bowel sounds normal. No guarding, rigidity, tenderness, distention. Extremities: No leg edema. Laboratory Data: Upon admission, sodium 132, potassium 3.9, chloride 102, bicarb 24, BUN 35, creatinine 3.07, glucose 94. Today, sodium 138, potassium 3.9, chloride 109, bicarb 25, BUN 20, creatinine 1, glucose 102. Upon admission, white count was 14.4, hemoglobin 12.3, platelets 178; and yesterday white count 10.5, hemoglobin 11.9, platelets 163. Hospital Course: This is an 82-year-old pleasant male patient, who was admitted to the hospital with complaints of feeling weak, tired, dizzy, and trouble urinating. Please see dictated H and P for more information. Last week, the patient had laparoscopic cholecystectomy for acute cholecystitis and after he went home, he started having above-mentioned problems. He came into office. He was evaluated and was sent to emergency room with concerns about urinary retention and after his evaluation in the ER, Cotton catheter was placed and immediately we were able to drain approximately 1400 cc of urine and then Cotton catheter was clamped and subsequently, we decided to keep the Cotton catheter in place and his urine is clear yellow in nature. He started feeling much better. Physical Therapy was consulted. The patient had acute kidney injury, likely due to post obstructive uropathy and also volume depletion. He was given IV fluid. Renal function was followed on a daily basis, which has improved significantly and he is doing very well with physical therapy, ambulating well. His appetite has improved as well. He was taking tamsulosin 0.4 mg once a day at home since he was discharged after his gallbladder surgery and prior to that he was only taking 3 times a week. During this hospital stay, we have increased the dose of tamsulosin to 0.4 mg 2 times a day and I have also added finasteride. The patient's condition has overall improved and urine culture has not grown anything and he was discharged to go home in stable condition today. The patient had constipation problem yesterday. He got milk of magnesia that did not help, so today I ordered Dulcolax rectal suppository this morning and he did have bowel movement after that, so he was discharged to go home after the constipation problem was resolved. Nurse was advised to change his Cotton catheter back to leg bag and teach patient and how to take care of this Cotton catheter bag and the patient was instructed to come see me next week and at that time we will probably remove his Cotton catheter at office. Discharge Diagnoses: 1. Urinary retention. 2. Acute kidney injury. 3. Benign prostatic hypertrophy with lower urinary tract symptoms. 4. Urinary tract infection. 5. Parkinson disease. 6. Orthostatic hypotension. 7. Paroxysmal atrial fibrillation. 8. Chronic anticoagulation therapy. 9. Anemia, unspecified. 10. Hyperlipidemia. 11. Gastroesophageal reflux disease. 12. Non-alcoholic fatty liver disease. Discharge Medications And Instructions: 1. Continue all prior home medication except change tamsulosin 0.4 mg take 1 capsule by mouth 2 times a day, and start finasteride 5 mg daily. 2. Follow up at my office next week. CORBY/ROSIE Voice ID: [id number] Report ID: [id number] DANE
== END 2023-03-29 11:56 | disposition home health service (06) | DRG 683 ==
LOC: ER 15:57 → ERHOLD 19:22 → 4TH 20:17
PROVIDERS: ADMIT Internal Medicine; ATTEND Internal Medicine
DX: N17.9 Acute kidney failure, unspecified (principal); N39.0 Urinary tract infection, site not specified; G20 Parkinson's disease; E78.5 Hyperlipidemia, unspecified; I48.0 Paroxysmal atrial fibrillation; K21.9 Gastro-esophageal reflux disease without esophagitis; N18.9 Chronic kidney disease, unspecified; D63.1 Anemia in chronic kidney disease; K76.0 Fatty (change of) liver, not elsewhere classified; I95.1 Orthostatic hypotension; N40.1 Benign prostatic hyperplasia with lower urinary tract symptoms; R33.8 Other retention of urine; Z88.1 Allergy status to other antibiotic agents; Z90.49 Acquired absence of other specified parts of digestive tract; Z79.01 Long term (current) use of anticoagulants; Z79.899 Other long term (current) drug therapy
CPT/HCPCS: 36415; 51702; 71045; 80048; 80053; 81001; 83735; 84484; 85025; 93005; 96374; 97116; 97161; 99285; J0696; J7030

== ENCOUNTER 2023-04-06 09:05 | Emergency (ER) | payer OTHER ==
--- OUTSIDE RECORDS SUMMARY | 2023-04-06 09:09 | XMS REPORT | Continuity of Care Document ---
:1940 Author Organization [facility] t Address [address] [place] [address] Care Team Providers Name Role Phone Arun Aguiar MD N.S. Primary Care Physician [phone] Arun Aguiar MD N.SDelvis Attending Clinician [phone] Adria JACKSON, Herbie Khan Attending Clinician [phone] Fernando Graves Attending Clinician Unavailable MD [...] Stop Date Quantity Comments Source History SDOH Denominational Alcohol Frequency Hospita l History SDOH [facility] Alcohol Std Drinks Hospit al History SDOH [facility] Binge [facility] Gender [facility] Alcohol intake 2021-02-01 2021-02-01 Current drinker [facility] 00:00:00 00:00:00 of alcohol Hospital (finding) History of Social 2021-02-01 2021-02-[address] function 00:00:00 00:00:00 Hospital Tobacco use and 2021-01-28 2021-01-28 Smokeless Denominational exposure 00:00:00 00:00:00 tobacco non-user Hospital Alcohol Comment 2021-01-28 2021-01-28 2 glasses/week [facility] 00:00:00 00:00:00 Hospital History of tobacco 1965-12-02 Cigarette Smoker Denominational use 00:00:00 Hospital Sex Assigned At [birth year] [facility] 00:00:00 00:00:00 Hospital Smoking Status Start Date [...] st tablet 03:03: Hospita 21 l glucosamine 0 Yes 1{tbl} Take 1 Me thodi sulfate [...] Take 1,000 [facility] denys, 3-28 Units by vitamin D3, 03:03: mouth. Hosp gretel 1,000 unit 21 l tablet multivitami 2020-0 Yes 1{tbl} Take 1 Me thodi n,tx-iron-m 3-[address] inerals 03:03: mouth. Hospita tablet 21 l glucosamine 2020-0 Yes 1{tbl} Take 1 Me thodi sulfate 500 3-[address] mg tablet 03:03: mouth. Hospit a 21 l cholecalcif 2020-0 Yes 1000U Take 1,000 [facility] denys, 3-28 Units by vitamin D3, 03:03: mouth. Hosp gretel 1,000 unit 21 l tablet multivitami 2020-0 Yes 1{tbl} Take 1 Me thodi n,tx-iron-m 3-[address] inerals 03:03: mouth. Hospita tablet 21 l aspirin 81 202-0 Yes 81mg Chew 81 Meth adonis mg chewable 3-[address] tablet 03:03: Hospita 21 l aspirin 81 2021-0 Yes 81mg Chew 81 Meth adonis mg chewable 3-[address] tablet 03:03: Hospita 21 l cephalexin 2021-0 Yes [facility] (KEFLEX) 3-24 st 500 MG 00:00: Hospita capsule 00 l traMADoL 2020-0 Yes [facility] (ULTRAM) 50 3-24 st mg tablet 00:00: Hospita 00 l cephalexin 2020-0 Yes [facility] (KEFLEX) 3-24 st 500 MG 00:00: Hospita capsule 00 l traMADoL 2021-0 Yes [facility] (ULTRAM) 50 3-24 st mg tablet 00:00: Hospita 00 l cephalexin 2021-0 Yes [facility] (KEFLEX) 3-24 st 500 MG 00:00: Hospita capsule 00 l traMADoL 2020-0 Yes [facility] (ULTRAM) 50 3-24 st mg tablet 00:00: Hospita 00 l traMADoL 2021-0 Yes [facility] (ULTRAM) 50 3-24 st mg tablet 00:00: Hospita 00 l cephalexin 2020-0 Yes [facility] (KEFLEX) 3-24 st 500 MG 00:00: Hospita capsule 00 l carbidopa-l 2020-0 Yes 1{tbl} Q.23223048 Take 1 [facility] evodopa 3-10 [id number] tablet by s t (SINEMET) 00:00: 3D mouth 3 Hospi ta 25-100 mg 00 (three) l per tablet times a day. carbidopa-l 202-0 Yes 1{tbl} Q.[id number] Take 1 [facility] evodopa 3-10 [id number] tablet by s t (SINEMET) 00:00: 3D mouth 3 Hospi ta 25-100 mg 00 (three) l per tablet times a day. carbidopa-l 202-0 Yes 1{tbl} Q.95001620 Take 1 [facility] evodopa 3-10 [id number] tablet by s t (SINEMET) 00:00: 3D mouth 3 Hospi ta 25-100 mg 00 (three) l per tablet times a day. carbidopa-l 2020-0 Yes 1{tbl} Q.[id number] Take 1 [facility] evodopa 3-10 [id number] tablet by s t (SINEMET) 00:00: 3D mouth 3 Hospi ta 25-100 mg 00 (three) l per tablet times a day. promethazin 2020-0 Yes Method i e 3-03 st (PHENERGAN) 00:00: Hospit a 25 MG 00 l tablet promethazin 2020-0 Yes TAKE 1 Meth adonis [...] every Hospita tablet 00 morning. l montelukast 1-0 Yes 10mg QD Take 10 mg Method[facility] [...] Source Systolic blood 2021-01-29 15:01:00 140 mm[Hg] [facility] pressure Diastolic blood 2021-01-29 15:01:00 63 mm[Hg] [facility] pressure Heart rate 2021-01-29 15:01:00 64 /min [facility] Body temperature 2021-01-29 15:01:00 36.56 [facility] Respiratory rate 2021-01-29 15:01:00 15 /min [facility] Oxygen saturation in 2021-01-29 15:01:00 100 /min [facility] Arterial blood by Pulse oximetry Body height 2021-01-29 12:40:00 177.8 cm [facility] Body weight 2021-01-29 12:40:00 109.799 kg [facility] BMI 2021-01-29 12:40:00 34.73 kg/m2 [facility] Procedures Procedure Date / Time Performed Performing Clinician Sourc e RECONSTRUCTION, EYELID 2021-01-29 13:32:00 [facility] 2021-01-26 15:20:00 [facility]-19 QUALITATIVE 2021-01-04 18:35:00 [facility] RT-PCR COVID-19 QUALITATIVE 2020-12-14 16:15:00 [facility] RT-PCR Plan of Care Planned Activity Planned Date Details Comments Source Future Scheduled 2023-02-06 COVID-19 VACCINE (#1) [facility] Test 03:46:08 [code = COVID-19 VACCINE (#1)] Future Scheduled 2023-02-06 SHINGLES VACCINES (1 Met [facility] Test 03:46:08 of 2) [code = SHINGLES VACCINES (1 of 2)] Future Scheduled 2023-02-06 65+ [facility]AL [facility] 03:46:08 VACCINE (1 - PCV) [code = 65+ PNEUMOCOCCAL VACCINE (1 - PCV)] Future Scheduled 2023-02-06 INFLUENZA VACCINE Method [facility] Hospital Test 03:46:08 [code = INFLUENZA VACCINE] Future Scheduled 2023-02-06 COVID-19 VACCINE (#1) [facility] Test 03:46:08 [code = COVID-19 VACCINE (#1)] Future Scheduled 2023-02-06 [facility]INES ([facility] 03:46:08 of 2) [code = SHINGLES VACCINES (1 of 2)] Future Scheduled 2023-02-06 65+ PNEUMOCOCCAL [facility] Test 03:46:08 VACCINE (1 - PCV) [code = 65+ PNEUMOCOCCAL VACCINE (1 - PCV)] Future Scheduled 2023-02-06 INFLUENZA VACCINE [facility] Test 03:46:08 [code = INFLUENZA VACCINE] Future Scheduled 2023-02-06 COVID-19 VACCINE (#1) [facility] Test 03:46:08 [code = COVID-19 VACCINE (#1)] Future Scheduled 2023-02-06 SHINGLES VACCINES (1 Met [facility] Test 03:46:08 of 2) [code = SHINGLES VACCINES (1 of 2)] Future Scheduled 2023-02-06 65+ PNEUMOCOCCAL [facility] Test 03:46:08 VACCINE (1 - PCV) [code = 65+ PNEUMOCOCCAL VACCINE (1 - PCV)] Future Scheduled 2023-02-06 INFLUENZA VACCINE [facility] Test 03:46:08 [code = INFLUENZA VACCINE] Future Scheduled 2021-12-07 COVID-19 VACCINE (1) Met [facility] Test 19:38:07 [code = COVID-19 VACCINE (1)] Future Scheduled 2021-12-07 [facility]IN[facility] 19:38:07 [code = SHINGLES VACCINES [...] Type Clinicians Facility Department ID 2021-01-29 2021-01-[address]1 [id number] [facility] 05:46:00 23:59:00 Encounter Arun 36963.1.1 [facility]S. 3.430.2.7 Hospit a .3.597971 l .8 2021-01-29 2021-01-29 Anesthesia Herbie Covington Khan 1.2.840 .1 [id number] [facility] 08:32:00 09:33:00 Event Fernando Graves 56076.1.[address] 3.430.2.7 Hospit a .3.863958 l .8 2021-01-29 2021-01-29 Surgery Soparkar, 1.2.840.1 [id number] [id number] [facility] 07:30:00 08:15:[address] [place]. 3.430.2.7 Hospit a .3.569708 l .8 2021-01-29 2021-01-29 Travel 1.2.840.1 1.2.899.069 3558 [id number] [facility] 00:00:00 00:00:[address] 3.430.2.7 0.2.7.3.698 Ho spita .3.627321 084.8 l .8 2021-01-26 2021-01-26 Lab Soparkar, 1.2.840.1 [id number] [id number] [facility] 10:11:57 10:16:[address] [place]S. 3.430.2.7 Hospit a .3.341038 l .8 2021-01-26 2021-01-26 Travel 1.2.840.1 1.2.520.962 5539 [id number] [facility] 00:00:00 00:00:[address] 3.430.2.7 0.2.7.3.698 Ho spita .3.869502 084.8 l .8 2021-01-04 2021-01-04 Lab Soparkar, 1.2.840.1 [id number] [id number] [facility] 12:32:25 12:37:[address] [place]. 3.430.2.7 Hospit a .3.413850 l .8 2021-01-04 2021-01-04 Travel 1.2.840.1 1.2.732.950 7503 [id number] [facility] 00:00:00 00:00:[address] 3.430.2.7 0.2.7.3.698 Ho spita .3.315790 084.8 l .8 2020-12-14 2020-12-14 Lab Soparkar, 1.2.840.1 [id number] 2099 [id number] [facility] 10:04:59 10:19:[address] N.S. 3.430.2.7 Hospit a .3.641247 l .8 2020-12-14 2020-12-14 Travel 1.2.840.1 1.2.639.388 3535 [id number] [facility] 00:00:00 00:00:[address] 3.430.2.7 0.2.7.3.698 Ho spita .3.503438 084.8 l .8 Results Test Description Test Time Test Comments Results Result Comments Source COVID-19 qualitative PCR 2021-01-27 00:21:42 Test Item Value Reference Range Interpretation Comme nts Interpretation (test code = Negative results do not 8218064) preclude 2019-nCoV infection and should not be used as the sole basis for treatment or other patient management decisions. Negative results must be combined with clinical observations, patient history, and epidemiological information. COVID-19 qualitative RT-PCR Not-Detected Not-Detected result (test code = 92498-9) COVID-19 qualitative RT-PCR See link below for PDF Lab Case Number: (test code = 7070) Report [id number] Layla Oneill [id number] (COVID-19) RNA [Presence] in Respiratory specimen by DONNA with probe [id number] 19:21:11 Test Item Value Reference Range Interpretation Comments SARS-CoV-2 (COVID-19) RNA Not detected Not-Detected [Presence] in Respiratory specimen by DONNA with probe detection (test code = 37414-3) KHOURY SABIANIST [id number] (COVID-19) RNA [Presence] in Respiratory specimen by DONNA with probe [id number] 19:59:22 Test Item Value Reference Range Interpretation Comments SARS-CoV-2 (COVID-19) RNA Not detected Not-Detected [Presence] in Respiratory specimen by DONNA with probe detection (test code = 62794-8) PENG ERICKSONSARS-CoV-2 (COVID-19) RNA [Presence] in Respiratory specimen by DONNA with probe [id number] 20:41:07 Test Item Value Reference Range Interpretation Comments SARS-CoV-2 (COVID-19) RNA [Presence] Detected Not-Detected in Respiratory specimen by DONNA with probe detection (test code = 49889-6) PENG ERICKSON
[2023-04-06 10:29] LABS: Urine Bilirubin Negative (Negative); Urine Blood Trace-intact (Negative); Urine Clarity Clear (Clear); Urine Color Yellow (Yellow); Urine Glucose Negative (Negative); Urine Protein Negative (Negative); Urine Urobilinogen 0.2 mg/dL (0.2-1.0); Urine pH 6.5 (5.0-7.0)
[2023-04-06 10:43] LABS: Urine Bacteria None Seen /HPF (<20); Urine Crystals Unidentified Few /HPF (None Seen); Urine Mucus Slight /HPF (None Seen)
--- NOTE | 2023-04-06 10:54 | EDPHYS ---
Physician Documentation [facility] Name: Good Pinzon Age: 82 yrs Sex: Male : 1940 Arrival Date: 04/06/2023 Time: 09:05 Bed 14 Private MD: Valerie Bray C ED Physician Bk Quiroz HPI: 04/06 09:25 This 82 yrs old Male presents to ER via Wheelchair with complaints of Urinary Retention.ms3 09:25 82-year-old male with past medical history of atrial fibrillation, hypertension, ms3 Parkinson's presents for inability to urinate. Patient states he had a Cotton catheter removed at [address] Bray's office status post cholecystectomy by Dr. Henry. Patient states his current discomfort is a 7/10 described as pressure and located in suprapubic regions. Patient denies alleviating or inciting factors. Historical: - Allergies: 09:19 Sulfa (Sulfonamide Antibiotics); iw - Home Meds: 09:19 amiodarone 200 mg Oral tab 1 tab 2 times per day [Active]; atorvastatin 20 mg Oral tab iw 2 tabs once daily [Active]; carbidopa-levodopa 50-200 mg Oral TbER 1 tab 3 times per day [Active]; Eliquis 5 mg Oral tab 1 tab 2 times per day [Active]; famotidine 40 mg Oral tablet every day at bedtime [Active]; midodrine 2.5 mg Oral tab 1 tab 3 times per day [Active]; Restasis 0.05 % ophthalmic (eye) dpet 1 drop every 12 hours [Active]; ropinirole 1 mg Oral tablet 1 tab 3 times per day [Active]; tamsulosin 0.4 mg Oral cap 1 cap 3 times a week [Active]; - PMHx: 09:19 Atrial fibrillation; Hypertensive disorder; Parkinson's disease; iw - PSHx: 09:19 Cholecystectomy; iw - Immunization history:: Adult Immunizations up to date. - Social history:: Patient/guardian denies using alcohol, street drugs, IV drugs, caffeine, over the counter diet medications, tobacco products, Smoking status: Patient denies any tobacco usage or history of. - Family history:: not pertinent, pertinent for. ROS: 09:25 Constitutional: Negative for fever, and chills. Neck: Negative for injury, pain, and ms3 swelling, Cardiovascular: Negative for chest pain, and palpitations. Respiratory: Negative for shortness of breath, cough, wheezing, and pleuritic chest pain. 09:25 Abdomen/GI: Negative for abdominal pain, nausea, vomiting, diarrhea, and constipation. 09:25 Abdomen/GI: Positive for 09:25 : Positive for urinary retention. 09:25 All other systems are negative. Exam: 09:25 Constitutional: This is a well developed, well nourished patient who is awake, alert, ms3 and in no acute distress. Head/Face: Normocephalic, atraumatic. Neck: Trachea midline, no cervical lymphadenopathy. Supple, full range of motion without nuchal rigidity, or vertebral point tenderness. No Meningismus. Chest/axilla: Normal chest wall appearance and motion. Nontender with no deformity. Cardiovascular: Regular rate and rhythm with a normal S1 and S2. No gallops, murmurs, or rubs. Normal PMI, no JVD. No pulse deficits. Respiratory: Lungs have equal breath sounds bilaterally, clear to auscultation and percussion. No rales, rhonchi or wheezes noted. No increased work of breathing, no retractions or nasal flaring. Abdomen/GI: Soft, non-tender, with normal bowel sounds. No distension or tympany. No guarding or rebound. No evidence of tenderness throughout. 09:25 : Bladder: tenderness, that is moderate. Vital Signs: 09:16 Pulse 54; Resp 18; Temp 98.7; Pulse Ox 99% on R/A; Weight 104.33 kg; Height 5 ft. 10 iw in. ; 09:22 BP 97 / 48; Pulse 54; Resp 16; Temp 97.8; Pulse Ox 98% on R/A; iw 10:00 BP 163 / 84; Pulse 56; Resp 18; Pulse Ox 98% on R/A; db 11:00 BP 166 / 81; Pulse 58; Resp 18; Pulse Ox 99% on R/A; db 09:16 Body Mass Index 33.00 (104.33 kg, 177.8 cm) iw MDM: 09:21 Patient medically screened. ms3 09:25 Differential diagnosis: urinary retention. ms3 04/06 10:30 Order name: Urinalysis w/ reflexes; Complete Time: 10:52 EDMS 04/06 09:22 Order name: Cotton; Complete Time: 10:05 ms3 04/06 09:22 Order name: Cotton Leg Bag; Complete Time: 11:18 ms3 Administered Medications: No medications were administered Disposition Summary: 04/06/23 10:54 Discharge Ordered Location: Home ms3 Condition: Stable ms3 Diagnosis - Retention of urine, unspecified ms3 Followup: ms3 - With: Valerie Bray MD - When: 2 - 3 days - Reason: Re-evaluation by your physician Followup: ms3 - With: Mina Bliss MD - When: 1 - 2 days - Reason: Recheck today's complaints Discharge Instructions: - Discharge Summary Sheet ms3 - Acute Urinary Retention, Male ms3 Forms: - Medication Reconciliation Form ms3 - Thank You Letter ms3 - Antibiotic Education ms3 - Prescription Opioid Use ms3 Signatures: Dispatcher [employer] EDEdilia Villela RN RN iw Bk Quiroz DO DO ms3 Aurora Wolff RN RN db Corrections: (The following items were deleted from the chart) 10:37 09:22 Urinalysis+U.LAB.BRZ ordered. EDMS EDMS
--- NOTE | 2023-04-06 10:54 | ER ---
Nurse's Notes [facility] Name: Good Pinzon Age: 82 yrs Sex: Male : 1940 Arrival Date: 04/06/2023 Time: 09:05 Bed 14 Private MD: Valerie Bray C Diagnosis: Retention of urine, unspecified Presentation: 04/06 09:16 Chief complaint: Patient states: pt states unable to urinate since 430 yesterday. iw Coronavirus screen: Client denies travel out of the [place] in the last 14 days. Ebola Screen: No symptoms or risks identified at this time. Initial Sepsis Screen: Does the patient meet any 2 criteria? No. Patient's initial sepsis screen is negative. Risk Assessment: Do you want to hurt yourself or someone else? Patient reports no desire to harm self or others. Onset of symptoms. 09:16 Method Of Arrival: Wheelchair iw 09:16 Acuity: ISMAEL 3 iw 11:26 Initial Sepsis Screen: Does the patient have a suspected source of infection? No. db Patient's initial sepsis screen is negative. Triage Assessment: 09:21 General: Appears in no apparent distress. Pain:. EENT: No deficits noted. Neuro: No iw deficits noted. Cardiovascular: No deficits noted. Respiratory: No deficits noted. GI: No deficits noted. : No deficits noted. Derm: No deficits noted. Musculoskeletal: No deficits noted. Historical: - Allergies: 09:19 Sulfa (Sulfonamide Antibiotics); iw - Home Meds: 09:19 amiodarone 200 mg Oral tab 1 tab 2 times per day [Active]; atorvastatin 20 mg Oral tab iw 2 tabs once daily [Active]; carbidopa-levodopa 50-200 mg Oral TbER 1 tab 3 times per day [Active]; Eliquis 5 mg Oral tab 1 tab 2 times per day [Active]; famotidine 40 mg Oral tablet every day at bedtime [Active]; midodrine 2.5 mg Oral tab 1 tab 3 times per day [Active]; Restasis 0.05 % ophthalmic (eye) dpet 1 drop every 12 hours [Active]; ropinirole 1 mg Oral tablet 1 tab 3 times per day [Active]; tamsulosin 0.4 mg Oral cap 1 cap 3 times a week [Active]; - PMHx: 09:19 Atrial fibrillation; Hypertensive disorder; Parkinson's disease; iw - PSHx: 09:19 Cholecystectomy; iw - Immunization history:: Adult Immunizations up to date. - Social history:: Patient/guardian denies using alcohol, street drugs, IV drugs, caffeine, over the counter diet medications, tobacco products, Smoking status: Patient denies any tobacco usage or history of. - Family history:: not pertinent, pertinent for. Screenin:18 [facility] ED Fall Risk Assessment (Adult) History of falling in the last 3 months, db including since admission No falls in past 3 months (0 pts) Confusion or Disorientation No (0 pts) Intoxicated or Sedated No (0 pts) Impaired Gait No (0 pts) Mobility Assist Device Used No (0 pt) Altered Elimination No (0 pt) Score/Fall Risk Level 0 - 2 = Low Risk Oriented to surroundings, Maintained a safe environment. Abuse screen: Denies threats or abuse. Denies injuries from another. Nutritional screening: No deficits noted. Tuberculosis screening: No symptoms or risk factors identified. Assessment: 10:11 Reassessment: Patient appears in no apparent distress at this time. Patient and/or db family updated on plan of care and expected duration. Pain level reassessed. Patient is alert, oriented x 3, equal unlabored respirations, skin warm/dry/pink. kim removed yesterday at dr office and today unable to void. General: Appears in no apparent distress. comfortable, Behavior is calm, cooperative. Pain: Complains of pain in abdomen. Neuro: Level of Consciousness is awake, alert, obeys commands, Oriented to person, place, time, situation. Cardiovascular: No deficits noted. Respiratory: No deficits noted. Airway is patent Respiratory effort is even, unlabored, Respiratory pattern is regular, symmetrical. 11:18 Reassessment: Patient appears in no apparent distress at this time. Patient and/or db family updated on plan of care and expected duration. Pain level reassessed. Patient is alert, oriented x 3, equal unlabored respirations, skin warm/dry/pink. patient given leg bag at discharge. Vital Signs: 09:16 Pulse 54; Resp 18; Temp 98.7; Pulse Ox 99% on R/A; Weight 104.33 kg; Height 5 ft. 10 iw in. ; 09:22 BP 97 / 48; Pulse 54; Resp 16; Temp 97.8; Pulse Ox 98% on R/A; iw 10:00 BP 163 / 84; Pulse 56; Resp 18; Pulse Ox 98% on R/A; db 11:00 BP 166 / 81; Pulse 58; Resp 18; Pulse Ox 99% on R/A; db 09:16 Body Mass Index 33.00 (104.33 kg, 177.8 cm) iw ED Course: 09:09 Patient arrived in ED. am2 09:09 Valerie Bray MD is Private Physician. am2 09:15 Bk Quiroz DO is Attending Physician. ms3 09:19 Triage completed. iw 09:23 Arm band placed on right wrist. iw 10:03 Aurora Wolff, RN is Primary Nurse. db 10:52 Valerie Bray MD is Referral Physician. ms3 10:56 Mina Bliss MD is Referral Physician. ms3 11:21 Patient has correct armband on for positive identification. Bed in low position. Call db light in reach. Side rails up X 1. Pulse ox on. NIBP on. 11:21 No provider procedures requiring assistance completed. Patient did not have IV access db during this emergency room visit. Administered Medications: No medications were administered Medication: 11:21 VIS not applicable for this client. db Outcome: 10:54 Discharge ordered by . ms3 11:21 Discharged to home ambulatory, with family. db 11:21 Condition: stable 11:21 Discharge instructions given to patient, family, Instructed on discharge instructions, follow up and referral plans. 11:26 Patient left the ED. db Signatures: Edilia Kelley, RN RN iw Juliana Perales am2 Bk Quiroz DO DO ms3 Aurora Wolff, RN RN db Becca Howard 6 Corrections: (The following items were deleted from the chart) 10:37 10:13 Urinalysis+U.LAB.BRZ drawn and sent. bc6 EDMS
[2023-04-06 11:33] VITALS: TEMP 97.8
[2023-04-06 11:35] VITALS: BP 166/81; O2SAT 99
== END 2023-04-06 11:26 | disposition home or self-care (01) ==
LOC: ER 09:05
DX: R33.9 Retention of urine, unspecified (principal); Z90.49 Acquired absence of other specified parts of digestive tract; G20 Parkinson's disease; Z88.2 Allergy status to sulfonamides
CPT/HCPCS: 81001; 99283

== ENCOUNTER 2023-04-16 17:39 | Inpatient (IN) | payer OTHER ==
--- OUTSIDE RECORDS SUMMARY | 2023-04-16 17:42 | XMS REPORT | Continuity of Care Document ---
:1940 Author Organization [facility] t Address [address] [place] [address] Care Team Providers Name Role Phone Arun Aguiar MD N.S. Primary Care Physician [phone] Arun Aguiar MD N.SDelvis Attending Clinician [phone] Adria JACKSON, Herbie Khan Attending Clinician [phone] Fernando Graves Attending Clinician Unavailable MD [...] Stop Date Quantity Comments Source History SDOH [facility] Frequency Hospita l History SDOH [facility] Std Drinks Hospit al History [facility] Alcohol intake 2021-02-01 2021-02-01 Current drinker [facility] 00:00:00 00:00:00 of alcohol Hospital (finding) History of Social 2021-02-01 2021-02-[address] function 00:00:00 00:00:00 Hospital Tobacco use and 2021-01-28 2021-01-28 Smokeless [facility] exposure 00:00:00 00:00:00 tobacco non-user Hospital Alcohol Comment 2021-01-28 2021-01-28 2 glasses/week [facility] 00:00:00 00:00:00 Hospital History of tobacco 1965-12-02 Cigarette Smoker [facility] use 00:00:00 Hospital Sex Assigned At [birth year] [facility] 00:[facility] 00:[facility]:00 Hospital Smoking Status Start Date [...] st tablet 03:03: Hospita 21 l glucosamine 2021-0 Yes 1{tbl} Take 1 Me thodi sulfate 500 3-[address] mg tablet 03:03: mouth. Hospit a 21 l cholecalcif 2021-0 Yes 1000U Take 1,000 [facility] denys, 3-[address] vitamin D3, 03:03: mouth. Hosp gretel 1,000 unit 21 l tablet multivitami 2021-0 Yes 1{tbl} Take 1 Me thodi n,tx-iron-m 3-[address] inerals 03:03: mouth. Hospita tablet 21 l aspirin 81 2021-0 Yes 81mg Chew 81 Meth adonis mg chewable 3-[address] tablet 03:03: Hospita 21 l glucosamine 2021-0 Yes 1{tbl} Take 1 Me thodi sulfate 500 3-[address] mg tablet 03:03: mouth. Hospit a 21 l cholecalcif 2021-0 Yes 1000U Take 1,000 [facility] denys, 3-28 Units by vitamin D3, 03:03: mouth. Hosp gretel 1,000 unit 21 l tablet multivitami 2021-0 Yes 1{tbl} Take 1 Me thodi n,tx-iron-m 3-[address] inerals 03:03: mouth. Hospita tablet 21 l glucosamine 2021-0 Yes 1{tbl} Take 1 Me thodi sulfate 500 3-[address] mg tablet 03:03: mouth. Hospit a 21 l cholecalcif 2021-0 Yes 1000U Take 1,000 [facility] denys, 3-28 Units by vitamin D3, 03:03: mouth. Hosp gretel 1,000 unit 21 l tablet multivitami 2021-0 Yes 1{tbl} Take 1 Me thodi n,tx-iron-m 3-[address] inerals 03:03: mouth. Hospita tablet 21 l aspirin 81 2021-0 Yes 81mg [...] capsule 00 l carbidopa-l 2020-0 Yes 1{tbl} Q.[id number] Take 1 [facility] evodopa 3-10 [id number] tablet by s t (SINEMET) 00:00: 3D mouth 3 Hospi ta 25-100 mg 00 (three) l per tablet times a day. carbidopa-l 2020-0 Yes 1{tbl} Q.[id number] Take 1 [facility] evodopa 3-10 [id number] tablet by s t (SINEMET) 00:00: 3D mouth 3 Hospi ta 25-100 mg 00 (three) l per tablet times a day. carbidopa-l 2020-0 Yes 1{tbl} Q.[id number] Take 1 [facility] evodopa 3-10 [id number] tablet by s t (SINEMET) 00:00: 3D mouth 3 Hospi ta 25-100 mg 00 (three) l per tablet times a day. carbidopa-l 2020-0 Yes 1{tbl} Q.[id number] Take 1 [facility] evodopa 3-10 [id number] tablet by s t (SINEMET) 00:00: 3D mouth 3 Hospi ta 25-100 mg 00 (three) l per tablet times a day. carbidopa-l 2020-0 Yes 1{tbl} Q.[id number] Take 1 [facility] evodopa 3-10 [id number] tablet by s t (SINEMET) 00:00: 3D [...] pressure Diastolic blood 2021-01-29 15:01:00 63 mm[Hg] [facility] pressure Heart rate 2021-01-29 15:01:00 64 /min [facility] Body temperature 2021-01-29 15:01:00 36.56 [facility] Respiratory rate 2021-01-29 15:01:00 15 /min Meth [facility] Oxygen saturation in 2021-01-29 15:01:00 100 /min [facility] Arterial blood by Pulse oximetry Body height 2021-01-29 12:40:00 177.8 cm [facility] Body weight 2021-01-29 12:40:00 109.799 kg [facility] BMI 2021-01-29 12:40:00 34.73 kg/m2 [facility] Procedures Procedure Date / Time Performed Performing Clinician Sourc e RECONSTRUCTION, EYELID 2021-01-29 13:32:00 [facility]Arun holt [facility] COVID-19 QUALITATIVE 2021-01-26 15:20[facility] 2021-01-04 18:35:00 [facility] 2020-12-14 16:15:00 [facility] Plan of Care Planned Activity Planned Date Details Comments Source Future Scheduled 2023-02-06 COVID-19 VACCINE (#1) [facility] Test 03:46:08 [code = COVID-19 VACCINE (#1)] Future Scheduled 2023-02-06 SHINGLES VACCINES (1 Met [facility] Test 03:46:08 of 2) [code = SHINGLES VACCINES (1 of 2)] Future Scheduled 2023-02-06 65+ [facility]AL [facility] 03:46:08 VACCINE (1 - PCV) [code = 65+ PNEUMOCOCCAL VACCINE (1 - PCV)] Future Scheduled 2023-02-06 INFLUENZA VACCINE Method [facility] Test 03:46:08 [code = INFLUENZA VACCINE] Future Scheduled 2023-02-06 COVID-19 VACCINE (#1) [facility] Test 03:46:08 [code = COVID-19 VACCINE (#1)] Future Scheduled 2023-02-06 SHINGLES VACCINES (1 Met [facility] Test 03:46:08 of 2) [code = SHINGLES VACCINES (1 of 2)] Future Scheduled 2023-02-06 65+ [facility]CCAL [facility] Test 03:46:08 VACCINE (1 - PCV) [code = 65+ PNEUMOCOCCAL VACCINE (1 - PCV)] Future Scheduled 2023-02-06 INFLUENZA VACCINE [facility] Test 03:46:08 [code = INFLUENZA VACCINE] Future Scheduled 2023-02-06 [facility] 03:46:08 [code = COVID-19 VACCINE (#1)] Future Scheduled 2023-02-06 SHINGLES VACCINES (1 Met [facility] Test 03:46:08 of 2) [code = SHINGLES VACCINES (1 of 2)] Future Scheduled 2023-02-06 65+ [facility]UMOCOCCAL [facility] Test 03:46:08 VACCINE (1 - PCV) [code = 65+ PNEUMOCOCCAL VACCINE (1 - PCV)] Future Scheduled 2023-02-06 INFLUENZA VACCINE [facility] Test 03:46:08 [code = INFLUENZA VACCINE] Future Scheduled 2023-02-06 COVID-19 [facility]INE (#[facility] 03:46:08 [code = COVID-19 VACCINE (#1)] Future Scheduled 2023-02-06 SHINGLES VACCINES (1 [facility] Test 03:46:08 of 2) [code = SHINGLES VACCINES (1 of 2)] Future Scheduled 2023-02-06 65+ PNEUMOCOCCAL [facility] Test 03:46:08 VACCINE (1 - PCV) [code = 65+ PNEUMOCOCCAL VACCINE (1 - PCV)] Future Scheduled 2023-02-06 INFLUENZA VACCINE [facility] Test 03:46:08 [code = INFLUENZA VACCINE] Future Scheduled 2021-12-07 COVID-19 VACCINE (1) [facility] Test 19:38:07 [code = COVID-19 VACCINE (1)] Future Scheduled 2021-12-07 SHINGLES [facility]ACCINES (#1) [facility] 19:38:07 [code = SHINGLES VACCINES [...] Type Clinicians Facility Department ID 2021-01-29 2021-01-29 Hospital [facility], 1.2.840.1 [id number] [facility] 05:46:00 23:59:00 Encounter Arun [id number] 3.430.2.7 Hospit a .3.973415 l .8 2021-01-29 2021-01-29 Anesthesia Herbie Covington 1.2.840 .1 [id number] [facility] 08:32:00 09:33:00 Event Fernando Graves 10316.1.[address] 3.430.2.7 Hospit a .3.118857 l .8 2021-01-29 2021-01-29 Surgery [facility]yanet, 1.2.840.1 [id number] [id number] [facility] 07:30:00 08:15:[address] 3.430.2.7 Hospit a .3.419073 l .8 2021-01-29 2021-01-29 Travel 1.2.840.1 1.2.082.739 [id number] [facility] 00:00:00 00:00:[address] 3.430.2.7 0.2.7.3.698 Ho spita .3.202008 084.8 l .8 2021-01-26 2021-01-26 [facility], 1.2.840.1 [id number] 2099 [id number] Methodi 10:11:57 10:16:[address] 3.430.2.7 Hospit a .3.629426 l .8 2021-01-26 2021-01-26 Travel 1.2.840.1 1.2.854.626 1023 [id number] [facility] 00:00:00 00:00:[address] 3.430.2.7 0.2.7.3.698 Ho spita .3.277228 084.8 l .8 2021-01-04 2021-01-04 Lab Cosme, 1.2.840.1 [id number] 2099 [id number] [facility] 12:32:25 12:37:[address] 3.430.2.7 Hospit a .3.999164 l .8 2021-01-04 2021-01-04 Travel 1.2.840.1 1.2.758.887 5460 [id number] [facility] 00:00:00 00:00:[address] 3.430.2.7 0.2.7.3.698 Ho spita .3.829961 084.8 l .8 2020-12-14 2020-12-14 Lab Cosme, 1.2.840.1 [id number] 2099 [id number] [facility] 10:04:59 10:19:[address] 3.430.2.7 Hospit a .3.534206 l .8 2020-12-14 2020-12-14 Travel 1.2.840.1 1.2.883.465 4317 [id number] [facility] 00:00:00 00:00:[address] 3.430.2.7 0.2.7.3.698 Ho spita .3.111213 084.8 l .8 Results Test Description Test Time Test Comments Results Result Comments Source COVID-19 qualitative PCR 2021-01-27 00:21:42 Test Item Value Reference Range Interpretation Comme nts Interpretation (test code = Negative results do not [id number]) preclude 2019-nCoV infection and should not be used as the sole basis for treatment or other patient management decisions. Negative results must be combined with clinical observations, patient history, and epidemiological information. COVID-19 qualitative RT-PCR Not-Detected Not-Detected result (test code = 19326-4) COVID-19 qualitative RT-PCR See link below for PDF Lab Case Number: (test code = 7070) Report [id number] 001 [facility] [id number] (COVID-19) RNA [Presence] in Respiratory specimen by DONNA with probe [id number] 19:21:11 Test Item Value Reference Range Interpretation Comments SARS-CoV-2 (COVID-19) RNA Not detected Not-Detected [Presence] in Respiratory specimen by DONNA with probe detection (test code = 64767-6) PENG ERICKSONSARS-CoV-2 (COVID-19) RNA [Presence] in Respiratory specimen by DONNA with probe [id number] 19:59:22 Test Item Value Reference Range Interpretation Comments SARS-CoV-2 (COVID-19) RNA Not detected Not-Detected [Presence] in Respiratory specimen by DONNA with probe detection (test code = 13086-1) PENG ERICKSONSARS-CoV-2 (COVID-19) RNA [Presence] in Respiratory specimen by DONNA with probe [id number] 20:41:07 Test Item Value Reference Range Interpretation Comments SARS-CoV-2 (COVID-19) RNA [Presence] Detected Not-Detected in Respiratory specimen by DONNA with probe detection (test code = 91596-6) PENG ERICKSON
[2023-04-16] MEDS ORDERED: NA CHLORIDE 0.9% 500 ML ONE ×2 (17:59→19:44)
[2023-04-16 18:53] LABS: Absolute Lymphocytes (CBC) 0.5 K/uL (0.7-4.9); Hematocrit 32.4 % (39.6-49.0); Lymphocytes % 4.5 % (15.3-44.8); MCV 92.3 fL (80-100); MPV 9.1 fL (7.6-11.3); RBC Red Blood Cell Count 3.51 M/uL (4.33-5.43)
[2023-04-16 18:56] LABS: Protime INR 2.3
[2023-04-16 19:04] LABS: AST/SGOT 18 U/L (15-37); Albumin 2.8 g/dL (3.4-5.0); Alkaline Phosphatase 69 U/L (45-117); BUN Blood Urea Nitrogen 24 mg/dL (7-18); Bicarbonate 22 mEq/L (21-32); Bilirubin Total 1.2 mg/dL (0.2-1.0); Glomerular Filtration Rate 37 ml/min (=/>90); Glucose Level 96 mg/dL (74-106); Potassium 4.4 mEq/L (3.5-5.1); Protein, Total 6.4 g/dL (6.4-8.2); Sodium Level 136 mEq/L (136-145)
[2023-04-16] MEDS ORDERED: CEFTRIAXONE 1000 MG/VIAL ONE (19:15)
[2023-04-16] MEDS ORDERED: NA CHLORIDE 0.9% 50 ML ONE (19:15)
[2023-04-16 19:22] LABS: Specific Gravity 1.014 (1.005-1.030); Urine Bacteria 20-50 /HPF (<20); Urine Bilirubin NEGATIVE (Negative); Urine Blood 3+ (Negative); Urine Clarity Extremely Turbid (Clear); Urine Color Light-Orange (Yellow); Urine Glucose NEGATIVE (Negative); Urine Mucus Slight /HPF (None Seen); Urine Protein 3+ (Negative); Urine RBC >50 /HPF (None Seen); Urine Urobilinogen Normal (Normal); Urine WBC Clump Many /HPF (None Seen); Urine pH 5.5 (5.0-7.0)
--- NOTE | 2023-04-16 19:24 | RAD REPORT ---
EXAM DESCRIPTION: [place] Single View04/16/2023 7:07 pm CLINICAL HISTORY: Fever COMPARISON: 2021 FINDINGS: The lungs appear clear of acute infiltrate. The heart is normal size IMPRESSION: No acute abnormalities displayed
[2023-04-16 19:25] LABS: ALT/SGPT < 10 U/L (16-61)
--- NOTE | 2023-04-16 19:45 | ER ---
Nurse's Notes [facility] Name: Good Pinzon Age: 82 yrs Sex: Male : 1940 Arrival Date: 04/16/2023 Time: 17:39 Bed 14 Private MD: Diagnosis: UTI/ Urinary tract infection, site not specified;Severe sepsis without septic shock Presentation: 04/16 17:43 Chief complaint: EMS states: BACK PAIN. Coronavirus screen: At this time, the client bp does not indicate any symptoms associated with coronavirus-19. Ebola Screen: No symptoms or risks identified at this time. Initial Sepsis Screen: Does the patient meet any 2 criteria? Temp <36.0*C (96.8*F)) or > 38.3*C (100.9*F). No. Patient's initial sepsis screen is negative. Does the patient have a suspected source of infection? Yes: Dysuria/Frequency/Urgency/UTI. Risk Assessment: Do you want to hurt yourself or someone else? Patient reports no desire to harm self or others. Onset of symptoms was April 16, 2023 at 03:30. Care prior to arrival: IV initiated. 20 GA, in the right hand. 17:43 Method Of Arrival: EMS: [facility] bp 17:43 Acuity: ISMAEL 3 bp Triage Assessment: 17:45 General: Appears in no apparent distress. Behavior is calm, cooperative. Pain: bp Complains of pain in back. EENT: No deficits noted. Neuro: No deficits noted. Cardiovascular: No deficits noted. Respiratory: No deficits noted. GI: No signs and/or symptoms were reported involving the gastrointestinal system. : No signs and/or symptoms were reported regarding the genitourinary system. Derm: No deficits noted. Musculoskeletal: Circulation, motion, and sensation intact. Historical: - Allergies: 19:05 Sulfa (Sulfonamide Antibiotics); bp - PMHx: 19:05 Atrial fibrillation; Parkinson's disease; Hypertensive disorder; bp - PSHx: 19:05 Cholecystectomy; bp - Immunization history:: Adult Immunizations up to date. - Social history:: Smoking status: Patient denies any tobacco usage or history of. Screenin:46 [facility] ED Fall Risk Assessment (Adult) History of falling in the last 3 months, bp including since admission No falls in past 3 months (0 pts) Confusion or Disorientation Yes (5 pts). Abuse screen: Denies threats or abuse. Denies injuries from another. Nutritional screening: No deficits noted. Tuberculosis screening: No symptoms or risk factors identified. Assessment: 17:46 General: SEE TRIAGE NOTE. bp 19:20 General: Appears in no apparent distress. comfortable, well groomed, well developed, pf1 Behavior is calm, cooperative, appropriate for age, quiet. General: Patient stated fever with chills,onset 0330 this AM. stated patient's 16 chilean kim placed on 10 days ago. Pain: Denies pain. Neuro: No deficits noted. Level of Consciousness is awake, alert, obeys commands, Oriented to person, place, time, situation, Reports Parkinson's with tremors. Cardiovascular: No deficits noted. Capillary refill < 3 seconds Patient's skin is warm and dry. Respiratory: No deficits noted. GI: No deficits noted. Abdomen is round non-distended. : Kim in place to gravity drainage kim placed [employer] on 10 days ago. EENT: No deficits noted. No signs and/or symptoms were reported regarding the EENT system. Derm: No deficits noted. No signs and/or symptoms reported regarding the dermatologic system. 20:20 Reassessment: Patient appears in no apparent distress at this time. No changes from pf1 previously documented assessment. Patient and/or family updated on plan of care and expected duration. Pain level reassessed. Patient is alert, oriented x 3, equal unlabored respirations, skin warm/dry/pink. Patient states symptoms have improved. 20:45 Reassessment: 16 chilean kim catheter removed per nursing orders. Patient tolerated pf1 well. 21:00 Reassessment: Patient appears in no apparent distress at this time. Patient and/or pf1 family updated on plan of care and expected duration. Pain level reassessed. Patient is alert, oriented x 3, equal unlabored respirations, skin warm/dry/pink. Patient states feeling better. Patient states symptoms have improved. 21:10 Reassessment: attempted report, nurse to call back. pf1 Vital Signs: 17:43 BP 120 / 80; Pulse 82; Resp 16; Temp 101.9; Pulse Ox 100% ; bp 19:05 BP 118 / 92; Pulse 80; Resp 17; Pulse Ox 98% ; bp 19:06 Temp 99(O); mm9 19:24 BP 118 / 92; Pulse 85; Resp 19; Temp 99.9; Pulse Ox 97% on R/A; Pain 0/10; pf1 20:00 BP 109 / 50; Pulse 79; Resp 20; Pulse Ox 95% on R/A; Pain 0/10; pf1 21:12 BP 114 / 59; Pulse 75; Resp 18; Temp 99.3(O); Pulse Ox 95% on R/A; Pain 0/10; pf1 19:24 Pain Scale: Adult pf1 20:00 Pain Scale: Adult pf1 21:12 Pain Scale: Adult pf1 ED Course: 17:43 Patient arrived in ED. bp 17:43 Kathie Benoit FNP-C is PHCP. snw 17:43 Jose Huerta MD is Attending Physician. snw 17:45 Triage completed. bp 17:46 Arm band placed on. bp 17:46 Patient has correct armband on for positive identification. Bed in low position. Call bp light in reach. Side rails up X2. 17:47 Ede Summers, RAMSES is Primary Nurse. bp 17:47 Maintain EMS IV. Dressing intact. Good blood return noted. Site clean \T\ dry. Gauge \T\ bp site: 20 GA R HAND. 18:57 Chest Single View XRAY Sent. mm9 18:57 Blood Culture Adult (2) Sent. mm9 18:57 CMP Sent. mm9 18:57 Lactate w/ 2H reflex if indic. Sent. mm9 18:58 Patient has correct armband on for positive identification. Adult w/ patient. Pillow mm9 given. Client placed on continuous cardiac and pulse oximetry monitoring. NIBP monitoring applied. ekg monitor tech on. Pulse ox on. NIBP on. 18:58 EKG done, by ED staff, reviewed by Kathie CHAVEZ. mm9 19:08 Chest Single View XRAY In Process Unspecified. EDMS 19:24 Primary Nurse role handed off by Ede Summers, RN rv1 19:38 Valerie Bray MD is Hospitalizing Provider. snw 21:13 Patient admitted, IV remains in place. pf1 21:15 No provider procedures requiring assistance completed. pf1 Administered Medications: 18:40 Drug: NS 0.9% IV 500 ml Route: IV; Rate: bolus; Site: right hand; bp 19:15 Follow up: Response: No adverse reaction; Marked relief of symptoms; IV Status: pf1 Completed infusion; IV Intake: 500ml 19:15 Drug: Rocephin - Rocephin (cefTRIAXone) IVPB 1 grams Route: IVPB; Infused Over: 30 pf1 mins; Site: right hand; 19:45 Follow up: Response: No adverse reaction; Marked relief of symptoms; IV Status: pf1 Completed infusion; IV Intake: 50ml 19:48 Drug: NS 0.9% IV 500 ml Route: IV; Rate: bolus; Site: right hand; pf1 20:30 Follow up: Response: No adverse reaction; Marked relief of symptoms; IV Status: pf1 Completed infusion; IV Intake: 500ml Medication: 17:46 VIS not applicable for this client. bp Intake: 19:15 IV: 500ml; Total: 500ml. pf1 19:45 IV: 50ml; Total: 550ml. pf1 20:30 IV: 500ml; Total: 1050ml. pf1 Outcome: 19:44 Decision to Hospitalize by Provider. snw 21:35 Admitted to Med/surg accompanied by tech, via stretcher, room 218, with chart, Report pf1 called to RAMSES Craig 21:35 Condition: stable 21:35 Instructed on the need for admit, Demonstrated understanding of instructions. 22:02 Patient left the ED. pf1 Signatures: Dispatcher [employer] EDMS Kathie Benoit, HAZARD MITIGATION OFFICER-C HAZARD MITIGATION OFFICER-Ede Mea RN Amanda Tse mmNila Perez RN RN pf1 Annetta Elena [facility]
--- NOTE | 2023-04-16 19:46 | EDPHYS ---
Physician Documentation [facility] Name: Good Pinzon Age: 82 yrs Sex: Male : 1940 Arrival Date: 04/16/2023 Time: 17:39 Bed 14 Private MD: ED Physician Jose Huerta HPI: 04/16 17:47 This 82 yrs old Male presents to ER via EMS with complaints of Back Pain. snw 17:47 The patient presents with pain that is acute. The symptoms are located in the low back. snw Onset: The symptoms/episode began/occurred acutely, this morning. The pain does not radiate. Associated signs and symptoms: Pertinent positives: fever, Pt has catheter, replaced last week per report, appt with Urology tomorrow. Severity of symptoms: At their worst the symptoms were moderate, severe. It is unknown whether or not the patient has had similar symptoms in the past. Historical: - Allergies: 19:05 Sulfa (Sulfonamide Antibiotics); bp - PMHx: 19:05 Atrial fibrillation; Parkinson's disease; Hypertensive disorder; bp - PSHx: 19:05 Cholecystectomy; bp - Immunization history:: Adult Immunizations up to date. - Social history:: Smoking status: Patient denies any tobacco usage or history of. ROS: 17:46 Eyes: Negative for injury, pain, redness, and discharge, ENT: Negative for injury, snw pain, and discharge, Neck: Negative for injury, pain, and swelling, Cardiovascular: Negative for chest pain, palpitations, and edema, Respiratory: Negative for shortness of breath, cough, wheezing, and pleuritic chest pain, Abdomen/GI: Negative for abdominal pain, nausea, vomiting, diarrhea, and constipation. 17:46 MS/Extremity: Negative for injury and deformity, Skin: Negative for injury, rash, and discoloration. 17:46 Constitutional: Positive for body aches, fever, malaise. 17:46 Back: Positive for pain at rest, of the pelvis and back. 17:46 Neuro: Positive for tremor. Exam: 17:44 Head/Face: Normocephalic, atraumatic. Eyes: Pupils equal round and reactive to light, snw extra-ocular motions intact. Lids and lashes normal. Conjunctiva and sclera are non-icteric and not injected. Cornea within normal limits. Periorbital areas with no swelling, redness, or edema. ENT: Nares patent. No nasal discharge, no septal abnormalities noted. Tympanic membranes are normal and external auditory canals are clear. Oropharynx with no redness, swelling, or masses, exudates, or evidence of obstruction, uvula midline. Mucous membranes moist. Neck: Trachea midline, no thyromegaly or masses palpated, and no cervical lymphadenopathy. Supple, full range of motion without nuchal rigidity, or vertebral point tenderness. No Meningismus. Chest/axilla: Normal chest wall appearance and motion. Nontender with no deformity. No lesions are appreciated. 17:44 Abdomen/GI: Soft, non-tender, with normal bowel sounds. No distension or tympany. No guarding or rebound. No evidence of tenderness throughout. Back: No spinal tenderness. No costovertebral tenderness. Full range of motion. Skin: Warm, dry with normal turgor. Normal color with no rashes, no lesions, and no evidence of cellulitis. MS/ Extremity: Pulses equal, no cyanosis. Neurovascular intact. Full, normal range of motion. 17:44 Constitutional: The patient appears awake, anxious, febrile, uncomfortable. 17:44 Cardiovascular: Rate: tachycardic, Rhythm: irregularly irregular. 17:44 Respiratory: the patient does not display signs of respiratory distress, Respirations: normal, Breath sounds: bronchial sounds, that are moderate, are heard in the left posterior lower lobe. 17:44 Neuro: Orientation: is normal, Mentation: is normal, Abnormal movements: tremor - hx of Parkinson's. Vital Signs: 17:43 BP 120 / 80; Pulse 82; Resp 16; Temp 101.9; Pulse Ox 100% ; bp 19:05 BP 118 / 92; Pulse 80; Resp 17; Pulse Ox 98% ; bp 19:06 Temp 99(O); mm9 19:24 BP 118 / 92; Pulse 85; Resp 19; Temp 99.9; Pulse Ox 97% on R/A; Pain 0/10; pf1 20:00 BP 109 / 50; Pulse 79; Resp 20; Pulse Ox 95% on R/A; Pain 0/10; pf1 21:12 BP 114 / 59; Pulse 75; Resp 18; Temp 99.3(O); Pulse Ox 95% on R/A; Pain 0/10; pf1 19:24 Pain Scale: Adult pf1 20:00 Pain Scale: Adult pf1 21:12 Pain Scale: Adult pf1 MDM: 17:48 Differential diagnosis: Basilar Pneumonia Pyelonephritis sepsis. Data reviewed: vital snw signs, nurses notes. 17:50 Patient medically screened. snw 19:28 Post IV fluid administration reassessment for Sepsis: Client not prescribed the 30 snw mL/kg IVF due to: blood pressure responded with lesser volume. Amount of IVF prescribed: 1000 Focused Assessment performed: April 16, 2023 at 19:29 Heart: Lungs: Current vital signs reviewed:. Counseling: I had a detailed discussion with the patient and/or guardian regarding: the historical points, exam findings, and any diagnostic results supporting the discharge/admit diagnosis, lab results, radiology results, the need for further work-up and treatment in the hospital. 19:44 Management of patient was discussed with the following: Primary Care Provider: Dr. ana paula Bray, inpatient admission. 19:47 Response to treatment: the patient's symptoms have mildly improved after treatment. snw 04/16 17:44 Order name: Blood Culture Adult (2) snw 04/16 17:44 Order name: CBC with Diff; Complete Time: 18:57 snw 04/16 17:44 Order name: CMP; Complete Time: 19:27 snw 04/16 17:44 Order name: Lactate w/ 2H reflex if indic.; Complete Time: 19:29 snw 04/16 17:44 Order name: Protime (+inr); Complete Time: 18:57 snw 04/16 17:44 Order name: Ptt, Activated; Complete Time: 18:57 snw 04/16 17:44 Order name: Urinalysis w/ reflexes; Complete Time: 19:29 snw 04/16 19:31 Order name: Urine Culture EDMS 04/16 20:13 Order name: Phosphorus EDMS 04/16 20:13 Order name: Urinalysis w/ reflexes EDMS 04/16 20:13 Order name: CBC with Automated Diff EDMS 04/16 20:13 Order name: CBC with Automated Diff EDMS 04/16 20:13 Order name: Comprehensive Metabolic Panel EDMS 04/16 20:13 Order name: Comprehensive Metabolic Panel EDMS 04/16 20:13 Order name: Magnesium EDMS 04/16 20:13 Order name: Magnesium [facility] 04/16 17:44 Order name: Chest Single View XRAY; Complete Time: 19:27 snw 04/16 17:44 Order name: EKG; Complete Time: 17:45 snw 04/16 20:13 Order name: Patient Safety Orders [facility] 04/16 20:13 Order name: Heart Healthy [facility] 04/16 17:44 Order name: Accucheck; Complete Time: 18:40 snw 04/16 17:44 Order name: Cardiac monitoring; Complete Time: 18:41 snw 04/16 17:44 Order name: EKG - Nurse/Tech; Complete Time: 18:41 snw 04/16 17:44 Order name: IV Saline Lock - Large Bore; Complete Time: 18:41 snw 04/16 17:44 Order name: Labs collected and sent; Complete Time: 18:41 snw 04/16 17:44 Order name: O2 Per Protocol; Complete Time: 18:40 snw 04/16 17:44 Order name: O2 Sat Monitoring; Complete Time: 18:40 snw 04/16 17:44 Order name: Vital Signs; Complete Time: 18:40 snw 04/16 17:48 Order name: Misc. Order: change leg bag to large gravity bag; Complete Time: 19:02 snw 04/16 19:48 Order name: Misc. Order: need medication list; Complete Time: 19:53 snw 04/16 20:12 Order name: Misc. Order: Remove kim cath please; Complete Time: 20:45 snw EC:00 Rate is 80 beats/min. Rhythm is regular. QRS [place] is Normal. MD interval is prolonged. snw Clinical impression: NSR w/ Non-specific ST/T Changes. Administered Medications: 18:40 Drug: NS 0.9% IV 500 ml Route: IV; Rate: bolus; Site: right hand; bp 19:15 Follow up: Response: No adverse reaction; Marked relief of symptoms; IV Status: pf1 Completed infusion; IV Intake: 500ml 19:15 Drug: Rocephin - Rocephin (cefTRIAXone) IVPB 1 grams Route: IVPB; Infused Over: 30 pf1 mins; Site: right hand; 19:45 Follow up: Response: No adverse reaction; Marked relief of symptoms; IV Status: pf1 Completed infusion; IV Intake: 50ml 19:48 Drug: NS 0.9% IV 500 ml Route: IV; Rate: bolus; Site: right hand; pf1 20:30 Follow up: Response: No adverse reaction; Marked relief of symptoms; IV Status: pf1 Completed infusion; IV Intake: 500ml Disposition Summary: 04/16/23 19:44 Hospitalization Ordered Hospitalization Status: Inpatient Admission snw Provider: Valerie Bray [facility] snw Condition: Stable snw Problem: new snw Symptoms: are unchanged snw Bed/Room Type: Standard snw Room Assignment: 218(04/16/23 20:21) cg Diagnosis - UTI/ Urinary tract infection, site not specified snw - Severe sepsis without septic shock snw Forms: - Medication Reconciliation Form snw - SBAR form snw Addendum: 04/18/2023 09:01 Co-signature as Attending Physician, Jose Huerta MD I reviewed the patient's care r n provided by the Advanced Practice Provider and agree with the diagnosis and treatment plan. Signatures: Dispatcher [employer] EDKathie Kim, BLOW MOLDING MACHINE OPERATOR-C BLOW MOLDING MACHINE OPERATOR-Csnw Jose Huerta MD MD rn Garcia, Cindy, RN RN Ede Ashraf, Nila Orta RN, RN RN pf1 Corrections: (The following items were deleted from the chart) 04/16 20:21 19:44 snw cg
[2023-04-16] MEDS ORDERED: TAMSULOSIN 0.4 MG SR CAP PO ONE (19:57)
[2023-04-16] MEDS ORDERED: MAGNESIUM HYDROXIDE 8% 30 ML PO PRN (19:57)
[2023-04-16] MEDS ORDERED: APIXABAN 5 MG TABLET PO SCH (21:00)
[2023-04-16] MEDS ORDERED: AMIODARONE HCL 200 MG TAB PO SCH (21:00)
[2023-04-16] MEDS: CARBIDOPA/LEVODOPA 25/100 TAB PO SCH (22:49)
[2023-04-16] MEDS: APIXABAN 2.5 MG TABLET PO SCH (22:49)
[2023-04-16] MEDS: NA CHLORIDE 0.9% 1,000 ML IV SCH (22:49)
[2023-04-16] MEDS: ROPINIROLE HCL 1 MG TAB PO SCH (22:50)
[2023-04-16] MEDS: MIDODRINE HCL 5 MG TABLET PO SCH (22:56)
[2023-04-17] MEDS: ACETAMINOPHEN 500 MG TAB PO PRN ×2 (03:22→10:37)
[2023-04-17 03:36] LABS: Hematocrit 32.8 % (39.6-49.0); Lymphocytes % 5.8 % (15.3-44.8); MCV 93.3 fL (80-100); MPV 9.1 fL (7.6-11.3); RBC Red Blood Cell Count 3.52 M/uL (4.33-5.43)
[2023-04-17 03:53] LABS: ALT/SGPT < 10 U/L (16-61); AST/SGOT 26 U/L (15-37); Albumin 2.7 g/dL (3.4-5.0); Alkaline Phosphatase 65 U/L (45-117); BUN Blood Urea Nitrogen 26 mg/dL (7-18); Bicarbonate 26 mEq/L (21-32); Bilirubin Total 1.1 mg/dL (0.2-1.0); Glomerular Filtration Rate 38 ml/min (=/>90); Glucose Level 106 mg/dL (74-106); Magnesium 1.8 mg/dL (1.6-2.4); Phosphorus 3.7 mg/dL (2.5-4.9); Potassium 5.2 mEq/L (3.5-5.1); Protein, Total 6.4 g/dL (6.4-8.2); Sodium Level 135 mEq/L (136-145)
[2023-04-17] MEDS: MIDODRINE HCL 5 MG TABLET PO SCH ×3 (05:52→16:11)
[2023-04-17] MEDS ORDERED: CEFTRIAXONE 1,000 MG in NA CHLORIDE 0.9% 50 ML IVPB SCH (07:00)
[2023-04-17] MEDS: FINASTERIDE 5 MG TAB PO SCH (08:34)
[2023-04-17] MEDS: Meropenem 1,000 MG in NA CHLORIDE 0.9% 100 ML IV SCH ×2 (08:34→21:25)
[2023-04-17] MEDS: NA CHLORIDE 0.9% 1,000 ML IV SCH ×3 (08:34→21:42)
[2023-04-17] MEDS: CARBIDOPA/LEVODOPA 25/100 TAB PO SCH ×3 (08:35→21:26)
[2023-04-17] MEDS: APIXABAN 2.5 MG TABLET PO SCH ×2 (08:35→21:26)
[2023-04-17] MEDS: TAMSULOSIN 0.4 MG SR CAP PO SCH ×2 (08:35→21:25)
[2023-04-17] MEDS: ROPINIROLE HCL 1 MG TAB PO SCH ×3 (08:36→21:26)
[2023-04-17] MEDS: AMIODARONE HCL 200 MG TAB PO SCH (08:38)
--- NOTE | 2023-04-17 12:03 | EKG ---
Test Date: 2023-04-16 Test Time: 18:52:22 [place] Man: GILL MEASUREMENT RESULTS: Intervals: Rate: 80 [place]: 242 QRSD: 104 QT: 366 QTc: 422 [place]: P: 20 [place]: 242 QRS: -69 T: 61 INTERPRETIVE STATEMENTS: Sinus rhythm with 1st degree AV block Left axis deviation Incomplete right bundle branch block Cannot rule out Anterior infarct, age undetermined Abnormal ECG Compared to ECG 03/27/2023 16:35:25 Myocardial infarct finding now present T-wave abnormality no longer present Electronically Signed On 04-17-23 12:00:28 CDT by Zaire Zapien
[2023-04-17] MEDS ORDERED: ACETAMINOPHEN 500 MG TAB PO ONE (12:06)
[2023-04-17] MEDS ORDERED: NA CHLORIDE 0.9% 500 ML IV ONE (12:06)
--- NOTE | 2023-04-17 12:31 | RAD REPORT ---
EXAM DESCRIPTION: RAD - Chest Single View - 04/17/2023 12:23 pm CLINICAL HISTORY: pneumonia Chest pain. COMPARISON: Chest Single View dated 04/16/2023; Chest Single View dated 03/27/2023; Chest Single View dated 12/22/2021; Chest Pa And Lat (2 Views) dated 07/24/2018 FINDINGS: Portable technique limits examination quality. Moderate bilateral pulmonary opacities are present, which may represent pulmonary edema. These appear new since yesterday's study. The heart is mildly enlarged. No displaced fractures.
[2023-04-17 13:45] LABS: Absolute Lymphocytes (CBC) 0.3 K/uL (0.7-4.9); Hematocrit 30.1 % (39.6-49.0); Lymphocytes % 2.4 % (15.3-44.8); MCV 93.1 fL (80-100); MPV 8.8 fL (7.6-11.3); RBC Red Blood Cell Count 3.24 M/uL (4.33-5.43)
[2023-04-17 14:18] LABS: Albumin 2.4 g/dL (3.4-5.0); Bilirubin Total 0.9 mg/dL (0.2-1.0); Potassium 4.5 mEq/L (3.5-5.1); Protein, Total 5.7 g/dL (6.4-8.2)
[2023-04-17] MEDS ORDERED: FAMOTIDINE 20 MG TAB PO SCH (21:00)
[2023-04-17] MEDS: FAMOTIDINE 20 MG TAB PO SCH (21:42)
[2023-04-18] MEDS: NA CHLORIDE 0.9% 1,000 ML IV SCH ×4 (02:00→20:50)
[2023-04-18] MEDS: ACETAMINOPHEN 500 MG TAB PO PRN (04:11)
[2023-04-18 04:37] LABS: Magnesium 1.7 mg/dL (1.6-2.4); Potassium 4.6 mEq/L (3.5-5.1)
[2023-04-18] MEDS: MIDODRINE HCL 5 MG TABLET PO SCH ×3 (06:02→15:35)
--- NOTE | 2023-04-18 08:17 | RAD REPORT ---
EXAM DESCRIPTION: RAD - Chest Single View - 04/18/2023 7:57 am CLINICAL HISTORY: sepsis COMPARISON: Chest Single View dated 04/17/2023; Chest Single View dated 04/16/2023; Chest Single View dated 03/27/2023; Chest Single View dated 12/22/2021 FINDINGS: Lines: None. Lungs: No evidence of edema or pneumonia. Pleural: No significant pleural effusions or pneumothorax. Cardiac: Mild cardiomegaly. Mediastinum: Within normal limits. Bones: No acute fractures. Other: None IMPRESSION: No acute cardiopulmonary disease.
[2023-04-18] MEDS ORDERED: MAGNESIUM SULFATE 1 gm IVPB 1 GM/100 ML BAG IV ONE (09:00)
[2023-04-18] MEDS: Meropenem 1,000 MG in NA CHLORIDE 0.9% 100 ML IV SCH ×2 (09:15→20:47)
[2023-04-18] MEDS: TAMSULOSIN 0.4 MG SR CAP PO SCH ×2 (09:16→20:49)
[2023-04-18] MEDS: CARBIDOPA/LEVODOPA 25/100 TAB PO SCH ×3 (09:16→20:50)
[2023-04-18] MEDS: AMIODARONE HCL 200 MG TAB PO SCH (09:17)
[2023-04-18] MEDS: ROPINIROLE HCL 1 MG TAB PO SCH ×3 (09:17→20:49)
[2023-04-18] MEDS: FINASTERIDE 5 MG TAB PO SCH (09:17)
[2023-04-18] MEDS: APIXABAN 2.5 MG TABLET PO SCH ×2 (09:17→20:50)
--- NOTE | 2023-04-18 09:56 | HP ---
Date of Admission: 04/17/2023 Chief Complaint: Feeling weak, fever, and chills. History Of Present Illness: This is an 82-year-old very pleasant male patient, who recently had problem with urinary retention due to enlarged prostate. He had Cotton catheter placed and after week or so, it was discontinued and the patient was not able to void, so Cotton catheter was placed back and he was asked to follow up with the urologist. He has appointment to see urologist on an outpatient basis either today or tomorrow, but he tells me that this is with the urologist in [place] and he does not know the name, but meanwhile he ends up in our emergency room as of yesterday with fever, chills, and feeling weak. After he was evaluated in the ER, he was admitted to the hospital with urinary tract infection and sepsis. When I saw him this morning, he was sleeping, easily arousable, not in any distress. The patient was started on ceftriaxone after he came to emergency room. Allergies: SULFA. Medications: Amiodarone 200 mg daily, Tamsulosin 0.4 mg 2 times a day, Eliquis 5 mg 2 times a day, atorvastatin 20 mg daily at bedtime, carbidopa/levodopa 50/200 mg 1 tablet 3 times a day, famotidine 40 mg daily at bedtime, midodrine 5 mg 3 times a day, ropinirole 1 mg 2 times a day, and finasteride 5 mg daily. Review of Systems: Constitutional: As mentioned above. Genitourinary: As mentioned above. All other systems reviewed and negative. Past Medical History: Significant for Parkinson disease; orthostatic hypotension; hyperlipidemia; paroxysmal atrial fibrillation; gastroesophageal reflux disease; nonalcoholic fatty liver disease; renal cyst; chronic kidney disease; benign prostatic hypertrophy; anemia; provoked DVT of leg in 1988, 2000, and 2006, now on chronic anticoagulation therapy for atrial fibrillation. Past Surgical History: Significant for hernia repair, appendectomy, cholecystectomy done last week, and surgery on both knees. Family History: Father and had prostate cancer. Mother and had colon cancer. Brother and had leukemia. Social History: Prior history of smoking. Use of alcohol occasiona Physical Examination: Vital Signs: When he first came into emergency room; temperature 101.9, pulse 82, respiratory rate 16, blood pressure 120/80, oxygen saturation 100%. General: Awake, alert, oriented, not in distress. HEENT: Head atraumatic, normocephalic. Conjunctivae nonerythematous. Sclerae white. Mouth, no thrush or edema noted. Ears/Nose, no mass, lesion, discharge noted. Neck: Supple. No JVD, lymph nodes, bruit, thyromegaly noted. Lungs: Bilateral good equal air entry. Clear to auscultation. No rhonchi. No rales. Heart: Normal heart sounds, no murmur or gallop. Abdomen: Soft, bowel sounds normal. No guarding, rigidity, tenderness, mass, hepatosplenomegaly, distention, or bruit noted. Extremities: No leg edema. No calf tenderness. Skin: No rash, ulcer, cellulitis. Lymphatics: No lymph node enlargement in neck, supraclavicular, infraclavicular region. Neuro: No focal neurological deficit. Chest: Unremarkable. External Genitalia: Presence of Cotton catheter draining yellow color urine. Rectal: Deferred. Laboratory Data: Yesterday; white count 10.4, hemoglobin 11, and a platelet count of 139. This morning; white count 16.7, hemoglobin 10.9, and a platelet count of 132. Yesterday; sodium 136, potassium 4.4, chloride 108, bicarb 22, BUN 24, creatinine 1.79, glucose 96. Initial lactic acid 3, repeat lactic acid level 1.2. Liver function tests unremarkable except total bilirubin 1.2. This morning, total bilirubin is 1.1. Sodium 135, potassium 5.2, chloride 105, bicarb 26, BUN 26, creatinine 1.73, glucose 106. Urinalysis; leukocyte esterase 500, RBC more than 50, WBC more than 50, bacteria 20 to 50, 3+ protein, 3+ blood. Blood culture and urine culture pending. Chest x-ray, no acute cardiopulmonary changes. Impression: 1. Sepsis. 2. Urinary tract infection. 3. Anemia, unspecified. 4. Thrombocytopenia. 5. Chronic kidney disease, stage 3B. 6. Hyperkalemia. 7. Generalized weakness. 8. Debility. 9. Benign prostatic hypertrophy with lower urinary tract symptoms. 10. Parkinson disease. 11. Orthostatic hypotension. 12. Chronic anticoagulation therapy. 13. Hyperlipidemia. 14. Gastroesophageal reflux disease. 15. Nonalcoholic fatty liver disease. 16. Paroxysmal atrial fibrillation. Plan: We will go ahead and admit the patient to the hospital for further evaluation and management of this problem. The patient is appropriate for inpatient and is expected to spend 2 midnights in hospital. He was started on ceftriaxone yesterday when he came into the ER and this morning I have discontinued ceftriaxone and we will start him on meropenem per order. We will follow up on urine culture and blood culture results. Continue IV fluid per order. We will consult Physical Therapy for his generalized weakness and debility. At home, he takes Eliquis, we will continue that as his chronic anticoagulation therapy for atrial fibrillation. For Parkinson disease, we will continue his medication per order and for orthostatic hypotension, we will continue midodrine per order. We will also continue amiodarone for his atrial fibrillation. I did try to call the patient's this morning and she did not answer as I wanted to discuss more details with her. I will see him tomorrow morning for followup. During the course of day today, the patient had episode of chills and Rapid Response team was called and I did talk to the hospitalist. At that time, his systolic blood pressure was around 90 or so and 500 cc IV fluid bolus was ordered. CORBY/MODL Voice ID: [id number] DANE
--- NOTE | 2023-04-18 20:43 | PN ---
Date of Progress Note: 04/18/2023 Subjective: The patient was seen this morning for followup. No new complaints or problems reported by the patient. He was sleeping easily arousable, not in distress. Denies any chest pain or shortness of breath. Physical Examination: Vital Signs: Reviewed. Temperature this morning was 101.9, pulse 70, respiratory rate 18, blood pressure 114/56, and oxygen saturation 94%. HEENT: Unremarkable. Lungs: Clear to auscultation. Heart: Sounds normal. Abdomen: Soft. Bowel sounds normal. No guarding, rigidity, tenderness, distention. Extremities: No leg edema. Laboratory Data: Yesterday's lab results were reviewed. Yesterday afternoon white count was 12.7, hemoglobin 9.9, and platelets 110. This morning sodium is 137, potassium 4.6, chloride 110, bicarb 23, BUN 26, creatinine 1.54, and glucose 95. Blood culture is growing some bacteria, identification is pending. Urine culture result pending. Impression: 1. Urinary tract infection. 2. Sepsis. 3. Acute kidney injury. 4. Atrial fibrillation. 5. Parkinson disease. Plan: We will go ahead and continue current Parkinson's medication. Continue Eliquis per order. We will go ahead and have Physical Therapy continue to work with the patient and continue current antibiotic, which is meropenem. Once culture result is available, then we will make a decision regarding adjustment of antibiotics. I will see him tomorrow for followup. CORBY/MODL Voice ID: [id number] Report ID: [id number] DANE
[2023-04-18] MEDS: FAMOTIDINE 20 MG TAB PO SCH (20:50)
[2023-04-19] MEDS: NA CHLORIDE 0.9% 1,000 ML IV SCH ×2 (05:59→17:09)
[2023-04-19] MEDS: MIDODRINE HCL 5 MG TABLET PO SCH ×3 (06:01→17:09)
[2023-04-19] MEDS: Mupirocin NASAL 2 APPL/1 GM TUBE NAS SCH ×2 (09:38→20:10)
[2023-04-19] MEDS: Meropenem 1,000 MG in NA CHLORIDE 0.9% 100 ML IV SCH ×2 (09:38→20:08)
[2023-04-19] MEDS: AMIODARONE HCL 200 MG TAB PO SCH (09:39)
[2023-04-19] MEDS: ROPINIROLE HCL 1 MG TAB PO SCH ×3 (09:39→20:09)
[2023-04-19] MEDS: APIXABAN 2.5 MG TABLET PO SCH ×2 (09:39→20:09)
[2023-04-19] MEDS: CARBIDOPA/LEVODOPA 25/100 TAB PO SCH ×3 (09:39→20:09)
[2023-04-19] MEDS: TAMSULOSIN 0.4 MG SR CAP PO SCH ×2 (09:39→20:09)
[2023-04-19] MEDS: FINASTERIDE 5 MG TAB PO SCH (09:45)
--- NOTE | 2023-04-19 15:53 | RAD REPORT ---
EXAM DESCRIPTION: [facility] Single [facility]04/19/2023 3:47 pm CLINICAL HISTORY: Picc line placement COMPARISON: Chest Single View dated 04/18/2023; Chest Single View dated 04/17/2023; Chest Single View dated 04/16/2023; Chest Single View dated 03/27/2023 TECHNIQUE: Portable AP view of the chest. FINDINGS: Right arm PICC in satisfactory position with catheter tip projecting over the distal SVC. The lungs are clear, apart from streaky left basal opacification, possibly atelectasis. No pneumotho rax or effusion. The cardiomediastinal contours are unremarkable. IMPRESSION: Satisfactory positioning of right arm PICC. No acute cardiopulmonary process.
[2023-04-19] MEDS: FAMOTIDINE 20 MG TAB PO SCH (20:09)
--- NOTE | 2023-04-20 00:53 | PN ---
Date of Progress Note: 04/19/2023 Subjective: The patient was seen this morning for followup. He was lying in bed, not in any distres s. Denies any new complaints. Objective: Vital Signs: Reviewed. HEENT: Unremarkable. Lungs: Clear to auscultation. Heart: Sounds normal. Abdomen: Soft. Bowel sounds normal. No guarding, rigidity, tenderness, distention. Extremities: No leg edema. Laboratory Data: Urine culture and blood culture growing E coli and it is ESBL. Impression: 1.Sepsis. 2.Urinary tract infection. 3.Acute kidney injury. 4.Parkinson disease. 5.Atrial fibrillation, chronic. 6.Chronic anticoagulation therapy. 7.Benign prostatic hypertrophy with urinary retention. Plan: We will go ahead and continue meropenem that currently the patient is on. Order was written f or PICC line as well as Social Service to make arrangements for home IV antibiotic therapy. Physical Therapy to continue to work with the patient. We will continue current anticoagulation therapy. Neymar seaman the course of day today, nurse contacted me, informed me that the patient had urinary retention even with the Cotton catheter. He had some discomfort in his bladder area and bladder scan had shown 600 cc of urine in the bladder. Nurse was advised to flush the catheter and try to reposition the ca theter and it appeared that the patient's catheter had to be repositioned and once it was done, large amount of urine was obtained in the bag and the patient started to feel much better. Social Service also notified me that the patient and does not feel comfortable going home with home IV antibio tic therapy so Social Service will assist with long-term facility placement. The patient has o utpatient appointment to see urologist, Dr. Mary next week on Monday. CORBY/MODL Voice ID: [id number] Report ID: [id number]
[2023-04-20 03:01] VITALS: BMI 33.7
[2023-04-20] MEDS: NA CHLORIDE 0.9% 1,000 ML IV SCH ×2 (03:47→13:37)
[2023-04-20] MEDS: MIDODRINE HCL 5 MG TABLET PO SCH ×3 (05:11→16:57)
[2023-04-20 05:50] LABS: Magnesium 1.9 mg/dL (1.6-2.4); Phosphorus 2.4 mg/dL (2.5-4.9); Potassium 4.1 mEq/L (3.5-5.1)
[2023-04-20 07:03] LABS: Hematocrit 29.6 % (39.6-49.0); Lymphocytes % 11.7 % (15.3-44.8); MCV 92.6 fL (80-100); MPV 9.4 fL (7.6-11.3); RBC Red Blood Cell Count 3.19 M/uL (4.33-5.43)
[2023-04-20 08:03] LABS: Blood Morphology Comment NOT SEEN (NOT SEEN); Platelet Estimate DECR; White Blood Cell Scan OK (OK)
[2023-04-20] MEDS: AMPICILLIN TRIHYDRATE 500 MG CAP PO SCH ×3 (09:00→21:43)
[2023-04-20] MEDS: POTASS/SODIUM PHOSPHATE 1 PKT POWD.PACK PO SCH ×2 (09:47→09:48)
[2023-04-20] MEDS: Mupirocin NASAL 2 APPL/1 GM TUBE NAS SCH ×2 (09:49→21:42)
[2023-04-20] MEDS: FINASTERIDE 5 MG TAB PO SCH (09:49)
[2023-04-20] MEDS: APIXABAN 2.5 MG TABLET PO SCH ×2 (09:50→21:42)
[2023-04-20] MEDS: ROPINIROLE HCL 1 MG TAB PO SCH ×3 (09:50→21:43)
[2023-04-20] MEDS: AMIODARONE HCL 200 MG TAB PO SCH (09:50)
[2023-04-20] MEDS: TAMSULOSIN 0.4 MG SR CAP PO SCH ×2 (09:50→21:43)
[2023-04-20] MEDS: CARBIDOPA/LEVODOPA 25/100 TAB PO SCH ×3 (09:50→21:43)
[2023-04-20] MEDS: Meropenem 1,000 MG in NA CHLORIDE 0.9% 100 ML IV SCH ×2 (09:52→21:43)
[2023-04-20] MEDS: FAMOTIDINE 20 MG TAB PO SCH (21:43)
--- NOTE | 2023-04-20 22:29 | PN ---
Date of Progress Note: 04/20/2023 Subjective: The patient was seen this morning for followup. He was lying in bed, not in any distres s. He denies any complaints and was feeling better this morning compared to before. Objective: Vital Signs: Reviewed. HEENT: Unremarkable. Lungs: Clear to auscultation. Heart: Sounds normal. Abdomen: Soft. Bowel sounds normal. No guarding, rigidity, tenderness, or distention. Extremities: No leg edema. Laboratory Data: White count 8.5, hemoglobin 10, and platelets 115. Sodium 136, potassium 4.1, chlo ride 107, bicarb 25, BUN 8, creatinine 0.98, and glucose 81. Urine culture has grown second bacteria , which is Enterococcus faecalis . He already has E coli ESBL growing in urine and blood. Impression: 1.Sepsis. 2.Urinary tract infection. 3.Benign prostatic hypertrophy with urinary retention. 4.Parkinson disease. Plan: We will go ahead and continue current meropenem. Physical Therapy to continue to work with th e patient. According to sensitivity result, Enterococcus faecalis is sensitive to ampicillin and we will start that antibiotic. Social Service will work with family member regarding discharge planning . Once arrangements are completed for him to go to nursing home facility, then we will discharge him. Details were discus sed with the patient. CORBY/MODL Voice ID: [id number] Report ID: [id number]
[2023-04-21 01:46] LABS: Specific Gravity 1.013 (1.005-1.030); Urine Bacteria <20 /HPF (<20); Urine Bilirubin NEGATIVE (Negative); Urine Blood 3+ (Negative); Urine Clarity Clear (Clear); Urine Color Light-Yellow (Yellow); Urine Glucose NEGATIVE (Negative); Urine Mucus Slight /HPF (None Seen); Urine Protein TRACE (Negative); Urine RBC 21-50 /HPF (None Seen); Urine Urobilinogen Normal (Normal); Urine pH 5.5 (5.0-7.0)
[2023-04-21] MEDS: NA CHLORIDE 0.9% 1,000 ML IV SCH ×2 (04:23)
[2023-04-21 04:59] LABS: Potassium 3.9 mEq/L (3.5-5.1)
[2023-04-21] MEDS: MIDODRINE HCL 5 MG TABLET PO SCH ×2 (05:36→10:58)
[2023-04-21] MEDS ORDERED: GUAIFENESIN/DM 5 ML UCUP PO PRN (06:31)
[2023-04-21] MEDS ORDERED: FUROSEMIDE 20 MG/ 2ML VIAL IV ONE (06:31)
--- NOTE | 2023-04-21 07:27 | RAD REPORT ---
EXAM DESCRIPTION: RAD - Chest Single View - 04/21/2023 6:53 am CLINICAL HISTORY: Wheezing,SOB COMPARISON: Chest Single View dated 04/19/2023; Chest Single View dated 04/18/2023; Chest Single View dated 04/17/2023; Chest Single View dated 04/16/2023 FINDINGS: Lines: Right subclavian approach PICC with tip overlying the proximal SVC. Lungs: Mild diffuse coarsening of the pulmonary interstitium is similar. Pleural: No significant pleural effusions or pneumothorax. Cardiac: Mild cardiomegaly. Mediastinum: Within normal limits. Bones: No acute fractures. Other: None IMPRESSION: Coarsened of the pulmonary interstitium could reflect a mild infectious or inflammatory process versus edema. . No consolidative airspace disease.
[2023-04-21 08:40] VITALS: TEMP 98.1
[2023-04-21] MEDS: APIXABAN 2.5 MG TABLET PO SCH (08:50)
[2023-04-21] MEDS: AMPICILLIN TRIHYDRATE 500 MG CAP PO SCH ×2 (08:50→13:27)
[2023-04-21] MEDS: AMIODARONE HCL 200 MG TAB PO SCH (08:51)
[2023-04-21] MEDS: CARBIDOPA/LEVODOPA 25/100 TAB PO SCH ×2 (08:51→13:26)
[2023-04-21] MEDS: TAMSULOSIN 0.4 MG SR CAP PO SCH (08:52)
[2023-04-21] MEDS: ROPINIROLE HCL 1 MG TAB PO SCH ×2 (08:52→13:27)
[2023-04-21] MEDS: FINASTERIDE 5 MG TAB PO SCH (08:52)
[2023-04-21] MEDS: Meropenem 1,000 MG in NA CHLORIDE 0.9% 100 ML IV SCH (08:53)
[2023-04-21] MEDS: Mupirocin NASAL 2 APPL/1 GM TUBE NAS SCH (08:57)
[2023-04-21] MEDS ORDERED: POTASSIUM CL SA 10 MEQ TAB PO ONE (09:00)
[2023-04-21 09:07] VITALS: O2SAT 98
[2023-04-21 13:10] VITALS: BP 114/60
--- NOTE | 2023-04-21 15:02 | DS ---
Date of Discharge: 04/21/2023 Disposition: Discharged to go to [facility] [place]. Physical Examination: HEENT: Unremarkable. Lungs: Clear to auscultation except very, very minimal basal rales noted in the right lung base, not using any accessory muscles of respiration. Heart: Sounds normal. Abdomen: Soft. Bowel sounds normal. No guarding, rigidity, tenderness, distention. Extremities: No leg edema. Discharge Medications And Instructions: Amiodarone 200 mg daily; tamsulosin 0.4 mg 2 times a day; El iquis 5 mg 2 times a day; atorvastatin 20 mg daily at bedtime; carbidopa/levodopa 50/200 one tablet 3 times a day; famotidine 40 mg daily at bedtime; midodrine 5 mg 3 times a day to be taken at 6:00 a.m ., 11:00 a.m., and 5:00 p.m.; ropinirole 1 mg 2 times a day; finasteride 5 mg daily. 1.Follow up with urologist, Dr. Mary, next week as per your appointment. 2.Cotton catheter care. 3.Fall precautions. 4.Consult Physical therapy and Occupational therapy at retirement. 5.Meropenem 1000 mg IV every 12 hours for 2 weeks. 6.Ampicillin 500 mg by mouth 3 times a day for 1 week. 7.Flush PICC line per protocol, change PICC line dressing per protocol, remove PICC line after 2 wee ks of IV antibiotic therapy completed. 8.Follow up at my office in 2-3 days after your discharge from retirement. 9.Labs: CBC, Chem-7 to be done on Monday04/24/2023. 10.Oxygen 2 L/minute per nasal cannula and try to wean off oxygen as long as oxygen saturation is mo re than 90%. 11.Robitussin DM 2 teaspoons by mouth 4 times a day as needed for cough. 12.Furosemide 20 mg by mouth daily for 3 days. 13.Potassium chloride 10 mEq by mouth daily for 3 days. Hospital Course: This is an 82-year-old pleasant male patient came into emergency room with complain ts of feeling weak, fever, and chills. Please see dictated H and P for more information. Patient ca me into emergency room, was admitted to the hospital with sepsis and urinary tract infection. His ur inalysis was abnormal. Urine culture and blood culture was done and both blood culture and urine cul ture grew E coli and this was ESBL. Initially, patient was on ceftriaxone, but day after admission, his ceftriaxone was discontinued and meropenem was started because his WBC count had gone up. Once w e started him on meropenem, his condition started improving and we got the final report on the urine and blood culture growing E coli, which was ESBL sensitive to meropenem, so the patient was on approp riate antibiotics day after the admission onwards. Order was placed for PICC line and the patient di d get a PICC line placed in his right arm. We did grow another bacteria, which was Enterococcus faec tj in the urine and according to sensitivity result, ampicillin was also added for that. Patient d id participate with the physical therapy. Social Service was consulted for discharge planning and ar rangements were made for patient to go to residential facility for short time while he is getting IV antibiotic therapy because patient and did not feel comfortable going home with home IV anti biotic therapy. So, once all the arrangements completed today, patient was discharged in stable cond ition. Patient was getting IV fluid for his acute kidney injury and volume depletion problem, which was discontinued early this morning because patient was having increasing cough problem and after dis continuation of IV fluid, 20 mg of Lasix IV x1 dose was ordered and when I saw him this morning, he w as feeling a lot better as he reported. Chest x-ray was done today shows some prominent interstitial marking. There is definitely possibility that the patient had some pulmonary edema and responded ve ry well to IV Lasix 1 dose and I will go ahead and continue oral Lasix for 3 days along with potassiu m replacement. Patient already has scheduled appointment to see urologist next week on Monday and he was encouraged to keep that appointment. Final Diagnoses: 1.Sepsis, organism Escherichia coli, extended-spectrum beta-lactamases. 2.Urinary tract infection, organism Escherichia coli and Enterococcus faecalis. 3.Acute kidney injury. 4.Anemia, unspecified. 5.Thrombocytopenia. 6.Pulmonary edema, acute. 7.Generalized weakness. 8.Debility. 9.Benign prostatic hypertrophy with lower urinary tract symptoms. 10.Parkinson disease. 11.Orthostatic hypotension. 12.Chronic anticoagulation therapy. 13.Hyperlipidemia. 14.Gastroesophageal reflux disease. 15.Paroxysmal atrial fibrillation. 16.Nonalcoholic fatty liver disease. 17.Hyperkalemia. Laboratory Data: Upon admission, white count 10.4, hemoglobin 11, platelets 139 on 04/16/2023. On 0 04/17/2023, white count went up to 16.7. His CBC from 04/17/2023: White count 12.7, hemoglobin 9.9, platelets 110 and yesterday white count 8.5, hemoglobin 10, platelets 115. Last chemistry today: So dium 134, potassium 3.9, chloride 106, bicarb 25, BUN 15, creatinine 0.89, glucose 90. His procalcit onin was 14.36 on 04/17/2023. When he was admitted, initial chemistry on 04/16/2023: Sodium 136, po tassium 4.4, chloride 108, bicarb 22, BUN 24, creatinine 1.79, glucose 96. Lactic acid 3. His potas sium was 5.2 on 04/17/2023. CORBY/MODL Voice ID: [id number] Report ID: [id number]
== END 2023-04-21 15:56 | DRG 871 ==
LOC: ER 17:39 → ERHOLD 19:50 → 2ND 20:28
PROVIDERS: ADMIT Internal Medicine; ATTEND Internal Medicine
PROC: 02HV33Z Insertion of Infusion Device into Superior Vena Cava, Percutaneous Approach (ICD-10-PCS; principal; 2023-04-19)
DX: A41.51 Sepsis due to Escherichia coli [E. coli] (principal); J81.0 Acute pulmonary edema; N17.9 Acute kidney failure, unspecified; N39.0 Urinary tract infection, site not specified; Z16.12 Extended spectrum beta lactamase (ESBL) resistance; A41.81 Sepsis due to Enterococcus; R65.20 Severe sepsis without septic shock; G20 Parkinson's disease; E78.5 Hyperlipidemia, unspecified; I48.0 Paroxysmal atrial fibrillation; K21.9 Gastro-esophageal reflux disease without esophagitis; N18.32 Chronic kidney disease, stage 3b; D63.1 Anemia in chronic kidney disease; I95.1 Orthostatic hypotension; K76.0 Fatty (change of) liver, not elsewhere classified; N40.1 Benign prostatic hyperplasia with lower urinary tract symptoms; R33.8 Other retention of urine; D69.6 Thrombocytopenia, unspecified; E87.5 Hyperkalemia; Z88.1 Allergy status to other antibiotic agents; Z90.49 Acquired absence of other specified parts of digestive tract; Z79.01 Long term (current) use of anticoagulants; Z87.891 Personal history of nicotine dependence; Z86.718 Personal history of other venous thrombosis and embolism; Z79.899 Other long term (current) drug therapy
CPT/HCPCS: 36415; 36569; 71045; 80048; 80053; 81001; 83605; 83735; 84100; 84145; 85025; 85610; 85730; 87040; 87077; 87086; 87088; 87186; 87205; 93005; 94760; 96361; 96365; 97116; 97163; 97530; 99285; J0696; J1940; J2185; J3475; J7030; J7040

== ENCOUNTER → 2023-12-15 | Day surgery (SDC) | payer OTHER ==
[~2023-12-15] MED LIST: ATROPINE SULF 1 MG/10 ML SYR IV ONE; FENTANYL CITR 100 MCG/2 ML ONE; FLUMAZENIL 0.1 MG/ML (5 mL VIAL) IV ONE; LIDOCAINE 2% VISCOUS ORAL 20 ML, SIMPLE SYRUP 20 ML MM ONE; MIDAZOLAM HCL 5 ML ONE; NA CHLORIDE 0.9% 500 ML ONE; NALOXONE 0.4 MG/ML VIAL ONE
== END ==
LOC: CCL 08:00
PROVIDERS: ATTEND Internal Medicine
DX: I48.11 Longstanding persistent atrial fibrillation (principal); Z98.890 Other specified postprocedural states; I34.0 Nonrheumatic mitral (valve) insufficiency; I07.1 Rheumatic tricuspid insufficiency; I10 Essential (primary) hypertension; Z79.01 Long term (current) use of anticoagulants; Z79.899 Other long term (current) drug therapy; Z88.2 Allergy status to sulfonamides; Z87.891 Personal history of nicotine dependence
CPT/HCPCS: 93312; J2250; J3010; J7040; 93306; J0461; J2310

== ENCOUNTER 2025-02-16 09:53 | Inpatient (IN) | payer OTHER ==
[2025-02-16 10:49] LABS: PT Prothrombin Time 13.1 SECONDS (10-13.0); PTT, Activated Partial Thromb 26.2 SECONDS (27.2-37.4); Protime INR 1.16
[2025-02-16 10:56] LABS: Absolute Basophils 0.1 K/uL (0-0.5); Absolute Eosinophils 0.1 K/uL (0-0.5); Absolute Lymphocytes (CBC) 1.7 K/uL (0.7-4.9); Absolute Monocytes 0.7 K/uL (0.1-1.3); Absolute Neutrophil 5.6 K/uL (1.8-8.0); Basophils % 0.8 % (0-1.3); Eosinophils % 1.2 % (0-4.4); Lymphocytes % 20.7 % (15.3-44.8); MCH 28.8 pg (27.0-35.0); MCHC 33.3 g/dL (32.0-36.0); MCV 86.5 fL (80-100); Monocytes % 8.8 % (3.3-12.3); Neutrophils % 68.5 % (41.7-73.7); Nucleated Red Blood Cells % 0.1 % (0-0); Platelets 177 thou/uL (152-406); RBC Red Blood Cell Count 4.16 M/uL (4.33-5.43); Red Cell Distribution Width 16.7 % (12.1-15.2)
[2025-02-16 10:58] LABS: Albumin 3.8 g/dL (3.4-5.0); Albumin/Globulin Ratio 0.9 (1.1-1.8); Anion Gap 7.9 mEq/L (5.0-15.0); Bilirubin Total 0.9 mg/dL (0.2-1.0); Globulin 4.3 g/dL (2.3-3.5); Potassium 3.9 mEq/L (3.5-5.1); Protein, Total 8.1 g/dL (6.4-8.2)
--- NOTE | 2025-02-16 11:32 | RAD REPORT ---
EXAM: CT brain without contrast HISTORY: FALL, AMS COMPARISON: 02/02/2022 TECHNIQUE: Multiple contiguous axial images were obtained and a CT of the brain without contrast. Sag ittal and coronal reformats were performed. FINDINGS: No evidence of hydrocephalus, intracranial hemorrhage, or extra-axial fluid collection. Mild brain atrophy with mild periventricular and deep white matter chronic microvascular ischemic ch anges present. The calvarium is intact. The visualized paranasal sinuses and mastoid air cells are essentially clear . IMPRESSION: No evidence of acute intracranial abnormality. EXAM: CT of the cervical spine without contrast HISTORY: FALL, AMS COMPARISON: None TECHNIQUE: Multiple contiguous axial images were obtained in a CT of the cervical spine without contr ast. Sagittal and coronal reformats were performed. FINDINGS: The vertebral bodies demonstrate normal height and alignment. No evidence of acute fracture or subluxation.. Up to moderate degenerative changes most pronounced at C5-6 and C6-7 with moderate to severe neural foraminal narrowing more pronounced at the lower level. These findings are stable. No prevertebral soft tissue swelling is seen. The posterior facets are well aligned. Normal alignment of the skull base with the cervical spine is seen. The lung apices are separately evaluated on dedicated CT chest of the same day. IMPRESSION: No evidence of acute osseous abnormality of the cervical spine. Stable degenerative changes as above.
--- NOTE | 2025-02-16 11:39 | RAD REPORT ---
EXAM: CT CHEST, ABDOMEN AND PELVIS WITH CONTRAST CLINICAL INDICATION: Male, 84 years old. fall, AMS TECHNIQUE: CT chest, abdomen, and pelvis was performed, following the administration of contrast, as per department protocol. Axial, sagittal and coronal reconstructions were obtained. One or more of the following dose reduction techniques were used: Automated exposure control, adjustment of the mA a nd/or kV according to patient size, and/or iterative reconstruction. Unless otherwise specified, incidental findings do not require dedicated imaging follow-up. COMPARISON: Chest radiograph of earlier the same day FINDINGS: LUNGS AND AIRWAYS: Dependent segmental atelectasis on the right. Calcified right 3 lower lobe granulo ma.. No nodules. PLEURA: Moderate right pneumothorax. Small layering pneumothorax component on the right. No left pleu ral effusion or pneumothorax. MEDIASTINUM AND LYMPH NODES: Heart is at the upper limit of normal in size. Left atrial appendage occ lusion device present. No mediastinal mass or fluid collection. Normal size mediastinal, hilar, and axillary lymph nodes. THORACIC AORTA: Normal caliber and configuration. PULMONARY ARTERIES: Normal caliber. OSSEOUS STRUCTURES AND CHEST WALL: Displaced right seventh, eighth, and ninth rib fractures, with mil d comminution of the ninth rib. LIVER: Normal in size and contour. No focal lesion or biliary dilitation. BILIARY SYSTEM: Status post cholecystectomy. PANCREAS: No mass, ductal dilation, or raymundo-pancreatic fluid. SPLEEN: Normal size. No focal lesion. ADRENALS: Normal; no mass. KIDNEYS AND URETERS: Normal size and contour. Patchy hypoenhancement of the renal cortices. Prominent right renal pelvis versus parapelvic cysts. No discrete hydroureteronephrosis otherwise omental motion artifact limits evaluation.. URINARY BLADDER: Normal contour. GASTROINTESTINAL TRACT: No bowel obstruction, free air, significant free fluid or abscess. APPENDIX: No inflammatory changes in region of appendix. LYMPH NODES: No lymphadenopathy. ABDOMINAL AORTA AND OTHER VESSELS: Normal caliber aorta and IVC. MUSCULOSKELETAL: No other acute or suspicious osseous abnormality. IMPRESSION: Moderate right pneumothorax with small right layering hemothorax component. Displaced right seventh, eighth, and ninth rib fractures. Patchy hypoenhancement within the renal cortices, although motion artifact limits evaluation, raising concern for acute pyelonephritis. No evidence of obstruction. THIS REPORT CONTAINS FINDINGS THAT MAY BE CRITICAL TO PATIENT CARE. The findings were verbally commun icated via telephone to Jose Huerta MD on 02/16/2025 11:35 AM.
--- NOTE | 2025-02-16 11:41 | RAD REPORT ---
EXAMINATION: ONE VIEW CHEST XR CLINICAL INDICATION: Male, 84 years old.,BLUNT CHEST TRAUMA TECHNIQUE: Frontal chest projection is submitted. Examination is limited by patient positioning and t echnique. COMPARISON: 07/29/2023 FINDINGS: Moderate right pneumothorax with 2.9 cm pleural separation. Bibasilar atelectatic changes suspected a lthough suboptimal inflation limits evaluation. Left lung otherwise clear. The heart is upper limit of normal in size. Mediastinal contours are unremarkable. IMPRESSION: Moderate right pneumothorax. THIS REPORT CONTAINS FINDINGS THAT MAY BE CRITICAL TO PATIENT CARE. The findings were verbally commun icated via telephone to Jose Huerta MD on 02/16/2025 11:38 AM.
[2025-02-16] MEDS ORDERED: ONDANSETRON 4 MG/2 ML VIAL ONE (12:47)
[2025-02-16] MEDS ORDERED: NA CHLORIDE 0.9% 1,000 ML ONE (12:48)
[2025-02-16] MEDS ORDERED: MIDAZOLAM HCL 5 ML ONE (12:48)
[2025-02-16] MEDS ORDERED: FENTANYL CITR 100 MCG/2 ML ONE (12:48)
[2025-02-16] MEDS ORDERED: CEFTRIAXONE 1000 MG/VIAL ONE (13:45)
--- NOTE | 2025-02-16 14:05 | EDPHYS ---
[facility] Age: 84 yrs Sex: Male : 1940 Arrival Date: 02/16/2025 Time: 09:53 Bed 3 Private MD: ED Physician Jose Huerta HPI: 02/16 10:33 This 84 yrs old Male presents to ER via EMS with complaints of Altered Mental Status. rn 10:33 The patient presents with confusion. Onset: The symptoms/episode began/occurred 3 rn day(s) ago. Possible causes: unknown. The patient has not experienced similar symptoms in the past. EMS reports family called out for confusion and fall. Fell yesterday. From standing. Reports bilateral rib pain from fall but no extremity injury. EMS reports patient is confused per family for 2 days now to 3 days. No fever or chills. No vomiting. No shortness of breath or cough. Patient does report dysuria and difficulty urinating but no hematuria. No abdominal or back pain. There were some medication changes recently but unclear exactly what meds were changed.. Historical: - Allergies: 10:03 Sulfa (Sulfonamide Antibiotics); [facility] - Home Meds: 13:22 ropinirole 1 mg oral tablet 1 tab 2 times per day [Active]; aspirin 81 mg Oral capsule jl7 1 cap daily [Active]; amiodarone 100 mg Oral tablet 2 times per day [Active]; atorvastatin 20 mg oral tablet 1 tab every day at bedtime [Active]; carbidopa-levodopa 50-200 mg Oral tablet, extended release 2 tabs once [Active]; De3 Dry Eye [place] Benefits 800 mg-186.67 mg-8.33 mcg oral capsule three times a day [Active]; midodrine 5 mg oral tablet 0.5 tabs 3 times per day [Active]; famotidine 40 mg Oral tablet 1 tab every day at bedtime [Active]; levothyroxine 25 mcg oral tablet 1 tab daily [Active]; fludrocortisone 0.1 mg oral tablet daily [Active]; finasteride 5 mg oral tablet 1 tab daily [Active]; - PMHx: 10:03 Parkinson's disease; Hypertensive disorder; Atrial fibrillation; kc6 - PSHx: 10:03 Cholecystectomy; Appendectomy; kc6 - Immunization history:: Adult Immunizations up to date. - Infectious Disease History:: Denies. - Social history:: Smoking status: Patient denies any tobacco usage or history of. - Family history:: not pertinent. - Hospitalizations: : No recent hospitalization is reported. ROS: 10:33 Constitutional: Negative for fever, chills, and weight loss, Neck: Negative for injury, rn pain, and swelling, Cardiovascular: Negative for palpitations, and edema, Respiratory: Negative for shortness of breath, cough, wheezing, and pleuritic chest pain, Abdomen/GI: Negative for abdominal pain, nausea, vomiting, diarrhea, and constipation, Back: Negative for injury and pain, : Positive for dysuria MS/Extremity: Negative for injury and deformity, Skin: Negative for injury, rash, and discoloration, Neuro: Positive for generalized weakness and confusion Exam: 13:51 ECG was reviewed by the Attending Physician. rn Vital Signs: 10:02 BP 206 / 80; Pulse 50; Resp 18 S; Temp 98.1(O); Pulse Ox 97% on R/A; Weight 94.8 kg kc6 (R); Height 5 ft. 10 in. (R); 10:36 BP 186 / 74; Pulse 49; Resp 16 S; Pulse Ox 99% on R/A; kc6 11:44 BP 180 / 83; Pulse 56; Resp 16 S; Pulse Ox 100% on Non-rebreather mask; kc6 12:29 BP 177 / 73; Pulse 53; Resp 18 S; Pulse Ox 100% on Non-rebreather mask; kc6 14:14 BP 152 / 67; Pulse 52; Resp 17 S; Pulse Ox 100% on Non-rebreather mask; kc6 15:21 BP 144 / 65; Pulse 51; Resp 17 S; Pulse Ox 100% on Non-rebreather mask; kc6 16:09 BP 173 / 65; Pulse 52; Resp 19 S; Pulse Ox 100% on 2 lpm NC; kc6 17:09 BP 159 / 74; Pulse 62; Resp 18 S; Pulse Ox 98% on 2 lpm NC; kc6 18:53 BP 172 / 93; Pulse 61; Resp 18 S; Pulse Ox 95% on 2 lpm NC; kc6 10:02 Body Mass Index 29.99 (94.80 kg, 177.8 cm) [facility] NIH Stroke Scale Scores: 10:05 NIHSS Score: 1 bp Procedures: 13:28 Chest tube insertion: the site was prepped using Betadine, in sterile fashion, Tube rn size: a 18 greek chest tube was inserted, introduced in right anterior lateral chest wall, to pleur-e-vac, dressed with vaseline gauze, foam tape, 4x4s, the patient tolerated the procedure well, Chest tube right side placed with Seldinger technique, air and condensation noted in initial syringe prior to wire being passed. Once chest tube placed condensation and air hiss obtained. No cough or reported pain by patient.. Procedural sedation: Pre-procedure assessment: the patient has been NPO 4 hour(s) prior to arrival, ASA physical classification: II - mild/mod systemic disease that does not interfere with daily routines, Airway assessment: able to hyperextend neck, able to maintain airway, can open mouth without difficulty, Monitoring during procedure: monitor worker, continuous pulse oximetry, nurse at bedside at all times, Medications employed: Fentanyl, 100 mcg(s), Versed, 2 mg(s), Alternatives to procedural sedation discussed Post-procedure assessment: the patient is mildly sedated, Respiratory status: even and unlabored, a reversal agent was not used, Tolerated well, speaking and awake after procedure. MDM: 09:59 Medical Screening Exam initiated rn 13:30 Management of patient was discussed with the following: Machine Cementer: Discussed case with rn Dr. Henry, requests small gauge chest tube placement for pneumothorax and then will consult on patient when admitted.. 14:03 Differential Diagnosis: pneumonia, UTI, volume depletion, Pyelonephritis, dehydration, rn electrolyte disorder, rib fracture, pneumothorax, hemothorax. Data reviewed: vital signs, nurses notes, lab test result(s), EKG, radiologic studies, CT scan, plain films, and as a result, I will admit patient. Consideration of Admission/Observation Patient was admitted/placed on observation. Escalation of care including admission/observation considered. Counseling: I had a detailed discussion with the patient and/or guardian regarding the historical points, exam findings, and any diagnostic results supporting the discharge/admit diagnosis, lab results, radiology results, the need for further work-up and treatment in the hospital. Response to treatment: the patient's symptoms have markedly improved after treatment, and as a result, I will admit patient. ED course: Lung reinflated after chest tube. Oxygen is 100%, patient improved and wide-awake now. Family in room. Admitted to Dr. Bray for pyelonephritis/urinary tract infection with pneumothorax as a result of fall.. 02/16 10:01 Order name: Blood Culture Adult (2) rn 02/16 10:01 Order name: CBC with Diff; Complete Time: 11:28 rn 02/16 10:01 Order name: CMP; Complete Time: 11:28 rn 02/16 10:01 Order name: Lactate w/ 2H reflex if indic.; Complete Time: 11:28 rn 02/16 10:01 Order name: Protime (+inr); Complete Time: 11:28 rn 02/16 10:01 Order name: Ptt, Activated; Complete Time: 11:28 rn 02/16 10:01 Order name: Urinalysis w/ reflexes rn 02/16 16:06 Order name: Basic Metabolic Panel EDOK 02/16 16:06 Order name: Basic Metabolic Panel EDOK 02/16 16:06 Order name: CBC with Automated Diff EDOK 02/16 16:06 Order name: CBC with Automated Diff EDOK 02/16 10:01 Order name: Chest Single View XRAY; Complete Time: 12:01 rn 02/16 10:05 Order name: Chest Abdomen Pelvis W Cont; Complete Time: 12:01 EDOK 02/16 10:06 Order name: Head C Spine Mpr Wo Con; Complete Time: 12:01 EDOK 02/16 13:27 Order name: CXR XRAY; Complete Time: 15:17 rn 02/16 16:06 Order name: Chest Single View EDOK 02/16 16:06 Order name: Chest Single View EDOK 02/16 15:59 Order name: CONS Physician Consult EDOK 02/16 10:01 Order name: IV Start; Complete Time: 10:05 rn 02/16 10:01 Order name: Accucheck; Complete Time: 10:36 rn 02/16 10:01 Order name: Cardiac monitoring; Complete Time: 10:15 rn 02/16 10:01 Order name: EKG - Nurse/Tech; Complete Time: 10:15 rn 02/16 10:01 Order name: IV Saline Lock - Large Bore; Complete Time: 10:15 rn 02/16 10:01 Order name: Labs collected and sent; Complete Time: 10:36 rn 02/16 10:01 Order name: O2 Per Protocol; Complete Time: 10:05 rn 02/16 10:01 Order name: O2 Sat Monitoring; Complete Time: 10: rn 02/16 10:01 Order name: Vital Signs; Complete Time: 10: rn 02/16 11:28 Order name: Oxygen: by facemask for pneumo; Complete Time: 11:43 rn EC:51 Rate is 52 beats/min. Rhythm is regular. QRS [place] is Normal. [place] interval is normal. No rn Q waves. T waves are Inverted in leads II, III, aVF, V4, V5, V6. No ST changes noted. Clinical impression: Sinus bradycardia. Interpreted by me. Reviewed by me. Administered Medications: 12:52 Drug: Ondansetron IVP 4 mg IVP once; over 2 minutes Route: IVP; Site: left hand; kc6 13:33 Follow up: Response: No adverse reaction kc6 13:00 Drug: fentaNYL (PF) IVP 100 mcg IVP once Route: IVP; Site: left hand; kc6 14:16 Follow up: Response: No adverse reaction; Pain is decreased; RASS: Drowsy (-1) kc6 13:06 Drug: Midazolam IVP or IV 3 mg IVP once Route: IVP; Site: left hand; kc6 14:15 Follow up: Response: No adverse reaction; RASS: Moderate sedation (-3) kc6 13:50 Drug: Rocephin IV 1 grams IV at calculated rate once; Given slow IV push per pharmacy kc6 instructions Route: IV; Rate: calculated rate; Site: left hand; 14:16 Follow up: Response: No adverse reaction; IV Status: Completed infusion; IV Intake: [id number] 16:08 Drug: NS 0.9% IV 1000 ml IV at 1000 ml once; to be given as a bolus over 60 minutes kc6 Route: IV; Rate: 1000 ml; Site: right forearm; 18:54 Follow up: Response: No adverse reaction; IV Status: Completed infusion; IV Intake: kc6 1708ml Disposition: 14:03 Critical Care:. rn Disposition Summary: 02/16/25 14:04 Hospitalization Ordered Notes: Hospitalization Status: Inpatient Admission rn Provider: Valerie Bray rn Location: Intensive Care Unit rn Condition: Stable rn Problem: new rn Symptoms: have improved rn Bed/Room Type: Standard rn Room Assignment: 2-(02/16/25 16:32) aa5 Diagnosis - Traumatic pneumothorax rn - Pyelonephritis acute rn Forms: - Medication Reconciliation Form rn - SBAR form rn - Leadership Thank You Letter rn radiation time excluding procedures: 14:03 Critical care time: Bedside Care: 30 minutes, Consultation: 5 minutes. Total time: 35 rn minutes NIH Stroke Scale - NIH Stroke Score Date: 02/16/2025 Time: 10:05 Total Score = 1 10. Dysarthria (speech clarity - read or repeat words) - 0(Normal) 11. Extinction and Inattention (visual/tactile/auditory/spatial/personal) - 0(No abnormality) 1a. Level of Consciousness (LOC) - 0(Alert) 1b. Level of Consciousness (LOC) (Month \T\ Age) - 1(One) 1c. LOC Commands (Open \T\ Closes Eyes/Air Valve Repairer) - 0(Both) 2. Best Gaze (Lateral Gaze Paresis) - 0(Normal) 3. Visual Field Loss - 0(No visual loss) 4. Facial Palsy - 0(Normal) 5a. Left Arm: Motor (10-second hold) - 0(No drift) 5b. Right Arm: Motor (10-second hold) - 0(No drift) 6a. Left Leg: Motor (5-second hold - always test supine) - 0(No drift) 6b. Right Leg: Motor (5-second hold - always test supine) - 0(No drift) 7. Limb Ataxia (finger/nose \T\ heel/hsu - test with eyes open) - 0(Absent) 8. Sensory Loss (pinprick arms/legs/face) - 0(Normal) 9. Best Language: Aphasia (description/naming/reading) - 0(No aphasia) Initials: bp Signatures: Dispatcher [employer] EDMS Jose Huerta MD MD rn Calderon, Audri RN RN [id number] Oumou Cadena RN RN [id number] Sierra Stone RN RN [id number] Corrections: (The following items were deleted from the chart) 10:02 10:01 BLOOD CULTURE*+BA.LAB.BRZ ordered. EDMS EDMS 10:02 10:01 CBC+H.LAB.BRZ ordered. EDMS EDMS 10:02 10:01 COMPREHENSIVE METABOLIC PANEL+C.LAB.BRZ ordered. EDMS EDMS 10:02 10:01 LACTATE+C.LAB.BRZ ordered. EDMS EDMS 10:02 10:01 PROTIME (+INR)+COAG.LAB.BRZ ordered. EDMS EDMS 10:02 10:01 PTT, ACTIVATED+COAG.LAB.BRZ ordered. EDMS EDMS 10:02 10:01 Urinalysis+U.LAB.BRZ ordered. EDMS EDMS 10:02 10:02 Chest Single View+RAD.RAD.BRZ ordered. EDMS EDMS 10:03 10:01 Head C Spine CAP W Con+CT.RAD.BRZ ordered. EDMS EDMS 13:33 13:28 Chest tube insertion: the site was prepped using Betadine, in sterile rn fashion, Tube size: a 18 greek chest tube was inserted, introduced in right anterior lateral chest wall, to pleur-e-vac, dressed with vaseline gauze, foam tape, 4x4s, the patient tolerated the procedure well, rn 16:32 14:04 rn aa5
--- NOTE | 2025-02-16 14:05 | ER ---
Nurse's Notes [facility] Name: Good Pinzon Age: 84 yrs Sex: Male : 1940 Arrival Date: 02/16/2025 Time: 09:53 Bed 3 Private MD: Diagnosis: Traumatic pneumothorax;Pyelonephritis acute Presentation: 02/16 10:02 Chief complaint: EMS states: they were toned for AMS and s/p fall yesterday. unknown kc6 LOC. Coronavirus screen: At this time, the client does not indicate any symptoms associated with coronavirus-19. Ebola Screen: No symptoms or risks identified at this time. Initial Sepsis Screen: Does the patient meet any 2 criteria? No. Patient's initial sepsis screen is negative. Does the patient have a suspected source of infection? No. Patient's initial sepsis screen is negative. Risk Assessment: Do you want to hurt yourself or someone else? Patient reports no desire to harm self or others. Onset of symptoms was February 16, 2025. 10:02 Method Of Arrival: EMS: [facility] kc6 10:02 Acuity: ISMAEL 3 6 10:03 Care prior to arrival: IV initiated. 20 GA, in the right forearm, Glucose check: 119. kc6 Triage Assessment: 10:05 General: Appears in no apparent distress. comfortable, Behavior is calm, cooperative. bp Pain: Denies pain. EENT: No deficits noted. Neuro: Level of Consciousness is awake, alert, obeys commands, Oriented to person, place. Cardiovascular: Rhythm is sinus bradycardia. Respiratory: No deficits noted. GI: No signs and/or symptoms were reported involving the gastrointestinal system. : No signs and/or symptoms were reported regarding the genitourinary system. Derm: No deficits noted. Musculoskeletal: No deficits noted. Historical: - Allergies: 10:03 Sulfa (Sulfonamide Antibiotics); kc6 - Home Meds: 13:22 ropinirole 1 mg oral tablet 1 tab 2 times per day [Active]; aspirin 81 mg Oral capsule jl7 1 cap daily [Active]; amiodarone 100 mg Oral tablet 2 times per day [Active]; atorvastatin 20 mg oral tablet 1 tab every day at bedtime [Active]; carbidopa-levodopa 50-200 mg Oral tablet, extended release 2 tabs once [Active]; De3 [employer] [facility] [place] Benefits 800 mg-186.67 mg-8.33 mcg oral capsule three times a day [Active]; midodrine 5 mg oral tablet 0.5 tabs 3 times per day [Active]; famotidine 40 mg Oral tablet 1 tab every day at bedtime [Active]; levothyroxine 25 mcg oral tablet 1 tab daily [Active]; fludrocortisone 0.1 mg oral tablet daily [Active]; finasteride 5 mg oral tablet 1 tab daily [Active]; - PMHx: 10:03 Parkinson's disease; Hypertensive disorder; Atrial fibrillation; kc6 - PSHx: 10:03 Cholecystectomy; Appendectomy; kc6 - Immunization history:: Adult Immunizations up to date. - Infectious Disease History:: Denies. - Social history:: Smoking status: Patient denies any tobacco usage or history of. - Family history:: not pertinent. - Hospitalizations: : No recent hospitalization is reported. Screenin:05 [facility] ED Fall Risk Assessment (Adult) History of falling in the last 3 months, kc6 including since admission Yes- single mechanical fall (1 pt) Confusion or Disorientation No (0 pts) Intoxicated or Sedated No (0 pts) Impaired Gait No (0 pts) Mobility Assist Device Used No (0 pt) Altered Elimination No (0 pt) Score/Fall Risk Level 0 - 2 = Low Risk Oriented to surroundings, Maintained a safe environment, Educated pt \\T\\ family on fall prevention, incl call for assistance when getting out of bed. Abuse screen: Denies threats or abuse. Denies injuries from another. Nutritional screening: No deficits noted. Tuberculosis screening: No symptoms or risk factors identified. Assessment: 10:37 General: Appears in no apparent distress. uncomfortable, well groomed, well developed, kc6 Behavior is calm, cooperative, appropriate for age. Pain: Complains of pain in right lateral anterior chest and left lateral anterior chest. Neuro: Level of Consciousness is awake, alert, obeys commands, Oriented to person, place, time, situation, Appropriate for age intermittent confusion, poor historian. Cardiovascular: Denies chest pain, shortness of breath, Heart tones S1 S2 present Capillary refill < 3 seconds Rhythm is sinus bradycardia. Respiratory: Reports cough that is productive, pain with cough pain with respiration Airway is patent Trachea midline Respiratory effort is even, unlabored, Respiratory pattern is regular, symmetrical. GI: No signs and/or symptoms were reported involving the gastrointestinal system. : No signs and/or symptoms were reported regarding the genitourinary system. Denies burning with urination, urinary frequency, urgency. EENT: No signs and/or symptoms were reported regarding the EENT system. Derm: Skin is intact, is fragile, is thin, with poor turgor Skin is pink, warm \\T\\ dry. Bruising that is green, yellow, on left knee. Musculoskeletal: No signs and/or symptoms reported regarding the musculoskeletal system. Circulation, motion, and sensation intact. Range of motion: intact in all extremities, Swelling present in left knee. 11:44 Reassessment: Patient appears in no apparent distress at this time. No changes from kc6 previously documented assessment. Patient and/or family updated on plan of care and expected duration. Pain level reassessed. Patient is alert, oriented x 3, equal unlabored respirations, skin warm/dry/pink. 12:29 Reassessment: Patient appears in no apparent distress at this time. No changes from kc6 previously documented assessment. Patient and/or family updated on plan of care and expected duration. Pain level reassessed. 13:00 Reassessment: please see vital signs flow sheet for conscious sedation. kc6 13:35 Reassessment: Patient appears in no apparent distress at this time. No changes from kc6 previously documented assessment. Patient and/or family updated on plan of care and expected duration. Pain level reassessed. 14:14 Reassessment: Patient appears in no apparent distress at this time. No changes from kc6 previously documented assessment. Patient and/or family updated on plan of care and expected duration. Pain level reassessed. family at bedside. 15:20 Reassessment: Patient appears in no apparent distress at this time. No changes from kc6 previously documented assessment. Patient and/or family updated on plan of care and expected duration. Pain level reassessed. Patient states feeling better. 16:09 Reassessment: Patient appears in no apparent distress at this time. No changes from kc6 previously documented assessment. Patient and/or family updated on plan of care and expected duration. Pain level reassessed. Patient is alert, oriented x 3, equal unlabored respirations, skin warm/dry/pink. 16:40 Reassessment: attempted to call report to RAMSES Maldonado in the ICU. states he will call back kc6 for report because he is "in the process of transferring out a patient with potential measels.". 17:08 Reassessment: Patient appears in no apparent distress at this time. No changes from [facility] previously documented assessment. Patient and/or family updated on plan of care and expected duration. Pain level reassessed. Patient is alert, oriented x 3, equal unlabored respirations, skin warm/dry/pink. 18:53 Reassessment: Patient appears in no apparent distress at this time. No changes from [facility] previously documented assessment. Patient and/or family updated on plan of care and expected duration. Pain level reassessed. Patient is alert, oriented x 3, equal unlabored respirations, skin warm/dry/pink. 18:54 Reassessment: NURSE TO NURSE REPORT GIVEN TO RAMSES MALDONADO IN THE ICU. [facility] Vital Signs: 10:02 BP 206 / 80; Pulse 50; Resp 18 S; Temp 98.1(O); Pulse Ox 97% on R/A; Weight 94.8 kg kc (R); Height 5 ft. 10 in. (R); 10:36 BP 186 / 74; Pulse 49; Resp 16 S; Pulse Ox 99% on R/A; kc6 11:44 BP 180 / 83; Pulse 56; Resp 16 S; Pulse Ox 100% on Non-rebreather mask; kc6 12:29 BP 177 / 73; Pulse 53; Resp 18 S; Pulse Ox 100% on Non-rebreather mask; kc6 14:14 BP 152 / 67; Pulse 52; Resp 17 S; Pulse Ox 100% on Non-rebreather mask; kc6 15:21 BP 144 / 65; Pulse 51; Resp 17 S; Pulse Ox 100% on Non-rebreather mask; kc6 16:09 BP 173 / 65; Pulse 52; Resp 19 S; Pulse Ox 100% on 2 lpm NC; kc6 17:09 BP 159 / 74; Pulse 62; Resp 18 S; Pulse Ox 98% on 2 lpm NC; kc6 18:53 BP 172 / 93; Pulse 61; Resp 18 S; Pulse Ox 95% on 2 lpm NC; kc6 10:02 Body Mass Index 29.99 (94.80 kg, 177.8 cm) [facility] NIH Stroke Scale Scores: 10:05 NIHSS Score: 1 bp ED Course: 09:57 Patient arrived in ED. aa5 09:59 Jose Huerta MD is Attending Physician. rn 10:02 Sierra Stone RN is Primary Nurse. kc6 10:03 Triage completed. kc6 10:03 Arm band placed on. kc6 10:04 Patient has correct armband on for positive identification. Bed in low position. Call kc6 light in reach. Side rails up X2. Adult w/ patient. Pulse ox on. NIBP on. Door closed. Noise minimized. Lights dimmed. Warm blanket given. Pillow given. Verbal reassurance given. 10:04 Maintain EMS IV. Dressing intact. Good blood return noted. Site clean \\T\\ dry. Gauge \\T\\ lauro 6 site: 20G RFA. Flushed with 10 mL NS. Patient maintains SpO2 saturation greater than 95% on room air. 10:28 Chest Single View XRAY In Process Unspecified. EDMS 10:36 Inserted saline lock: 20 gauge in left hand, using aseptic technique. Blood collected. kc6 Flushed with 10 mL NS. 11:23 Chest Abdomen Pelvis W Cont In Process Unspecified. EDMS 11:23 Head C Spine Mpr Wo Con In Process Unspecified. EDMS 11:28 Oxygen administration via non-rebreather mask \\T\\ 15L/min Response to oxygen therapy: kc6 symptoms improved. 12:08 Provided Education on: Conscious Sedation, Procedure Consent. kc6 13:00 One-on-one care X 45 minutes. kc6 13:00 Assist provider with chest tube insertion with 18 Fr. in right lateral chest wall. Tray kc6 was set up. Attached to pleTaskdoer-bContext-vac. Chest tube inserted by Jose Huerta MD Placement verified by CXR, fluctuation of fluid, return of air, Dressed with Vaseline gauze, foam tape, silk tape, 4X4s, Patient tolerated well. 13:42 CXR XRAY In Process Unspecified. EDMS 14:04 Valerie Bray MD is Hospitalizing Provider. rn 17:08 Repositioned patient. Cleaned of incontinence. Linen changed. kc6 19:00 Report given to RAMSES Dong \\T\\ RAMSES Valdivia. kc6 20:10 Patient admitted, IV remains in place. bm8 Administered Medications: 12:52 Drug: Ondansetron IVP 4 mg IVP once; over 2 minutes Route: IVP; Site: left hand; kc6 13:33 Follow up: Response: No adverse reaction kc6 13:00 Drug: fentaNYL (PF) IVP 100 mcg IVP once Route: IVP; Site: left hand; kc6 14:16 Follow up: Response: No adverse reaction; Pain is decreased; RASS: Drowsy (-1) kc6 13:06 Drug: Midazolam IVP or IV 3 mg IVP once Route: IVP; Site: left hand; kc6 14:15 Follow up: Response: No adverse reaction; RASS: Moderate sedation (-3) kc6 13:50 Drug: Rocephin IV 1 grams IV at calculated rate once; Given slow IV push per pharmacy kc6 instructions Route: IV; Rate: calculated rate; Site: left hand; 14:16 Follow up: Response: No adverse reaction; IV Status: Completed infusion; IV Intake: [id number] 16:08 Drug: NS 0.9% IV 1000 ml IV at 1000 ml once; to be given as a bolus over 60 minutes kc Route: IV; Rate: 1000 ml; Site: right forearm; 18:54 Follow up: Response: No adverse reaction; IV Status: Completed infusion; IV Intake: kc6 1708ml Medication: 20:10 VIS not applicable for this client. bm8 Intake: 14:16 IV: 10ml; Total: 10ml. kc6 18:54 IV: 1708ml; Total: 1718ml. 6 Outcome: 14:04 Decision to Hospitalize by Provider. rn 18:53 Condition: stable kc6 20:10 Admitted to ICU accompanied by nurse, accompanied by tech, via stretcher, room icu 2, [facility] on monitor, 20:10 Instructed on the need for admit, Demonstrated understanding of instructions, follow-up care, medications, 20:11 Patient left the ED. bm8 NIH Stroke Scale - NIH Stroke Score Date: 02/16/2025 Time: 10:05 Total Score = 1 10. Dysarthria (speech clarity - read or repeat words) - 0(Normal) 11. Extinction and Inattention (visual/tactile/auditory/spatial/personal) - 0(No abnormality) 1a. Level of Consciousness (LOC) - 0(Alert) 1b. Level of Consciousness (LOC) (Month \\T\\ Age) - 1(One) 1c. 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 Best Gaze (Lateral Gaze Paresis) - 0(Normal) 3. Visual Field Loss - 0(No visual loss) 4. Facial Palsy - 0(Normal) 5a. Left Arm: Motor (10-second hold) - 0(No drift) 5b. Right Arm: Motor (10-second hold) - 0(No drift) 6a. Left Leg: Motor (5-second hold - always test supine) - 0(No drift) 6b. Right Leg: Motor (5-second hold - always test supine) - 0(No drift) 7. Limb Ataxia (finger/nose \\T\\ heel/hsu - test with eyes open) - 0(Absent) 8. Sensory Loss (pinprick arms/legs/face) - 0(Normal) 9. Best Language: Aphasia (description/naming/reading) - 0(No aphasia) Initials: bp Signatures: Dispatcher [employer] EDJose Price MD MD rn Calderon, Audri, RN RN aa5 Oumou Cadena RN RN jl7 Ede Summers RN RN bp Sierra Stone RN RN kc6 Iker Herzog, RN RN bm8 Corrections: (The following items were deleted from the chart) 11:44 11:23 Oxygen administration via non-rebreather mask \\T\\ 15L/min Response to kc6 oxygen therapy: symptoms improved. kc6
--- NOTE | 2025-02-16 14:56 | RAD REPORT ---
EXAMINATION: ONE VIEW CHEST XR CLINICAL INDICATION: Male, 84 years old.,Pneumothorax;Post chest tube TECHNIQUE: Frontal chest projection is submitted. Examination is limited by patient positioning and t echnique. COMPARISON: Same date chest radiograph at 1015 hours FINDINGS: Right thoracostomy tube has been placed terminating in the suprahilar region. Minimal apical residual pneumothorax with pleural separation measuring 2 to 3 mm. mild right basilar atelectatic changes or residual trace effusion. Mild emphysematous changes along the right chest wall. Left lung is clear apart from basilar atelectatic changes. The heart is upper limit of normal in size. Mediastinal contours are otherwise unchanged. IMPRESSION: Interval placement of right thoracostomy tube with marked interval reduction of right-sided pneumotho rax as above.
[2025-02-16] MEDS ORDERED: ONDANSETRON 4 MG/2 ML VIAL IV PRN (16:04)
[2025-02-16] MEDS: MORPHINE 2 MG/ML SYR IV PRN (21:14)
[2025-02-16] MEDS: D5.45NS W/KCL 20MEQ 1,000 ML IV SCH (21:14)
[2025-02-17 01:00] VITALS: BMI 29.9
[2025-02-17 02:10] LABS: Specific Gravity > 1.030 (1.005-1.030); Sqamous Epithelial <5 /HPF (None Seen); Urine Bacteria None Seen /HPF (<20); Urine Bilirubin NEGATIVE (Negative); Urine Blood Negative (Negative); Urine Clarity Clear (Clear); Urine Color Light-Yellow (Yellow); Urine Culture Reflex Order NOT NEEDED; Urine Glucose NEGATIVE (Negative); Urine Ketones 1+ (Negative); Urine Microscopic Reflex YN ORDER UMIC; Urine Mucus Slight /HPF (None Seen); Urine Nitrite NEGATIVE (Negative); Urine Protein TRACE (Negative); Urine RBC None Seen /HPF (None Seen); Urine Urobilinogen Normal (Normal); Urine WBC <5 /HPF (<5); Urine pH 5.5 (5.0-7.0)
[2025-02-17] MEDS: CEFTRIAXONE 1,000 MG in NA CHLORIDE 0.9% 50 ML IVPB SCH (02:17)
[2025-02-17 05:16] LABS: Absolute Basophils 0.1 K/uL (0-0.5); Absolute Eosinophils 0.1 K/uL (0-0.5); Absolute Lymphocytes (CBC) 1.7 K/uL (0.7-4.9); Absolute Neutrophil 4.1 K/uL (1.8-8.0); Basophils % 1.2 % (0-1.3); Eosinophils % 2.1 % (0-4.4); Hemoglobin 10.4 g/dL (13.6-17.9); Lymphocytes % 24.5 % (15.3-44.8); MCH 29.2 pg (27.0-35.0); MCHC 33.6 g/dL (32.0-36.0); MPV 7.8 fL (7.6-11.3); Monocytes % 13.9 % (3.3-12.3); Neutrophils % 58.3 % (41.7-73.7); Nucleated Red Blood Cells % 0.1 % (0-0); Platelets 155 thou/uL (152-406); RBC Red Blood Cell Count 3.56 M/uL (4.33-5.43); Red Cell Distribution Width 16.3 % (12.1-15.2)
[2025-02-17 05:27] LABS: Anion Gap 6.8 mEq/L (5.0-15.0); Potassium 3.8 mEq/L (3.5-5.1)
[2025-02-17] MEDS ORDERED: CEFTRIAXONE 1,000 MG in NA CHLORIDE 0.9% 50 ML IVPB SCH (06:00)
--- NOTE | 2025-02-17 06:00 | HP ---
Date of Admission: 02/16/2025 Chief Complaint: Fall and weakness. History Of Present Illness: This is an 84-year-old male patient who has multiple chronic medical problems, lives at home with his . He fell down on the bathroom floor today and the patient's called the patient's son who came to assist, and subsequently, patient was brought into emergency room where he was evaluated by ER physician and I also evaluated him and subsequently he was admitted to the hospital. The patient was found to have rib fractures along with pneumothorax requiring chest tube placement. The patient's son reports that last week patient saw his neurologist who increased the dose of one particular medication that he is not aware of the name, but since that time, he started to have more generalized weakness and subsequently family contacted neurologist and whatever the changes were made on the medications were canceled by neurologist, but he continued to have generalized weakness problem. No fever, cough, congestion, shortness of breath, or hemoptysis. No abdominal pain, nausea, vomiting, diarrhea. Allergies: SULFA. Medications: List reviewed from office record. 1. Aspirin 81 mg, take 1 tablet by mouth daily with food. 2. Atorvastatin 20 mg, take 1 tablet by mouth daily at bedtime. 3. Carbidopa/Levodopa 4. Famotidine 40 mg, take 1 tablet by mouth daily at bedtime. 5. Fludrocortisone 0.1 mg, take 1 tablet by mouth daily. 6. Levothyroxine 50 mcg, take 1 tablet by mouth daily. 7. Ropinirole 1 mg, take 1 tablet by mouth two times a day. 8. Metamucil Fiber Gummies, take 3 gummies by mouth daily. Review of Systems: Constitutional: As mentioned above. All other systems reviewed and negative. Past Medical History: Significant for Parkinson disease; orthostatic hypotension; hyperlipidemia; paroxysmal atrial fibrillation; gastroesophageal reflux disease; nonalcoholic fatty liver disease; renal cyst; chronic kidney disease; benign prostatic hypertrophy; anemia; provoked DVT of leg in 1988, 2000, and 2006, now on chronic anticoagulation therapy for atrial fibrillation. Past Surgical History: Significant for hernia repair, appendectomy, cholecystectomy done last week, and surgery on both knees. Family History: Father and had prostate cancer. Mother and had colon cancer. Brother and had leukemia. Social History: Prior history of smoking. Use of alcohol occasiona Physical Examination: Vital Signs: Height 5 feet 10 inches, weight 209 pounds. Temperature 98.1, pulse 50, respiratory rate 18, blood pressure 206/80, oxygen saturation 97%. General: Awake, alert, oriented, not in distress. HEENT: Head atraumatic, normocephalic. Conjunctivae nonerythematous. Sclerae white. Mouth, no thrush or edema noted. Ears/Nose, no mass, lesion, discharge noted. Neck: Supple. No JVD, lymph nodes, bruit, thyromegaly noted. Lungs: Bilateral good equal air entry. Clear to auscultation. No rhonchi. No rales. Heart: Normal heart sounds, no murmur or gallop. Abdomen: Soft, bowel sounds normal. No guarding, rigidity, tenderness, mass, hepatosplenomegaly, distention, or bruit noted. Extremities: No leg edema. No calf tenderness. Skin: No rash, ulcer, cellulitis. Lymphatics: No lymph node enlargement in neck, supraclavicular, infraclavicular region. Neuro: No focal neurological deficit. Chest: Unremarkable. External Genitalia: Deferred. Rectal: Deferred. Laboratory Data: WBC 8.2, hemoglobin 12, platelets 177. Sodium 139, potassium 3.9, chloride 106, bicarb 29, BUN 17, creatinine 1.27, glucose 98. Liver function tests unremarkable. Lactic acid 1.9. Urinalysis unremarkable. CAT scan of brain no acute intracranial abnormality, CAT scan of cervical spine no acute changes, stable degenerative changes, chest x-ray moderate right pneumothorax, CAT scan of chest, abdomen and pelvis moderate right pneumothorax, small right hemothorax, displaced right 7th, 8th and 9th rib fractures. EKG sinus bradycardia, incomplete right bundle branch block, left anterior fascicular block, ST-T abnormality in inferior and anterolateral leads.. Impression: 1. Pneumothorax. 2. Rib fracture. 3. Generalized weakness. 4. Debility. 5. Parkinson's disease. 6. Orthostatic hypotension. 7. Paroxysmal atrial fibrillation. 8. Chronic anticoagulation therapy. 9. Nonalcoholic fatty liver disease. 10. Gastroesophageal reflux disease. 11. Hyperlipidemia. 12. Benign prostatic hypertrophy with lower urinary tract symptoms. Plan: We will go ahead and admit the patient to hospital for further evaluation and management of this problem. The patient is appropriate for inpatient and is expected to spend 2 midnights in the hospital. We will go ahead and consult Dr. Henry from General Surgery for management of chest tube for the pneumothorax. The patient had a chest tube placed in the emergency room ER physician and will provide pain medication as needed order. For his Parkinson disease, we will continue his home medications per order. No need for further intervention. For his orthostatic hypotension, we will continue his midodrine as he takes at home and need for further intervention. The patient is on chronic anticoagulation therapy for atrial fibrillation and we will start that tomorrow. For his atrial fibrillation, no need for any further intervention. For atrial fibrillation, we will continue his other medication as he takes at home, which is antiarrhythmic medication. For benign prostatic hypertrophy, he is on tamsulosin, which we will continue that. No need for further intervention. Total time spent 80 minutes including evaluation and management for this hospital admission, communication with ER physician, review of emergency room visit record, and review of last office visit record and last hospital admission record from 04/17/2023. CORBY/ROSIE Voice ID: [id number] MTDVíctor
[2025-02-17] MEDS ORDERED: MAGNESIUM HYDROXIDE 8% 30 ML PO PRN (07:26)
--- NOTE | 2025-02-17 07:47 | RAD REPORT ---
EXAMINATION: ONE VIEW CHEST XR CLINICAL INDICATION: Follow up admission chest Xray TECHNIQUE: Frontal chest projection is submitted. Examination is limited by patient positioning and t echnique. COMPARISON: 02/16/2025 FINDINGS: Right-sided chest tube remains in place. Mild bilateral pulmonary opacities are seen, greatest in the right lower lobe probably representing mild pulmonary edema. Atelectasis or developing infiltrate possible right base. The heart is mildly prominent in size. Right-sided rib fractures again noted.
[2025-02-17] MEDS: FINASTERIDE 5 MG TAB PO SCH (09:00)
[2025-02-17] MEDS: FLUDROCORTISONE 0.1 MG TAB PO SCH (09:00)
[2025-02-17] MEDS: CEFAZOLIN 1 GM in NA CHLORIDE 0.9% 50 ML IVPB SCH (09:00)
--- NOTE | 2025-02-17 09:36 | CON ---
Date of Consultation: 02/16/2025 Reason For Consultation: Pneumothorax. History Of Present Illness: The patient is an 84-year-old gentleman with multiple medical problems, who fell in his bathroom yesterday and sustained injury to his right chest consisting of 3 rib fractu res and moderate pneumothorax and a trace hemothorax. The patient was brought to the ER and a chest tube was placed by the ER physician, and I was consulted to manage the chest tube. The patient is a little confused this morning. His son is at the bedside and states this is his normal state for the most part. He has had a history of urinary tract infection recently as well. There is no sore throa t, runny nose, cough, headaches, or dizziness. No chest pain. No fever or chills. Review of Systems: Otherwise unremarkable. Past Medical History: Significant for Parkinson disease; orthostatic hypotension; atrial fibrillatio n, on chronic anticoagulation therapy; GERD; hyperlipidemia; BPH. Past Surgical History: Significant for cholecystectomy and appendectomy. Allergies: INCLUDE SULFA. Social History: The patient does not smoke or drink alcohol. Family History: Noncontributory. Physical Examination: Vital Signs: Stable. He is currently afebrile. General: He is awake and confused. Head and Neck: Trachea midline. No neck masses. No JVD. Throat clear. Neck is supple. Chest: Clear. Heart: S1 and S2. Abdomen: Soft. Extremities: Neurovascularly intact. Neuro: Nonfocal. Skin: On the right chest, there is a chest tube in place, secured well, attached to a Pleur-evac wit h no air leak. Laboratory Data: Reviewed. White count is 7, H and H are 10.4 and 31.0, platelets are 155. INR is 1.16. Chemistry reviewed, essentially unremarkable. Chest x-ray this morning does not show any evid ence of pneumo. Chest tube is in good place. Assessment: 84-year-old gentleman, status post fall with multiple rib fractures and pneumothorax, st atus post chest tube placement for that. Recommendations: We will take the patient off obstruction and get another x-ray tomorrow morning. S hould it have no pneumo, then we will go ahead and remove the chest tube tomorrow. Continue pain man agement. We will order oxygen, incentive spirometry and follow this patient while in the hospital. /MODL Voice ID: [id number] Report ID: [id number]
[2025-02-17] MEDS: MIDODRINE HCL 5 MG TABLET PO SCH (10:44)
--- NOTE | 2025-02-17 10:50 | EKG ---
Test Date: 2025-02-16 Test Time: 10:13:17 Heel Caser: VENKATESH MEASUREMENT RESULTS: Intervals: Rate: 52 IN: 224 QRSD: 102 QT: 482 QTc: 448 [place]: P: 79 IN: 224 QRS: -64 T: -71 INTERPRETIVE STATEMENTS: Sinus bradycardia with 1st degree AV block Incomplete right bundle branch block Left anterior fascicular block ST & T wave abnormality, consider inferior ischemia ST & T wave abnormality, consider anterolateral ischemia Abnormal ECG Compared to ECG 07/25/2023 16:08:19 Incomplete right bundle-branch block now present Possible ischemia now present Sinus rhythm no longer present Prolonged QT interval no longer present ST (T wave) deviation still present Electronically Signed On 02-17-25 10:47:52 CDT by Suresh Dunaway
[2025-02-17] MEDS: AMLODIPINE 5 MG TAB PO ONE (12:21)
[2025-02-17] MEDS: CARBIDOPA/LEVODOPA 25/100 TAB PO ONE (12:22)
[2025-02-17] MEDS: CARBIDOPA/LEVODOPA 25/100 TAB PO SCH (15:33)
[2025-02-17] MEDS ORDERED: LORazepam 2 MG/ML VIAL IV PRN (17:56)
[2025-02-17] MEDS: ENOXAPARIN 40 MG/0.4 ML SQ SCH (19:06)
[2025-02-17] MEDS: METOPROLOL TAR 25 MG TAB PO SCH (19:06)
[2025-02-17] MEDS: FAMOTIDINE 20 MG TAB PO SCH (20:29)
[2025-02-17] MEDS: ATORVASTATIN 20 MG TAB PO SCH (20:29)
[2025-02-17] MEDS: DOCUSATE NA/SENNA CONC 1 TAB PO SCH (20:30)
--- NOTE | 2025-02-17 23:42 | PN ---
Date of Progress Note: 02/17/2025 Subjective: The patient was seen this morning for followup. He was lying in bed in ICU. No new com plaints or problems reported. He was sleeping. Had an uneventful night. Objective: Vital Signs: Reviewed. HEENT: Unremarkable. Lungs: Clear to auscultation. Heart: Sounds normal. Abdomen: Soft. Bowel sounds normal. No guarding, rigidity, tenderness, or distention. Extremities: No leg edema. Laboratory Data: Today, WBC 7, hemoglobin 10.4, platelets 155. Sodium 140, potassium 3.8, chloride 107, bicarb 30, BUN 13, creatinine 1.12, glucose 125. Impression: 1. Pneumothorax. 2. Multiple right-sided hip fractures. 3. Hypertension. 4. Parkinson disease. 5. Orthostatic hypotension. Plan: We will go ahead and continue to follow with Dr. Herny for chest tube management for pneumotho rax. We will continue pain medications per order. We will go ahead and continue home medications pe r order. Midodrine was ordered as he takes at home for orthostatic hypotension, but today he has not been able to get out of bed and in fact he had high blood pressure throughout the day today. Kel salazar this morning, amlodipine was ordered and later this evening, metoprolol 25 mg twice a day was start ed and we will discontinue midodrine at this point. The patient had lot of agitation, and Ativan was ordered to help control that. I will see him tomorrow for followup. Continue levothyroxine per order and DVT prophylaxis per order. CORBY/MODL Voice ID: [id number] Report ID: [id number]
[2025-02-18] MEDS: LEVOTHYROXINE SOD 0.05 MG TABLET PO SCH (05:40)
[2025-02-18 05:44] LABS: Absolute Basophils 0.1 K/uL (0-0.5); Absolute Eosinophils 0.1 K/uL (0-0.5); Absolute Lymphocytes (CBC) 1.8 K/uL (0.7-4.9); Absolute Monocytes 1.9 K/uL (0.1-1.3); Absolute Neutrophil 6.4 K/uL (1.8-8.0); Basophils % 0.8 % (0-1.3); Eosinophils % 0.8 % (0-4.4); Hematocrit 30.4 % (39.6-49.0); Hemoglobin 10.3 g/dL (13.6-17.9); Lymphocytes % 17.4 % (15.3-44.8); MCH 29.4 pg (27.0-35.0); MCHC 33.8 g/dL (32.0-36.0); MPV 8.9 fL (7.6-11.3); Monocytes % 18.4 % (3.3-12.3); Neutrophils % 62.6 % (41.7-73.7); Platelets 125 thou/uL (152-406); Red Cell Distribution Width 16.1 % (12.1-15.2)
[2025-02-18 06:08] LABS: Anion Gap 7.1 mEq/L (5.0-15.0); Magnesium 1.7 mg/dL (1.6-2.4); Potassium 4.1 mEq/L (3.5-5.1)
[2025-02-18] MEDS: MAGNESIUM SULFATE 1 gm IVPB 1 GM/100 ML BAG IV ONE (06:16)
[2025-02-18] MEDS: D5.45NS W/KCL 20MEQ 1,000 ML IV SCH (06:28)
--- NOTE | 2025-02-18 07:36 | RAD REPORT ---
Procedure: Chest Single View HISTORY: Pneumothorax COMPARISON: February 17, 2025 FINDINGS: Right chest tube in place. Small right apical pneumothorax is present. It is not clearly visualized on the prior exam.
[2025-02-18] MEDS: AMLODIPINE 5 MG TAB PO SCH (08:28)
[2025-02-18] MEDS ORDERED: AMLODIPINE 5 MG TAB PO SCH (09:00)
--- NOTE | 2025-02-18 11:56 | PN ---
Date of Progress Note: 02/18/2025 Subjective: The patient is awake, resting, arousable. No acute pain or difficulty breathing. Objective: Vital Signs: Stable. He is afebrile. Chest: Clear. His chest tube is in place and there is no air leak visualized in the Pleur-evac. Laboratory Data: Reviewed. White count is normal. Chemistry reviewed, essentially unremarkable. H is chest x-ray shows a small apical pneumothorax on the right side, which was not clearly visualized on the prior exam. Assessment: Status post left chest tube placement for pneumothorax and small hemothorax after a fall and multiple rib fractures. Recommendations: We will put the Pleur-evac back on suction. Repeat the x-ray later today and make further recommendation based on the results of the chest x-ray. Continue present management. PARTH/ROSIE Voice ID: [id number] Report ID: [id number]
--- NOTE | 2025-02-18 15:13 | RAD REPORT ---
EXAMINATION: ONE VIEW CHEST XR CLINICAL INDICATION: Evaluate pneumothorax TECHNIQUE: Frontal chest projection is submitted. Examination is limited by patient positioning and t echnique. COMPARISON: 02/18/2025 FINDINGS: Right-sided chest tube is noted. No measurable pneumothorax. Mild interstitial pulmonary edema suspec jhoan. The heart is moderately enlarged. Right lateral rib fracture, partially visualized. IMPRESSION: No measurable pneumothorax.
[2025-02-18] MEDS: METOPROLOL TAR 25 MG TAB PO SCH (17:43)
--- NOTE | 2025-02-18 20:12 | PN ---
Date of Progress Note: 02/18/2025 Subjective: The patient was seen this morning for followup. No new complaints or problems reported by the patient. According to nursing staff, he was lying in bed, not in any distress. Objective: Vital Signs: Reviewed. HEENT: Unremarkable. Lungs: Clear to auscultation. Heart: Sounds normal. Abdomen: Soft. Bowel sounds normal. No guarding, rigidity, tenderness, or distention. Extremities: No leg edema. Laboratory Data: WBC 10.2, hemoglobin 10.3, platelets 125. Sodium 134, potassium 4.1, chloride 104, bicarb 27, BUN 8, creatinine 0.98, glucose 119, magnesium 1.7. Impression: 1. Multiple right-sided rib fractures. 2. Pneumothorax, status post chest tube. 3. Anemia. 4. Thrombocytopenia. 5. Hypertension. 6. Parkinson's disease. 7. Orthostatic hypotension. Plan: We will continue to follow with Dr. Henry. Midodrine was discontinued yesterday because anna brady has been in bed since he came to the hospital. Blood pressure was elevated yesterday. So we star jhoan him on antihypertensive medication. We will continue antihypertensive medication per order, but hold if blood pressure is on the lower end and holding parameters were written. Continue pain medica tion per order. Physical Therapy to work with the patient and the patient is medically stable [facility] See transfer order for more details. I will see him tomorrow for followup. For anemia and thrombocytopenia, no need for further intervention except monitoring. CORBY/MODL Voice ID: [id number] Report ID: [id number]
--- NOTE | 2025-02-19 09:11 | RAD REPORT ---
EXAMINATION: ONE VIEW CHEST XR CLINICAL INDICATION: Male, 84 years old.,Evaluate pneumothorax TECHNIQUE: Frontal chest projection is submitted. Examination is limited by patient positioning and t echnique. COMPARISON: 02/18/2025 FINDINGS: Hypoinflation limits evaluation. Stable positioning of right thoracostomy tube. No residual pneumoth orax. Stable retrocardiac pleural-parenchymal opacity.. The heart is normal in size. Mediastinal contours are unremarkable. IMPRESSION: No appreciable residual pneumothorax. Stable retrocardiac/basal pleural-parenchymal opacity.
--- NOTE | 2025-02-19 12:12 | RAD REPORT ---
EXAMINATION: ONE VIEW CHEST XR CLINICAL INDICATION: Male, 84 years old.,right chest tube taken off suction TECHNIQUE: Frontal chest projection is submitted. Examination is limited by patient positioning and t echnique. COMPARISON: Same day radiograph at 5:41 PM FINDINGS: Decreased inspiratory effort limits evaluation. Right thoracostomy tube unchanged in position. Bibasi lar hazy opacities, may reflect atelectasis. No pneumothorax or sizable effusion. The heart is normal in size. Mediastinal contours are unremarkable. IMPRESSION: No appreciable pneumothorax. Bibasilar hazy opacities could reflect atelectasis.
--- NOTE | 2025-02-19 16:25 | P.PN ---
Date of Service: 02/19/25 Subjective: Patient has no complaints. Objective: Vital signs stable, afebrile. Chest x-ray without suction reveals no evidence of pneumothorax. Chest is clear Procedure note: Under sterile condition chest tube removed. Patient tolerated procedure in stable condition. Chest x-ray post removal has been ordered. Assessment: Pneumothorax, status post chest tube removal Recommendation: Check chest x-ray, leave occlusive dressing on for 48 hours. Discharge planning per Dr. Bray.
--- NOTE | 2025-02-19 17:29 | RAD REPORT ---
Procedure: Chest Single View HISTORY: Right chest tube removal COMPARISON: February 19, 2025 FINDINGS: The right chest tube has been removed. A pneumothorax is not visualized.
--- NOTE | 2025-02-20 06:58 | PN ---
Date of Progress Note: 02/19/2025 Subjective: The patient was seen this morning for followup. No new complaints or problems reported by the patient. Objective: General: Lying in bed, not in any distress. Vital Signs: Reviewed. HEENT: Unremarkable. Lungs: Clear to auscultation. Heart: Sounds normal. Abdomen: Soft. Bowel sounds normal. No guarding, rigidity, tenderness, distention. Extremities: No leg edema. Impression: 1. Pneumothorax. 2. Right-sided rib fracture, multiple. 3. Parkinson disease. 4. Orthostatic hypotension. 5. Hypertension. Plan: We will go ahead and continue to follow up with Dr. Henry, and details were discussed with him today. His pneumothorax problem has resolved with the chest tube, so he will remove that. No need for pleurodesis. Continue current antihypertensive medication per order. Monitor blood pressure. C ontinue fludrocortisone and finasteride. Physical Therapy to continue to work with the patient. I w ill see him tomorrow for followup. There is a good possibility the patient may end up going to skill ed nursing facility because he may not be able to go back home to live with without getting some more assistance and once his condition improves, then he might be able to return back home. In last year or so, he has spent significant amount of time at snf facility and unfortunately it appears that this time he will need to do same thing. CORBY/MODL Voice ID: [id number] Report ID: [id number]
[2025-02-20 07:27] LABS: Absolute Basophils 0.1 K/uL (0-0.5); Absolute Eosinophils 0.2 K/uL (0-0.5); Absolute Lymphocytes (CBC) 1.5 K/uL (0.7-4.9); Absolute Monocytes 1.7 K/uL (0.1-1.3); Absolute Neutrophil 6.4 K/uL (1.8-8.0); Basophils % 0.8 % (0-1.3); Eosinophils % 1.8 % (0-4.4); Hematocrit 32.1 % (39.6-49.0); Hemoglobin 10.6 g/dL (13.6-17.9); Lymphocytes % 15.3 % (15.3-44.8); MCH 29.1 pg (27.0-35.0); MCHC 33.1 g/dL (32.0-36.0); MCV 87.7 fL (80-100); MPV 9.3 fL (7.6-11.3); Monocytes % 17.1 % (3.3-12.3); Nucleated Red Blood Cells % 0.1 % (0-0); Platelets 154 thou/uL (152-406); RBC Red Blood Cell Count 3.66 M/uL (4.33-5.43); Red Cell Distribution Width 15.6 % (12.1-15.2)
--- NOTE | 2025-02-20 07:31 | ECHO ---
HEIGHT: 5 ft 10 in WEIGHT: 209 lb 0 oz DATE OF STUDY: 02/19/[address]: Srikanth Bray MD 2-DIMENSIONAL: YES M.MODE: YES DOPPLER: YES COLOR FLOW: YES TDS: YES PORTABLE: YES DEFINITY: BUBBLE STUDY: DIAGNOSIS: CONGESTIVE HEART FAILURE CARDIAC HISTORY: CATHERIZATION: SURGERY: PROSTHETIC VALVE: PACEMAKER: MEASUREMENTS (cm) DIASTOLIC (NORMALS) SYSTOLIC (NORMALS) IVSd 1.1 (0.6-1.2) LA Diam 4.2 (1.9-4.0) LVEF 60-65% LVIDd 5.1 (3.5-5.7) LVIDs 3.3 (2.0-3.5) %FS 35% LVPWd 1.3 (0.6-1.2) Ao Diam 2.8 (2.0-3.7) 2 DIMENSIONAL ASSESSMENT: RIGHT ATRIUM: NORMAL LEFT ATRIUM: ENLARGED RIGHT VENTRICLE: NORMAL LEFT VENTRICLE: NORMAL TRICUSPID VALVE: TRACE MITRAL REGURGITATION MITRAL VALVE: MILD MITRAL REGURGITATION PULMONIC VALVE: MILD PULMONIC INSUFFICIENCY AORTIC VALVE: NORMAL PERICARDIAL EFFUSION: NONE AORTIC ROOT: NORMAL LEFT VENTRICULAR WALL MOTION: NORMAL DOPPLER/COLOR FLOW: SEE BELOW COMMENTS: 1. NORMAL LEFT VENTRICULAR EJECTION FRACTION 60-65% WITH NORMAL WALL MOTION 2. LEFT ATRIAL ENLARGEMENT 3. MILD MITRAL REGURGITATION, TRICUSPID REGURGITATION, PULMONIC INSUFFICIENCY 4. MODERATE DIASTOLIC DYSFUNCTION TECHNOLOGIST: ANNETTE DURAN
[2025-02-20 07:35] LABS: Anion Gap 9.8 mEq/L (5.0-15.0); Magnesium 1.9 mg/dL (1.6-2.4); Potassium 3.8 mEq/L (3.5-5.1)
[2025-02-20 08:37] LABS: Blood Morphology Comment NOT SEEN (NOT SEEN); Platelet Estimate ADEQ; White Blood Cell Scan OK (OK)
--- NOTE | 2025-02-20 10:32 | PN ---
Date of Progress Note: 02/20/2025 Subjective: The patient is awake, confused, trying to get out of bed, but no breathing difficulties, saturating well. Chest x-ray done yesterday after chest tube removal showed no residual pneumothora x. Dressing is clean, dry, intact. Assessment: Status post removal of chest tube for pneumothorax after a fall with multiple rib fractu res. Recommendations: Keep dressing on for 2 days and then may shower and remove, dressing changes daily. Follow up in my office after discharge for suture removal and discharge planning per Dr. Bray. The patient will probably need to go to a group home. /MODL Voice ID: [id number] Report ID: [id number]
--- NOTE | 2025-02-20 23:03 | PN ---
Date of Progress Note: 02/20/2025 Subjective: The patient was seen this morning for followup. No new complaints or problems reported by him. He was lying in bed, awake, alert, and denied any complaints this morning. Objective: Vital Signs: Reviewed. HEENT: Unremarkable. Lungs: Clear to auscultation. No wheezing. No rales. Heart: Sounds normal. Abdomen: Soft. Bowel sounds normal. No guarding, rigidity, tenderness, or distention. Extremities: No leg edema. Impression: 1. Multiple right-sided rib fracture. 2. Pneumothorax, right side, status post chest tube. 3. Atrial fibrillation. 4. Hypertension. 5. Orthostatic hypotension. Plan: Continue current medication. We will go ahead and discontinue IV fluid. Physical Therapy to work with the patient. Social Service consultation was requested for discharge planning and the nell ent is stable for discharge as early as tomorrow if arrangements gets made by Social Service. I will see him tomorrow morning for followup. CORBY/MODL Voice ID: [id number] Report ID: [id number]
[2025-02-21] MEDS: ACETAMINOPHEN 500 MG TAB PO PRN (09:12)
--- NOTE | 2025-02-21 11:34 | PN ---
Date of Progress Note: 02/21/2025 Subjective: The patient was seen this morning for followup. He was lying in bed, not in any distres s. Denies any new complaints. No chest pain, shortness of breath, nausea, vomiting. Objective: Vital Signs: Reviewed. HEENT: Unremarkable. Lungs: Clear to auscultation. Heart: Sounds normal. Abdomen: Soft. Bowel sounds normal. No guarding, rigidity, tenderness, distention. Extremities: No leg edema. Impression: 1. Multiple right rib fractures. 2. Pneumothorax, status post chest tube, resolved. 3. Hypertension. 4. Orthostatic hypotension. 5. Parkinson disease. Plan: We will go ahead and continue to follow up with Physical Therapy. Continue current medical ma nagement. The patient is doing fine since his chest tube was removed. No respiratory issues noted. We are waiting now on arrangements to be completed for him to go to [facility] facility. Medic ally, the patient is stable for discharge to go to skilled facility as soon as it is arranged. CORBY/MODL Voice ID: [id number] Report ID: [id number]
--- NOTE | 2025-02-22 23:14 | PN ---
Date of Progress Note: 02/22/2025 Subjective: The patient was seen this morning for followup. No new complaints or problems reported by patient. He was lying in bed, not in any distress. Had some confusion this morning and he told tawanda prerna that he really did not know where he was and did not know how long he was in the hospital and I exp lained it to him that he has been in hospital for last few days, had fallen down at home. Had multip le rib fractures causing right-sided pneumothorax requiring chest tube placement and now we are waiti ng on prison arrangements for him to go to [facility]. Denies any complaints thi s morning. Objective: Vital Signs: Reviewed. HEENT: Unremarkable. Lungs: Clear to auscultation. Heart: Sounds normal. Abdomen: Soft. Bowel sounds normal. No guarding, rigidity, tenderness, distention. Extremities: No leg edema. Impression: 1. Multiple right-sided rib fractures. 2. Pneumothorax, status post chest tube placement. 3. Orthostatic hypotension. 4. Hypertension. 5. Parkinson disease. Plan: Continue current medication. We will go ahead and have Physical Therapy continue to work with the patient waiting on insurance company's approval for patient to go to [facility]. As soon as that is arranged, plan is to discharge him to go to such facility. I will see him tomorrow for followup. CORBY/MODL Voice ID: [id number] Report ID: [id number]
--- NOTE | 2025-02-23 09:07 | RAD REPORT ---
Procedure: Chest Single View HISTORY: Pneumothorax COMPARISON: February 19, 2025 FINDINGS: A pneumothorax is not visualized. Lung bases are hazy which could indicate mild atelectasis. Upper lobes clear. Heart remains enlarged.
[2025-02-23 09:24] LABS: Absolute Eosinophils 0.2 K/uL (0-0.5); Absolute Lymphocytes (CBC) 1.3 K/uL (0.7-4.9); Absolute Monocytes 1.1 K/uL (0.1-1.3); Absolute Neutrophil 5.8 K/uL (1.8-8.0); Basophils % 0.6 % (0-1.3); Eosinophils % 2.2 % (0-4.4); Hematocrit 33.2 % (39.6-49.0); Hemoglobin 11.1 g/dL (13.6-17.9); Lymphocytes % 15.4 % (15.3-44.8); MCH 28.8 pg (27.0-35.0); MCHC 33.3 g/dL (32.0-36.0); MCV 86.3 fL (80-100); MPV 8.4 fL (7.6-11.3); Monocytes % 13.4 % (3.3-12.3); Neutrophils % 68.4 % (41.7-73.7); Platelets 250 thou/uL (152-406); RBC Red Blood Cell Count 3.85 M/uL (4.33-5.43); Red Cell Distribution Width 15.7 % (12.1-15.2)
[2025-02-23 09:59] LABS: Anion Gap 10.8 mEq/L (5.0-15.0); Magnesium 2.1 mg/dL (1.6-2.4); Potassium 3.8 mEq/L (3.5-5.1)
--- NOTE | 2025-02-23 11:58 | PN ---
Date of Progress Note: 02/23/2025 Subjective: The patient was seen this morning for followup. No new complaints or problems reported by patient. He was lying in bed. He is confused and told me that he is going to move back to [place]. So obviously he feels like he is somewhere else and not in [place]. Not in any respiratory distress. Objective: Vital Signs: Reviewed. HEENT: Unremarkable. Lungs: Clear to auscultation. Heart: Sounds normal. Abdomen: Soft. Bowel sounds normal. No guarding, rigidity, tenderness, distention. Extremities: No leg edema. Laboratory Data: Chest x-ray shows some bibasilar atelectasis. WBC 8.4 today with hemoglobin 11.1, platelets 250. Sodium 137, potassium 3.8, chloride 104, bicarb 26, BUN 16, creatinine 0.91, glucose 116, magnesium 2.1. Impression: 1. Multiple right-sided rib fractures. 2. Pneumothorax, status post chest tube placement. 3. Hypertension. 4. Orthostatic hypotension. 5. Parkinson's disease. 6. Dementia. Plan: We will go ahead and continue current medication. Continue current antihypertensive medicatio n and fludrocortisone. Continue current medication for his benign prostatic hypertrophy. The patien t is on ceftriaxone which we will continue that at this time and we are awaiting on arrangements to be completed for him to go to assisted facility, which can happen probably as early as tomorrow. CORBY/MODL Voice ID: [id number] Report ID: [id number]
[2025-02-24] MEDS: ASPIRIN 81 MG CHEWABLE TABLET PO SCH (08:37)
--- NOTE | 2025-02-24 20:14 | PN ---
Date of Progress Note: 02/24/2025 Subjective: The patient was seen this morning for followup. When I saw him, he was sleeping, but ta lking to himself, laughing and was talking to himself while he had his eyes closed. Not in any respi ratory distress. Objective: Vital Signs: Reviewed. HEENT: Unremarkable. Lungs: Clear to auscultation. Heart: Sounds normal. Abdomen: Soft. Bowel sounds normal. No guarding, rigidity, tenderness, distention. Extremities: No leg edema. Impression: 1. Multiple right-sided rib fractures. 2. Pneumothorax, right side, status post chest tube. 3. Parkinson's disease. 4. Dementia. 5. Hypertension. 6. Orthostatic hypotension. Plan: We will continue current medication. Continue current Parkinson's medication. We will contin ue his fludrocortisone, finasteride that he takes at home. Physical Therapy to continue to work with the patient. We are waiting on Social Service to complete arrangements for him to go to skilled [facility] ([place], [place]) facility. Medically, he is stable for discharge. CORBY/MODL Voice ID: [id number] Report ID: [id number]
[2025-02-25 06:40] LABS: Anion Gap 9.6 mEq/L (5.0-15.0); Potassium 3.6 mEq/L (3.5-5.1)
[2025-02-25] MEDS: POTASSIUM CL SA 10 MEQ TAB PO ONE (08:01)
--- NOTE | 2025-02-25 20:37 | PN ---
Date of Progress Note: 02/25/2025 Subjective: The patient was seen this morning for followup no new complaints or problems reported by him. He was lying in bed, awake, smiling, and denies any complaints this morning when I saw him. N ot in any respiratory distress. Physical Examination: HEENT: Unremarkable. Lungs: Clear to auscultation. Heart: Sounds normal. Abdomen: Soft. Bowel sounds normal. No guarding, rigidity, tenderness, distention. Extremities: No leg edema. Laboratory Data: Sodium 136, potassium 3.6, chloride 105, bicarb 25, BUN 15, creatinine 0.99, glucos e 103. Impression: 1. Multiple right-sided rib fracture. 2. Pneumothorax, status post chest tube. 3. Hypertension. 4. Orthostatic hypotension. 5. Parkinson disease. Plan: We will go ahead and continue current medications. Continue physical therapy. We are waiting for Social Service to complete arrangements for him to go to senior care facility and as soon as it is arranged, patient will be discharged as he is medically stable for discharge. Continue curren t medication for his benign prostatic hypertrophy and continue fludrocortisone for orthostatic hypote nsion. CORBY/MODL Voice ID: [id number] Report ID: [id number]
[2025-02-26 07:14] LABS: Anion Gap 7.5 mEq/L (5.0-15.0); Potassium 3.5 mEq/L (3.5-5.1)
[2025-02-26 09:29] VITALS: O2SAT 96
[2025-02-26 12:19] VITALS: BP 133/54; TEMP 98.2
== END 2025-02-26 15:34 | DRG 200 ==
LOC: SUPCPDRO 09:53 → ER 09:53 → ERHOLD 15:56 → 3RD-ICU 16:42 → 4TH 02-18 21:50
PROVIDERS: ADMIT Internal Medicine; ATTEND Internal Medicine
PROC: 0W9930Z Drainage of Right Pleural Cavity with Drainage Device, Percutaneous Approach (ICD-10-PCS; principal; 2025-02-16)
DX: S27.0XXA Traumatic pneumothorax, initial encounter (principal); I45.2 Bifascicular block; S22.41XA Multiple fractures of ribs, right side, initial encounter for closed fracture; N10 Acute pyelonephritis; E78.5 Hyperlipidemia, unspecified; I48.0 Paroxysmal atrial fibrillation; I95.1 Orthostatic hypotension; D64.9 Anemia, unspecified; D69.6 Thrombocytopenia, unspecified; K76.0 Fatty (change of) liver, not elsewhere classified; K21.9 Gastro-esophageal reflux disease without esophagitis; N40.1 Benign prostatic hyperplasia with lower urinary tract symptoms; G20.A1 Parkinson's disease without dyskinesia, without mention of fluctuations; F03.90 Unspecified dementia, unspecified severity, without behavioral disturbance, psychotic disturbance, mood disturbance, and anxiety; Z88.2 Allergy status to sulfonamides; Z79.82 Long term (current) use of aspirin; Z79.890 Hormone replacement therapy; Z79.899 Other long term (current) drug therapy; Z86.718 Personal history of other venous thrombosis and embolism
CPT/HCPCS: 36415; 70450; 71045; 71260; 72125; 74177; 80048; 80053; 81001; 83605; 83735; 85025; 85610; 85730; 87040; 93005; 93306; 96361; 96365; 96375; 97110; 97112; 97116; 97161; 97530; 99291; J0696; J1650; J2250; J2270; J2405; J3010; J3475; J7030; Q9967